=== PATIENT | male | born 1960 | race Caucasian/White ===

== ENCOUNTER 2018-06-25 14:06 | Outpatient (CLI) | payer OTHER, SELFPAY ==
[2018-06-25 14:43] LABS: Hemoglobin A1C 10.6 % (4.5-6.2)
== END 2018-06-25 14:26 ==
PROVIDERS: PCP Family Medicine; Visit Provider Family Medicine
DX: E11.9 Type 2 diabetes mellitus without complications (principal)
CPT/HCPCS: 36415; 83036

== ENCOUNTER 2019-02-12 07:12 | Outpatient (CLI) | payer OTHER, SELFPAY ==
--- NOTE | 2019-02-12 08:00 | DIABASSESS_ITS ---
DESCRIPTION/ASSESSMENT: Jose Guadalupe Torre presents for diabetes self management with current A1c 10.8 having it since having a stroke 3-4 years ago. He currently has symptoms of thirst and frequent urination. Otherwise he feels fine. BMI 38 Food: Breakfast of egg and toast or djiboutian muffin with peanut butter and coffee with cream; lunch is tuna salad with onion, celery, tomato and last night had 2 cups chop suey for supper; planning steak and vegetables for supper tonight. Started having yogurt as evening sweet. Drinks many bottles of water daily; beer 2-3 times a month. 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 After his stroke he loved to Mountain bike but does not do this now. Medication: Takes 90u Lantus as one shot daily in addition to Metformin in addition to his stroke medication. Monitoring: has Freestyle Adama and monitors in the morning generally in the 270-350 range no matter the time of day. Coping: Denies stress or depression although he is bummed out about his financial situation though also feels this is getting better. INTERVENTION: DSME is provided in the following AADE 7 areas based on patients interest and assessment of needs in addition to initiating mealtime insulin. Food Guidelines: Reviewed diabetes food guide focused on carbohydrate identification, portions, label reading. Encouraged non-carbohydrate food choices to be complemented with unprocessed carbohydrates. Physical Activity: Discussed cardiovascular activity in addition to his working in the [employer] which he describes more as resistance activity. Medication: Here to begin mealtime insulin, however we do not know his current blood sugars throughout the day. Suggested he begin monitoring blood sugars before each meal and bedtime and return Friday to set dosing based on blood sugars. Monitoring - As above suggest monitoring before each meal and bedtime; or if symptomatic. ACTION PLAN: Monitor blood sugars before each meal and bedtime; document food. Return Friday for follow up to determine insulin regimen of basal bolus dosing. Individual DSME/T __2__ units billed TIME IN: 814 OUT: 919 No DM group education series being offered at this time.
== END 2019-02-12 07:32 ==
PROVIDERS: PCP Family Medicine; Visit Provider Dietitian, Registered
DX: E11.9 Type 2 diabetes mellitus without complications (principal); Z79.4 Long term (current) use of insulin; Z71.3 Dietary counseling and surveillance
CPT/HCPCS: G0108

== ENCOUNTER 2019-02-15 02:01 | Outpatient (CLI) | payer OTHER, SELFPAY ==
--- NOTE | 2019-02-15 08:00 | DIABASSESS_ITS ---
DESCRIPTION/ASSESSMENT: Jose Guadalupe presents for diabetes self management follow up with blood sugars fasting 433 and today 262. Blood sugar after breakfast were mostly in the 300 range at noon; up to 459 a few hours after a meal. INTERVENTION: Based on his reported blood sugars, he is given an insulin dosing scale: 100-130 - 5 units 131-150 - 6 units 151-170 - 7 units 171-190 - 8 units 191-210 - 9 units 210-230 - 10 units 231-250 - 11 units 251-270 - 12 units 271-290 - 13 units 291-310 - 14 units etc. ACTION PLAN: He agrees to monitor blood sugars before each meal; limit between meal snacks; document all food eaten and insulin given. He plans to return 02/19 for review of efficacy of current dosing regimen. Individual DSME/T __1__ units billed TIME IN: 0820 OUT: 0900 No DM group education series being offered at this time.
== END 2019-02-15 02:21 ==
PROVIDERS: PCP Family Medicine; Visit Provider Dietitian, Registered
DX: E11.9 Type 2 diabetes mellitus without complications (principal); Z79.4 Long term (current) use of insulin; Z71.3 Dietary counseling and surveillance
CPT/HCPCS: G0108

== ENCOUNTER 2019-03-05 11:51 | Emergency (ER) | payer OTHER, SELFPAY ==
[2019-03-05] VITALS (34 sets, daily range): BP systolic 133–172; BP diastolic 64–117; PULSE 61–88; RESP 18; TEMP 36.7; O2SAT 90–98
--- NOTE | 2019-03-05 12:15 | W.ED.GENAD ---
Discharge Plan Disposition Patient Disposition: HOME Condition: Good Discharge Details Chief Complaint: Seizure Clinical Impression: Seizure Primary Care Provider: Jose Alfreod Mendoza ED Provider: Anne Alas Home Meds and New Rx's Prescriptions: Continued (DME) FreeStyle Adama 14 Day Sensor Kit See Rx Instructions .ROUTE .MEDSUPPLY Qty: 1 RF: 0 (DME) FreeStyle Adama 14 Day [place] Misc See Rx Instructions .ROUTE .MEDSUPPLY Qty: 1 RF: 4 Lantus Solostar U-100 Insulin 100 unit/mL (3 mL) insulin pen 100 unit subcut DAILY Qty: 3 RF: 5 Humalog U-100 Insulin 100 unit/mL cartridge See Rx Instructions SC .COMPLEX Qty: 15 RF: 4 (DME) FreeStyle Test 1 EACH strip 1 ea Miscellaneous QID Qty: 360 RF: 5 cilostazol 100 MG tablet 100 mg PO BID Qty: 180 RF: 4 Flovent HFA 12 GM HFA aerosol inhaler 110 mcg Inhalation BID Qty: 3 RF: 3 levalbuterol tartrate [Xopenex HFA] 15 GM HFA aerosol inhaler 2 puff Inhalation Q6H PRN Qty: 3 RF: 4 (DME) blood-glucose meter [FreeStyle Lite Meter] 1 EACH kit 1 ea Miscellaneous DAILY Qty: 1 RF: 0 (DME) pen needle, diabetic [BD Ultra-Fine Helene Pen Needle] 32 gauge x 5/32 needle 1 ea Miscellaneous 5 times daily Qty: 200 RF: 5 chlorthalidone 25 mg tablet 25 mg PO DAILY Qty: 90 RF: 4 clopidogrel [Plavix] 75 mg tablet 75 mg PO DAILY Qty: 90 RF: 4 nifedipine 30 mg tablet extended release 24hr 90 mg PO DAILY Qty: 180 RF: 4 guanfacine 1 mg tablet 1 mg PO HS Qty: 90 RF: 3 atorvastatin [Lipitor] 40 mg tablet 40 mg PO DAILY Qty: 90 RF: 4 Jardiance 10 mg tablet 10 mg PO DAILY Qty: 90 RF: 4 levetiracetam [Keppra] 500 mg tablet 1,000 mg PO BID Qty: 180 RF: 4 metformin 500 mg tablet 500 mg PO BID Qty: 180 RF: 4 losartan 100 mg tablet 100 mg PO DAILY Qty: 90 RF: 3 magnesium oxide 400 MG tablet 800 mg PO DAILY Qty: 30 RF: 0 Patient's Own Medication 1 EACH misc 0 ea PO BID Qty: 0 RF: 0 aspirin 325 mg Tablet 325 mg PO DAILY RF: 0 Discharge Instructions Instructions: Epilepsy (ED), Recurrent Seizures in Adults (ED) Additional Instructions: Drink plenty of fluids and get plenty of rest. Take your regular medications as directed. Call Dr. Kaur on Friday morning to schedule a follow-up appointment for reevaluation. Return immediately to the emergency department if you develop any worsening or new concerning symptoms. Discharge Data Discharge Date/Time-TO BE ENTERED AT DEPARTURE: 03/05/19 16:07 Discharge Physician: Anne Alas Medical Decision Making 1220 -- 58yo M with a history of seizures presents for seizure prior to arrival. Patient states he was walking in a gun store when he started to hear music which he states is his usual aura he experiences prior to his seizure. He states he started to lower himself down and passed out for a few seconds. He states this is similar to but more mild than previous seizures. He states his last seizure was 3 months ago. He has not missed any doses of his Keppra recently and took it this morning. He does also have a history of diabetes and states sugars have been between 200-300. states he does not watch his diet. Patient states he saw Dr. Mendoza this morning for evaluation and some of his diabetes medications were increased. Patient initially stated that he did not eat breakfast this morning. After my evaluation, he said that he ate peanut butter and toast. is concerned as patient seems more confused than usual. Discussed that this may be likely postictal. No acute findings on exam. No focal deficits. No evidence of trauma. BP 161/70. Afebrile. Patient appears nontoxic. We will check screening labs, urinalysis, CT head and give fluids. EKG notes a rate of 68, sinus with no acute ST ischemic changes. 1355 --labs and imaging reviewed. Normal white blood cell count. Potassium 3.2. Troponin indeterminate but elevated at 0.07. Urinalysis notes glucose of blood but no obvious infection. CT head negative for acute findings. Patient feels much better. states that patient appears more alert and back to baseline. Patient denied any chest pain or shortness of breath, so do not expect ACS with indeterminate troponin. We will plan for repeat troponin EKG at 230p. 1500 -- Repeat troponin 0.07. Repeat EKG unremarkable. Case discussed with Dr. Rodarte who stated that you can sometimes see elevated troponin status post seizure. Patient again denies any chest pain or shortness of breath. Suggested patient that we can check a third troponin and EKG but pt would rather go home. Presentation does not appear consistent with ACS. Attempted to reach Dr. Kaur but no response. Advised to call Dr. Kaur on Friday morning for follow-up. Usual and customary return precautions given prior to discharge. Medical Records Medical records reviewed: Yes I reviewed the patient's medical records. Imaging Data Radiologic Study: Radiologist's impression: CT HEAD WO CLINICAL HISTORY: post ictal, confusion r/o acute process TECHNIQUE: COMPARISON: No exams were available for comparison FINDINGS: Noncontrast cranial CT was performed. There is an area of encephalomalacia involving right temporal parietal region consistent with old infarct, comparison with prior study of 12/30/2016 shows some extension since that time. No mass effect. No acute hemorrhage. No midline shift. Ex vacuo phenomenon noted involving right lateral ventricle. The orbital and temporal bone structures appear intact. Mastoid air cells appear intact. There is mucoperiosteal thickening of ethmoid sphenoid and frontal sinuses and to a lesser degree the maxillary antra consistent with mild chronic sinusitis. IMPRESSION: no evidence of acute intracranial process. Lab Data Lab results reviewed: Yes I reviewed the patient's lab results. Labs: Laboratory Tests Range/Units 03/05/19 03/05/19 03/05/19 12:35 12:35 13:03 WBC (4.4-10.8) k/cumm 10.27 RBC (4.50-6.00) m/cumm 5.57 Hgb (13.5-17.5) g/dL 15.4 Hct (40.0-50.0) % 44.8 MCV (80-95) fL 80.4 MCH (27.0-33.0) pg 27.6 MCHC (32.0-36.0) g/dL 34.4 RDW (11.8-14.1) % 14.0 Plt Count (130-400) x1000/uL 206 MPV (8.0-11.0) fL 10.4 Immature Gran % % 0.2 Neutrophils % 74.1 Lymphocytes % 16.2 Monocytes % 5.6 Eosinophils % 3.5 Basophils % 0.4 Absolute Neutrophils (1.2-6.7) k/cumm 7.61 H Absolute Lymphocytes (1.2-3.4) k/cumm 1.66 Absolute Monocytes (0.11-0.7) k/cumm 0.58 Absolute Eosinophils (0.0-0.7) k/cumm 0.36 Absolute Basophils (0.0-0.2) k/cumm 0.04 Sodium (136-145) mmol/L 141 Potassium (3.5-5.1) mmol/L 3.2 L Chloride (98-107) mmol/L 101 Carbon Dioxide (21.0-32.0) mmol/L 31.2 Anion Gap (3-11) mmol/L 8.8 BUN (7-18) mg/dL 18 Creatinine (0.70-1.30) mg/dL 0.69 L Estimated GFR/1.73 m2 (mL/min/1.73m2) >= 60.00 Glucose (74-106) mg/dL 288 H Calcium (8.5-10.1) mg/dL 10.0 Magnesium (1.8-2.4) mg/dL 1.9 Total Bilirubin (0.2-1.0) mg/dL 0.5 AST (15-37) U/L 31 ALT (16-63) U/L 57 Alkaline Phosphatase (46-116) U/L 130 H Troponin I (<0.06) ng/Ml 0.07 Total Protein (6.4-8.2) g/dL 7.0 Albumin (3.4-5.0) g/dL 3.9 Urine Color (Yellow) Yellow Urine Clarity (Clear) Clear Urine pH (5-8) 6.0 Ur Specific [place] (1.005-1.025) 1.010 Urine Protein (Negative) mg/dL 30 H Urine Ketones (Negative) mg/dL Negative Urine Blood (Negative) Trace-lysed H Urine Nitrite (Negative) Negative Urine Bilirubin (Negative) Negative Urine Urobilinogen (Up TO 0.2) EU/dL 0.2 Ur Leukocyte Esterase (Negative) Negative Urine RBC (0-2) HPF 3-5 H Urine WBC (0-5) HPF Negative Ur Epithelial Cells (Negative) HPF Rare Urine Crystals (Negative) HPF Negative Urine Bacteria (Negative) HPF Rare Urine Casts (Negative) LPF Negative Urine Mucus (Negative) Negative Urine Other (Negative) Negative Ur Culture Indicated? No Urine Glucose (Negative) mg/dL 500 H Range/Units 03/05/19 14:30 WBC (4.4-10.8) k/cumm RBC (4.50-6.00) m/cumm Hgb (13.5-17.5) g/dL Hct (40.0-50.0) % MCV (80-95) fL MCH (27.0-33.0) pg MCHC (32.0-36.0) g/dL RDW (11.8-14.1) % Plt Count (130-400) x1000/uL MPV (8.0-11.0) fL Immature Gran % % Neutrophils % Lymphocytes % Monocytes % Eosinophils % Basophils % Absolute Neutrophils (1.2-6.7) k/cumm Absolute Lymphocytes (1.2-3.4) k/cumm Absolute Monocytes (0.11-0.7) k/cumm Absolute Eosinophils (0.0-0.7) k/cumm Absolute Basophils (0.0-0.2) k/cumm Sodium (136-145) mmol/L Potassium (3.5-5.1) mmol/L Chloride (98-107) mmol/L Carbon Dioxide (21.0-32.0) mmol/L Anion Gap (3-11) mmol/L BUN (7-18) mg/dL Creatinine (0.70-1.30) mg/dL Estimated GFR/1.73 m2 (mL/min/1.73m2) Glucose (74-106) mg/dL Calcium (8.5-10.1) mg/dL Magnesium (1.8-2.4) mg/dL Total Bilirubin (0.2-1.0) mg/dL AST (15-37) U/L ALT (16-63) U/L Alkaline Phosphatase (46-116) U/L Troponin I (<0.06) ng/Ml 0.07 Total Protein (6.4-8.2) g/dL Albumin (3.4-5.0) g/dL Urine Color (Yellow) Urine Clarity (Clear) Urine pH (5-8) Ur Specific [place] (1.005-1.025) Urine Protein (Negative) mg/dL Urine Ketones (Negative) mg/dL Urine Blood (Negative) Urine Nitrite (Negative) Urine Bilirubin (Negative) Urine Urobilinogen (Up TO 0.2) EU/dL Ur Leukocyte Esterase (Negative) Urine RBC (0-2) HPF Urine WBC (0-5) HPF Ur Epithelial Cells (Negative) HPF Urine Crystals (Negative) HPF Urine Bacteria (Negative) HPF Urine Casts (Negative) LPF Urine Mucus (Negative) Urine Other (Negative) Ur Culture Indicated? Urine Glucose (Negative) mg/dL ECG Data Attestation: I personally reviewed and interpreted this ECG (s) as follows: Interpretation: #1 -- Rate of 68, sinus, no acute ST elevation or depression. ND 192. QTc 413. QRS 94. #2 --Rate of 66, sinus, no acute ST elevation or depression. ND 122. QTc 404. QRS 94. HPI General Mode of arrival: ambulatory. Date/Time Provider Initiated Documentation: 03/05/19 12:04. Limitations to Documentation: no limitations. Information obtained by: patient. History of Present Illness 58 year old M presents to the emergency department with the chief complaint of seizure, Patient started experiencing this hour(s) (2) and it has been now resolved. No relieving factors improve symptom(s), No exacerbating factors reported . Patient notes seizure. Patient did receive the following treatments prior to arrival, none Related Data Home Medications Medication Instructions Recorded Confirmed FreeStyle Test #360 strip 03/14/16 03/05/19 cilostazol 100 mg PO BID #180 tab-cap 11/14/16 03/05/19 Patient's Own Medication 0 ea PO BID #0 misc 01/01/17 03/05/19 magnesium oxide 800 mg PO DAILY #30 tab 01/01/17 03/05/19 Flovent HFA 110 mcg INHALATION BID #3 inhaler 02/27/17 03/05/19 blood-glucose meter [FreeStyle #1 kit 02/27/17 03/05/19 Lite Meter] levalbuterol tartrate [Xopenex HFA] 2 puff INHALATION Q6H PRN #3 02/27/17 03/05/19 inhaler pen needle, diabetic 32 gauge x #200 ea 02/03/18 03/05/19 chlorthalidone 25 mg tablet 25 mg PO DAILY #90 tab-cap 06/08/18 03/05/19 clopidogrel 75 mg tablet 75 mg PO DAILY #90 tab 07/10/18 03/05/19 nifedipine 30 mg tablet,extended 90 mg PO DAILY #180 tab-cap 07/23/18 03/05/19 release 24 hr guanfacine 1 mg tablet 1 mg PO HS #90 tab-cap 11/23/18 03/05/19 atorvastatin 40 mg tablet 40 mg PO DAILY #90 tab-cap 12/01/18 03/05/19 empagliflozin 10 mg tablet 10 mg PO DAILY #90 tab 01/01/19 03/05/19 flash glucose scanning reader #1 each 01/01/19 03/05/19 flash glucose sensor #1 each 01/01/19 03/05/19 levetiracetam 500 mg tablet 1,000 mg PO BID #180 tab 01/25/19 03/05/19 metformin 500 mg tablet 500 mg PO BID #180 tab 03/02/19 03/05/19 losartan 100 mg tablet 100 mg PO DAILY #90 tab-cap 03/03/19 03/05/19 aspirin 325 mg PO DAILY 03/05/19 03/05/19 insulin glargine 100 unit/mL (3 100 unit SUBCUT DAILY #3 ml 03/05/19 03/05/19 mL) subcutaneous pen insulin lispro 100 unit/mL See Rx Instructions SC .COMPLEX 03/05/19 03/05/19 subcutaneous cartridge #15 ml Previous Rx's Medication Instructions Recorded cilostazol 100 mg PO BID #180 tab-cap 11/14/16 Patient's Own Medication 0 ea PO BID #0 misc 01/01/17 magnesium oxide 800 mg PO DAILY #30 tab 01/01/17 Flovent HFA 110 mcg INHALATION BID #3 inhaler 02/27/17 blood-glucose meter [FreeStyle #1 kit 02/27/17 Lite Meter] levalbuterol tartrate [Xopenex HFA] 2 puff INHALATION Q6H PRN #3 02/27/17 inhaler pen needle, diabetic 32 gauge x #200 ea 02/03/18 chlorthalidone 25 mg tablet 25 mg PO DAILY #90 tab-cap 06/08/18 clopidogrel 75 mg tablet 75 mg PO DAILY #90 tab 07/10/18 nifedipine 30 mg tablet,extended 90 mg PO DAILY #180 tab-cap 07/23/18 release 24 hr guanfacine 1 mg tablet 1 mg PO HS #90 tab-cap 11/23/18 atorvastatin 40 mg tablet 40 mg PO DAILY #90 tab-cap 12/01/18 empagliflozin 10 mg tablet 10 mg PO DAILY #90 tab 01/01/19 flash glucose scanning reader #1 each 01/01/19 flash glucose sensor #1 each 01/01/19 levetiracetam 500 mg tablet 1,000 mg PO BID #180 tab 01/25/19 metformin 500 mg tablet 500 mg PO BID #180 tab 03/02/19 losartan 100 mg tablet 100 mg PO DAILY #90 tab-cap 03/03/19 insulin glargine 100 unit/mL (3 100 unit SUBCUT DAILY #3 ml 03/05/19 mL) subcutaneous pen insulin lispro 100 unit/mL See Rx Instructions SC .COMPLEX 03/05/19 subcutaneous cartridge #15 ml Allergies Allergy/AdvReac Type Severity Reaction Status Date / Time metformin AdvReac Intermediate Diarrhea Unverified 03/05/19 12:48 General Stated Complaint: Seizure JIM: 3 Review of Systems All systems reviewed & are unremarkable except as noted in HPI and below Constitutional Constitutional: Reports as per HPI, Denies chills and Denies fever(s) Eyes Eyes: Denies blurry vision ENT Ears, Nose, Mouth, and Throat: Denies dizziness, Denies sore throat and Denies throat swelling Cardiovascular Cardiovascular: Denies chest pain and Denies dyspnea Respiratory Respiratory: Denies cough and Denies dyspnea Gastrointestinal Gastrointestinal: Denies abdominal pain, Denies diarrhea and Denies vomiting Genitourinary Genitourinary: Denies hematuria and Denies dysuria Musculoskeletal Musculoskeletal: Denies back pain and Denies numbness Integumentary/Breasts Skin/Breast: Denies lesions and Denies rash Neurologic Neurologic: Denies dizziness, Denies focal weakness, Denies numbness and Reports seizure-like activity Allergic/Immunologic Allergic/Immunologic: Denies throat swelling [facility] Medical History (Updated 06/25/18 @ 13:29 by Jose Alfredo Mendoza MD) Asthma (Chronic 06/24/12) Cerebrovascular accident (CVA) due to thrombosis of middle cerebral artery (Chronic 09/12/15) Essential hypertension (Chronic 12/10/12) Hypokalemia (Resolved) Hypomagnesemia (Resolved) Morbid obesity due to excess calories (Chronic 05/26/15) Peripheral vascular disease (Chronic 03/28/16) Status post blilateral femoral artery stents. 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 Father Diabetes Essential hypertension Heart disease Stroke Sister No problems noted. Sister No problems noted. Sister No problems noted. Sister No problems noted. Sister No problems noted. Brother Essential hypertension Brother No problems noted. Brother No problems noted. Brother No problems noted. Brother No problems noted. Grandfather No problems noted. Grandfather Diabetes Neoplasm Grandmother Heart disease Grandmother No problems noted. Daughter No problems noted. Daughter No problems noted. Daughter No problems noted. Social History Smoking/Tobacco Use Status: Former Tobacco Use Drug use: Never Do you feel safe in your relationship?: Yes Exam Const General: cooperative, healthy appearing and no acute distress HENMT Head: normal to inspection Face and sinus: normal facial exam Eyes General: appearance normal, both eyes and all related structures Pupils: PERRL EOM: EOM intact bilaterally Neck Neck: normal visual inspection and No submandibular swelling Lymphatic: no lymphadenopathy noted Chest Chest: normal inspection of the chest and no tenderness Resp Effort & Inspection: normal respiratory effort and able to speak in complete sentences Auscultation: clear to auscultation bilaterally Cardio Rate: regular rate Rhythm: regular rhythm GI Inspection: normal to inspection Palpation: soft, not firm, not rigid and nontender Auscultation: normal bowel sounds Skin General skin exam: no rashes or lesions noted Neuro General: alert, awake and oriented x3 Cognition: normal cognition Speech: speech normal Motor: muscle tone normal throughout Sensory Exam: no sensory deficits noted Extrem General: normal to inspection, full ROM, normal capillary refill, no calf tenderness bilaterally and no edema Psych Appearance: grossly normal Mental Status: mental status grossly normal Speech and Movement: speech and movement normal Affect: normal affect Course Vital Signs Vital signs: Vital Signs Temperature 98.1 F 03/05/19 11:54 Pulse 61 03/05/19 11:54 Blood Pressure 161/70 H 03/05/19 11:54 Pulse Oximetry 98 03/05/19 11:54 Temperature 98.1 F 03/05/19 11:54 Temperature Source Skin 03/05/19 11:54 Pulse 61 03/05/19 11:54 Respiratory Effort Non-Labored 03/05/19 12:03 Blood Pressure 161/70 H 03/05/19 11:54 Blood Pressure Position Supine 03/05/19 11:54 Pulse Oximetry 98 03/05/19 11:54 Oxygen Delivery Method Room Air 03/05/19 11:54 Oxygen Flow Rate 0 03/05/19 11:54 Pain Level 0 03/05/19 11:54
[2019-03-05] MEDS: Normal Saline Flush 10 ML SYR IVP (12:42)
[2019-03-05] MEDS: Normal Saline 1,000 ML 1000 ML IV (12:42)
[2019-03-05 12:47] LABS: Abs Immature Grans 0.02 k/cumm (0.0-0.09); Absolute Basophil Count 0.04 k/cumm (0.0-0.2); Absolute Eosinophil Count 0.36 k/cumm (0.0-0.7); Absolute Lymphocyte Count 1.66 k/cumm (1.2-3.4); Absolute Monocyte Count 0.58 k/cumm (0.11-0.7); Absolute Neutrophil Count 7.61 k/cumm (1.2-6.7); Basophils % 0.4; Eosinophils % 3.5; HCT 44.8 % (40.0-50.0); HGB 15.4 g/dL (13.5-17.5); Immature Grans % 0.2 %; Lymphocytes % 16.2; Mean Corp. HGB Concentration 34.4 g/dL (32.0-36.0); Mean Corpuscular Hemoglobin 27.6 pg (27.0-33.0); Mean Corpuscular Volume 80.4 fL (80-95); Mean Platelet Volume 10.4 fL (8.0-11.0); Monocytes % 5.6; Neutrophils % 74.1; Platelet Count 206 x1000/uL (130-400); RBC 5.57 m/cumm (4.50-6.00); White Blood Cell Count 10.27 k/cumm (4.4-10.8)
[2019-03-05 13:06] LABS: ALT 57 U/L (16-63); AST 31 U/L (15-37); Albumin 3.9 g/dL (3.4-5.0); Alkaline Phosphatase 130 U/L (46-116); Anion Gap 8.8 mmol/L (3-11); BUN 18 mg/dL (7-18); Bilirubin, Total 0.5 mg/dL (0.2-1.0); CO2 31.2 mmol/L (21.0-32.0); CREATININE 0.69 mg/dL (0.70-1.30); Chloride 101 mmol/L (98-107); Glucose 288 mg/dL (74-106); Magnesium 1.9 mg/dL (1.8-2.4); Potassium 3.2 mmol/L (3.5-5.1); Sodium 141 mmol/L (136-145)
[2019-03-05 13:08] LABS: Troponin I 0.07 ng/Ml (<0.06)
--- NOTE | 2019-03-05 13:12 | DI.CT_ITS ---
EXAM: CT HEAD WO CLINICAL HISTORY: post ictal, confusion r/o acute process TECHNIQUE: COMPARISON: No exams were available for comparison FINDINGS: Noncontrast cranial CT was performed. There is an area of encephalomalacia involving right temporal parietal region consistent with old infarct, comparison with prior study of 12/30/2016 shows some ex tension since that time. No mass effect. No acute hemorrhage. No midline shift. Ex vacuo phenomen on noted involving right lateral ventricle. The orbital and temporal bone structures appear intact. Mastoid air cells appear intact. There is m ucoperiosteal thickening of ethmoid sphenoid and frontal sinuses and to a lesser degree the maxillary antra consistent with mild chronic sinusitis. IMPRESSION: no evidence of acute intracranial process.
[2019-03-05 13:26] LABS: Bilirubin Negative (Negative); Blood Trace-lysed (Negative); Clarity Clear (Clear); Glucose 500 mg/dL (Negative); Ketones Negative (Negative); Leukocyte Esterase Negative (Negative); Nitrite Negative (Negative); Urobilinogen 0.2 EU/dL (Up TO 0.2)
[2019-03-05 13:36] LABS: Bacteria Rare HPF (Negative); C & S Indicated? No; Casts Negative LPF (Negative); Crystals Negative HPF (Negative); Epithelial Cells Rare HPF (Negative); Mucus Negative (Negative); Other Cells Negative (Negative); WBC Negative HPF (0-5)
[2019-03-05] MEDS: Potassium Chloride 20 MEQ TABCR 40 MEQ PO (15:09)
[2019-03-05 15:35] LABS: Troponin I 0.07 ng/Ml (<0.06)
[2019-03-07 14:07] LABS: Levetiracetam 10.2 mcg/mL
== END 2019-03-05 16:07 | disposition home or self-care (01) ==
PROVIDERS: Emergency Provider Physician Assistant; PCP Family Medicine
DX: R56.9 Unspecified convulsions (principal); I10 Essential (primary) hypertension; E11.9 Type 2 diabetes mellitus without complications; Z79.4 Long term (current) use of insulin
CPT/HCPCS: 36416; 80053; 82962; 93005; 96360; 99285; 70450; 80177; 81003; 81015; 83735; 84484; 85025; 93010; 99284

== ENCOUNTER 2019-03-22 10:47 | Outpatient (CLI) | payer OTHER, SELFPAY | END 2019-03-22 11:07 | PROVIDERS: PCP Family Medicine; Visit Provider Family Medicine | DX: G40.909 Epilepsy, unspecified, not intractable, without status epilepticus (principal); Z51.81 Encounter for therapeutic drug level monitoring | CPT/HCPCS: 36415; 80177 ==

== ENCOUNTER 2020-02-14 15:25 | Inpatient (IN) | payer OTHER, SELFPAY ==
[2020-02-14] VITALS (7 sets, daily range): BP systolic 144–183; BP diastolic 72–90; PULSE 94–108; RESP 16–18; TEMP 36.7–38.7; O2SAT 96–100
--- NOTE | 2020-02-14 15:45 | DI.RAD_ITS ---
EXAM: XR TOE LT SECOND CLINICAL HISTORY: Cellulitis, s/p crush inj. TECHNIQUE: 2D digital imaging was performed. COMPARISON: No exams were available for comparison FINDINGS: BONES: No acute fracture is present. On the oblique view, there is a question of cortical disruption at the margins of the terminal tuft of the distal phalanx of the 2nd toe. Osteomyelitis cannot be e xcluded. JOINTS: No dislocation present. SOFT TISSUE: There is soft tissue swelling of the great toe and 2nd toe. There is air in the soft ti ssues of the 2nd toe particularly distally. There is marked thinning of the soft tissues overlying t he terminal tuft of the distal phalanx of the right 2nd toe. Please correlate with physical exam as to bone exposure. IMPRESSION: 1. Soft tissue swelling and subcutaneous air in the 2nd toe consistent with infection. 2. Question of cortical disruption involving the medial lateral aspects of the terminal tuft of the 2 nd toe. Osteomyelitis should be considered. MRI may be obtained for further evaluation. DATA REPOSITORY: RADIATION DOSE DELIVERED:
--- NOTE | 2020-02-14 15:48 | W.ED.GENAD ---
Discharge Plan Disposition Patient Disposition: [facility] INPATIENT Condition: Stable Discharge Details Clinical Impression: Osteomyelitis Primary Care Provider: Reji Coffman ED Provider: Mohinder Bhatt Home Meds and New Rx's Prescriptions: No Action (DME) FreeStyle Adama 14 Day Sensor Kit See Rx Instructions .ROUTE .MEDSUPPLY Qty: 1 RF: 0 (DME) FreeStyle Adama 14 Day [place] Misc See Rx Instructions .ROUTE .MEDSUPPLY Qty: 1 RF: 4 Jardiance 10 mg tablet 10 mg PO DAILY Qty: 90 RF: 4 guanfacine 1 mg tablet 1 mg PO HS Qty: 90 RF: 3 Flovent HFA 110 mcg/actuation HFA aerosol inhaler 110 mcg Inhalation BID PRNRF: 0 Lantus Solostar U-100 Insulin 100 unit/mL (3 mL) insulin pen 85 unit subcut Q12H RF: 0 (DME) FreeStyle Test 1 EACH strip 1 ea Miscellaneous QID Qty: 360 RF: 5 cilostazol 100 MG tablet 100 mg PO BID Qty: 180 RF: 4 levalbuterol tartrate [Xopenex HFA] 15 GM HFA aerosol inhaler 2 puff Inhalation Q6H PRN Qty: 3 RF: 4 (DME) blood-glucose meter [FreeStyle Lite Meter] 1 EACH kit 1 ea Miscellaneous DAILY Qty: 1 RF: 0 (DME) pen needle, diabetic [BD Ultra-Fine Helene Pen Needle] 32 gauge x 5/32 needle 1 ea Miscellaneous 5 times daily Qty: 200 RF: 5 losartan 100 mg tablet 100 mg PO DAILY Qty: 90 RF: 3 nifedipine 30 mg tablet extended release 24hr 90 mg PO DAILY Qty: 180 RF: 4 chlorthalidone 25 mg tablet 25 mg PO DAILY Qty: 90 RF: 4 clopidogrel [Plavix] 75 mg tablet 75 mg PO DAILY Qty: 90 RF: 4 levetiracetam [Keppra] 500 mg tablet 1,000 mg PO BID Qty: 180 RF: 4 atorvastatin [Lipitor] 40 mg tablet 40 mg PO DAILY Qty: 90 RF: 4 insulin lispro 100 unit/mL insulin pen 5 - 20 unit subcut TID RF: 0 magnesium oxide 400 MG tablet 800 mg PO DAILY Qty: 30 RF: 0 aspirin 325 mg Tablet 325 mg PO DAILY RF: 0 Medical Decision Making 67-year-old male diabetic states he was stepped on by a 2,000 lb horse approximately Dec.27, was seen in clinic 2-3 days later and was placed Keflex for 14 days which he finished before . He has not yet had an XRay of the toe since the original injury. Today he reports 1 week of increased fusiform swelling and discomfort. Seen in urgent care and referred to the ER. His confirms his history of 7 to 10 days of increased swelling, with associated elevated glucose to 400s. He is slightly tachycardic but afebrile. THe left second toe is fusiformly swollen, tender, and erythematous with distal dry ganggrene present over distal phalanx. IV access established, blood cultures laboratories. Referred for x-ray and patient given loading dose of Vancomycin. XR: Air soft tissues of the 2nd distal phalanx. Bony changes consistent with osteomyelitis. Labs: White blood cell count 13. Hct 48. Left shift present. Sed rate elevated at 24. CRp elevated to 24. Case discussedwith Dr Azul for admission as well as Dr Flores's office who state he is available for consult on the patient tomorrow. Lab Data Lab results reviewed: Yes I reviewed the patient's lab results. Labs: Laboratory Results - last 24 hr 02/14/20 02/14/20 02/14/20 16:00 16:00 16:35 WBC 13.29 H RBC 6.00 H Hgb 16.2 Hct 48.3 MCV 80.5 MCH 27.0 MCHC 33.5 RDW 13.5 Plt Count 243 MPV 10.1 Immature Gran % 0.3 Neutrophils % 78.2 Lymphocytes % 12.6 Monocytes % 7.8 Eosinophils % 0.8 Basophils % 0.3 Nucleated RBC % 0 Absolute Neutrophils 10.39 H Absolute Lymphocytes 1.67 Absolute Monocytes 1.04 H Absolute Eosinophils 0.11 Absolute Basophils 0.04 ESR 24 H Sodium 135 L Potassium 3.3 L Chloride 97 L Carbon Dioxide 30.5 Anion Gap 7.5 BUN 30 H Creatinine 0.96 Estimated GFR/1.73 m2 >= 60.00 Glucose 281 H Calcium 10.9 H Magnesium 2.0 Total Bilirubin 0.6 AST 15 ALT 33 Alkaline Phosphatase 114 C-Reactive Protein 12.48 H Total Protein 7.8 Albumin 3.5 Urine Color Yellow Urine Clarity Clear Urine pH 5.5 Ur Specific [place] 1.020 Urine Protein 100 H Urine Ketones 15 H Urine Blood Small H Urine Nitrite Negative Urine Bilirubin Negative Urine Urobilinogen 0.2 Ur Leukocyte Esterase Negative Urine RBC Negative Urine WBC Negative Ur Epithelial Cells Negative Urine Crystals Negative Urine Bacteria Negative Urine Casts Negative Urine Mucus Negative Urine Other Negative Ur Culture Indicated? No Urine Glucose 500 H HPI General Mode of arrival: ambulatory. Date/Time Provider Initiated Documentation: 02/14/20 15:26. Limitations to Documentation: no limitations. Information obtained by: patient. History of Present Illness 59 year old M presents to the emergency department with the chief complaint of Referred from urgent care for toe infection, described as moderate, Quality is described as dull and constant, and is localized to the left and lower extremity. Patient reports no radiation. Patient started experiencing this week(s) and it has been constant. Rest improves symptom(s), Other factors that worsen symptoms (rubbing against) . Patient notes no other symptoms.; denies fever/chills and nausea/vomiting. Patient did receive the following treatments prior to arrival, none Related Data Home Medications Medication Instructions Recorded Confirmed FreeStyle Test #360 strip 03/14/16 02/14/20 cilostazol 100 mg PO BID #180 tab-cap 11/14/16 02/14/20 magnesium oxide 800 mg PO DAILY #30 tab 01/01/17 02/14/20 blood-glucose meter [FreeStyle #1 kit 02/27/17 02/14/20 Lite Meter] levalbuterol tartrate [Xopenex HFA] 2 puff INHALATION Q6H PRN #3 02/27/17 02/14/20 inhaler pen needle, diabetic 32 gauge x #200 ea 02/03/18 02/14/20 5/32 flash glucose scanning reader #1 each 01/01/19 02/14/20 flash glucose sensor #1 each 01/01/19 02/14/20 losartan 100 mg tablet 100 mg PO DAILY #90 tab-cap 03/03/19 02/14/20 aspirin 325 mg PO DAILY 03/05/19 02/14/20 chlorthalidone 25 mg tablet 25 mg PO DAILY #90 tab-cap 06/14/19 02/14/20 nifedipine 30 mg tablet,extended 90 mg PO DAILY #180 tab-cap 06/14/19 02/14/20 release 24 hr clopidogrel 75 mg tablet 75 mg PO DAILY #90 tab 07/12/19 02/14/20 levetiracetam 500 mg tablet 1,000 mg PO BID #180 tab 07/23/19 02/14/20 empagliflozin 10 mg tablet 10 mg PO DAILY #90 tab 11/05/19 02/14/20 guanfacine 1 mg tablet 1 mg PO HS #90 tab-cap 11/05/19 02/14/20 atorvastatin 40 mg tablet 40 mg PO DAILY #90 tab-cap 12/12/19 02/14/20 insulin lispro 100 unit/mL 5 - 20 unit SUBCUT TID ml 01/12/20 02/14/20 subcutaneous pen fluticasone propionate 110 110 mcg INHALATION BID PRN inhaler 01/17/20 02/14/20 mcg/actuation HFA aerosol inhaler insulin glargine 100 unit/mL (3 85 unit SUBCUT Q12H ml 01/17/20 02/14/20 mL) subcutaneous pen Previous Rx's Medication Instructions Recorded cilostazol 100 mg PO BID #180 tab-cap 11/14/16 magnesium oxide 800 mg PO DAILY #30 tab 01/01/17 blood-glucose meter [FreeStyle #1 kit 02/27/17 Lite Meter] levalbuterol tartrate [Xopenex HFA] 2 puff INHALATION Q6H PRN #3 02/27/17 inhaler pen needle, diabetic 32 gauge x #200 ea 02/03/18 flash glucose scanning reader #1 each 01/01/19 flash glucose sensor #1 each 01/01/19 losartan 100 mg tablet 100 mg PO DAILY #90 tab-cap 03/03/19 chlorthalidone 25 mg tablet 25 mg PO DAILY #90 tab-cap 06/14/19 nifedipine 30 mg tablet,extended 90 mg PO DAILY #180 tab-cap 06/14/19 release 24 hr clopidogrel 75 mg tablet 75 mg PO DAILY #90 tab 07/12/19 levetiracetam 500 mg tablet 1,000 mg PO BID #180 tab 07/23/19 empagliflozin 10 mg tablet 10 mg PO DAILY #90 tab 11/05/19 guanfacine 1 mg tablet 1 mg PO HS #90 tab-cap 11/05/19 atorvastatin 40 mg tablet 40 mg PO DAILY #90 tab-cap 12/12/19 Allergies Allergy/AdvReac Type Severity Reaction Status Date / Time metformin AdvReac Intermediate Diarrhea Verified 02/14/20 15:35 General Stated Complaint: Cellulitis JIM: 3 Review of Systems Narrative: nauseated. elevated glucose to 400's. [facility] Medical History Asthma (06/24/12) Cerebrovascular accident (CVA) due to thrombosis of middle cerebral artery (09/12/15) Essential hypertension (12/10/12) Hypokalemia Hypomagnesemia Morbid obesity due to excess calories (05/26/15) Peripheral vascular disease (03/28/16) Status post blilateral femoral artery stents. 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 Father Diabetes Essential hypertension Heart disease Stroke Sister No problems noted. Sister No problems noted. Sister No problems noted. Sister No problems noted. Sister No problems noted. Brother Essential hypertension Brother No problems noted. Brother No problems noted. Brother No problems noted. Brother No problems noted. Grandfather No problems noted. Grandfather Diabetes Neoplasm Grandmother Heart disease Grandmother No problems noted. Daughter No problems noted. Daughter No problems noted. Daughter No problems noted. Social History Smoking/Tobacco Use Status: Never Smoking risk assessment performed?: Yes Alcohol Intake: never Drug use: Never Substance use type: does not use Do you feel safe in your relationship?: Yes Exam Narrative Exam Narrative: GEN: awake, alert, oriented 3. Pleasant, well groomed, interactive. HEAD: Normocephalic, atraumatic ENT: Mucous membranes moist, oropharynx unremarkable, External ear exam unremarkable EYES: PERRL, EOMI NECK: Full ROM, no MICKY, no menigismus CHEST/RESP: Nontender, clear to auscultation bilateral, no wheeze/rhonchi/rales CARDIOVASCULAR: Regular tachycardia, no murmur, rub yudith. 2+ Rad pulse bilateral ABDOMEN: Soft, nontender, no mass. +Bowel sounds EXT: Full ROM, L second toe with fusiform erythema, distal dry gangrene, distal left foot erythematous, swollen, tender. Neuro: Grossly normal neurologic exam, conversant, interactive. Psych: Speech fluent, thoughts congruent, affect normal Course Vital Signs Vital signs: Vital Signs Temperature 37.1 C 02/14/20 15:30 Pulse 105 H 02/14/20 15:30 Respiratory Rate 16 02/14/20 15:30 Blood Pressure 183/78 H 02/14/20 15:30 Pulse Oximetry 100 02/14/20 15:30 Temperature 37.1 C 02/14/20 15:30 Temperature Source Skin 02/14/20 15:30 Pulse 105 H 02/14/20 15:30 Respiratory Rate 16 02/14/20 15:30 Respiratory Effort Non-Labored 02/14/20 15:30 Blood Pressure 183/78 H 02/14/20 15:30 Blood Pressure Position Supine 02/14/20 15:30 Pulse Oximetry 100 02/14/20 15:30 Oxygen Delivery Method Room Air 02/14/20 15:30 Oxygen Flow Rate 0 02/14/20 15:30 Pain Level 1 02/14/20 15:30
[2020-02-14] MEDS: Normal Saline 1,000 ML 125 ML IV ×2 (16:00→20:57)
[2020-02-14] MEDS: Normal Saline Flush 10 ML SYR IVP (16:00)
[2020-02-14 16:08] LABS: Abs Immature Grans 0.04 10^3/uL (0.0-0.06); Absolute Basophil Count 0.04 10^3/uL (0.0-0.2); Absolute Eosinophil Count 0.11 10^3/uL (0.0-0.7); Absolute Lymphocyte Count 1.67 10^3/uL (1.2-3.4); Basophils % 0.3; Eosinophils % 0.8; HCT 48.3 % (40.0-50.0); HGB 16.2 g/dL (13.5-17.5); Immature Grans % 0.3; Lymphocytes % 12.6; MCHC 33.5 % (32.0-36.0); MCV 80.5 fL (80-95); MPV 10.1 fL (8.0-11.0); Monocytes % 7.8; Neutrophils % 78.2; Nucleated RBC 0 %; Platelet Count 243 10^3/uL (130-400); RDW 13.5 % (11.8-14.1); RDW-SD 39.1 fL; WBC 13.29 10^3/uL (4.4-10.8)
[2020-02-14 16:10] LABS: Absolute Monocyte Count 1.04 10^3/uL (0.1-0.8); Absolute Neutrophil Count 10.39 10^3/uL (1.2-6.7)
[2020-02-14] MEDS: VANCOMYCIN/WATER (PEG) 2 GM/400 ML BAG IVPB (16:20)
[2020-02-14 16:27] LABS: ALT 33 U/L (16-63); AST 15 U/L (15-37); Albumin 3.5 g/dL (3.4-5.0); Alkaline Phosphatase 114 U/L (46-116); Anion Gap 7.5 mmol/L (3-11); BUN 30 mg/dL (7-18); Bilirubin, Total 0.6 mg/dL (0.2-1.0); C-Reactive Protein 12.48 mg/dL (0.0-0.3); CO2 30.5 mmol/L (21.0-32.0); CREATININE 0.96 mg/dL (0.70-1.30); Calcium 10.9 mg/dL (8.5-10.1); Chloride 97 mmol/L (98-107); Glucose 281 mg/dL (74-106); Potassium 3.3 mmol/L (3.5-5.1); Sodium 135 mmol/L (136-145); Total Protein 7.8 g/dL (6.4-8.2)
[2020-02-14 16:38] LABS: Bilirubin Negative (Negative); Blood Small (Negative); Clarity Clear (Clear); Glucose 500 mg/dL (Negative); Ketones 15 mg/dL (Negative); Leukocyte Esterase Negative (Negative); Nitrite Negative (Negative); Urobilinogen 0.2 EU/dL (Up TO 0.2); pH 5.5 (5-8)
[2020-02-14 16:43] LABS: ESR 24 mm/hr (1-20)
[2020-02-14 16:47] LABS: Bacteria Negative HPF (Negative); C & S Indicated? No; Casts Negative LPF (Negative); Crystals Negative HPF (Negative); Epithelial Cells Negative HPF (Negative); Mucus Negative (Negative); Other Cells Negative (Negative); RBC Negative HPF (0-2); WBC Negative HPF (0-5)
--- NOTE | 2020-02-14 16:49 | DI.VRAD_ITS ---
PROCEDURE INFORMATION: Exam: XR Left Toe(s) Exam date and time: 02/14/2020 4:40 PM Age: 59 years old Clinical indication: Injury or trauma; Other: Cellulitis; Crushing; Toes; Left lesser toe(s) TECHNIQUE: Imaging protocol: XR Left toes. Views: Minimum 2 views. COMPARISON: No relevant prior studies available. FINDINGS: Bones/joints: There is no evidence of acute fracture.There is no evidence of malalignment or dislocation. There is air within the bone consistent with osteomyelitis. Soft tissues: Air in the soft tissues in the distal toe phalanx of the 2nd toe. Consistent with infection . IMPRESSION: 1. There is no evidence of acute fracture.There is no evidence of malalignment or dislocation. 2. Air in the soft tissues in the distal toe phalanx of the 2nd toe. Consistent with infection . 3. There is air within the bone consistent with osteomyelitis. Dictated and Authenticated by: Martha Callaway MD. Ordering:SONAM Vines MD
--- NOTE | 2020-02-14 17:36 | W.PM.HP.N ---
Date of service: 02/14/20 Time of Service: 17:36 Assessment and Plan Assessment and plan (1) Osteomyelitis: Status: Acute Assessment and plan: Osteo of toe in diabetic with PVD. Will need biopsy, will likely eventuate in amputation of at least the distal phalanx. Will consult podiatry. In meantime will change antibiotics to more broad spectrum coverage for presumed polymicrobial infection. History of Present Illness History of Present Illness Chief Complaint: toe pain Narrative: 59 male diabetic with PVD -- horse stepped on left foot early December, developed infection and was treated with Keflex for 2 weeks. Largely resolved, but never entirely, and has had persistent eschar distal 2nd toe. Now has one week of increasing redness, swelling and pain in toe. In ER findings of note for white count 13, CRP 12 and film demonstrating findings of osteo in distal phalanx. Given loading dose Vanco and admitted for further management. Review of Systems All systems reviewed & are unremarkable except as noted in HPI and below PFSH Medical History Asthma (06/24/12) Cerebrovascular accident (CVA) due to thrombosis of middle cerebral artery (09/12/15) Essential hypertension (12/10/12) Hypokalemia Hypomagnesemia Morbid obesity due to excess calories (05/26/15) Peripheral vascular disease (03/28/16) Status post blilateral femoral artery stents. 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 Father Diabetes Essential hypertension Heart disease Stroke Sister No problems noted. Sister No problems noted. Sister No problems noted. Sister No problems noted. Sister No problems noted. Brother Essential hypertension Brother No problems noted. Brother No problems noted. Brother No problems noted. Brother No problems noted. Grandfather No problems noted. Grandfather Diabetes Neoplasm Grandmother Heart disease Grandmother No problems noted. Daughter No problems noted. Daughter No problems noted. Daughter No problems noted. Social History Smoking/Tobacco Use Status: Never Smoking risk assessment performed?: Yes Alcohol Intake: never Drug use: Never Substance use type: does not use Do you feel safe in your relationship?: Yes Meds Home Medications and Allergies Home Medications Medication Instructions Recorded Confirmed Type FreeStyle Test #360 strip 03/14/16 02/14/20 History cilostazol 100 mg PO BID #180 tab-cap 11/14/16 02/14/20 Rx magnesium oxide 800 mg PO DAILY #30 tab 01/01/17 02/14/20 Rx blood-glucose meter [FreeStyle #1 kit 02/27/17 02/14/20 Rx Lite Meter] levalbuterol tartrate [Xopenex HFA] 2 puff INHALATION Q6H PRN #3 02/27/17 02/14/20 Rx inhaler pen needle, diabetic 32 gauge x #200 ea 02/03/18 02/14/20 Rx 5/32 flash glucose scanning reader #1 each 01/01/19 02/14/20 Rx flash glucose sensor #1 each 01/01/19 02/14/20 Rx losartan 100 mg tablet 100 mg PO DAILY #90 tab-cap 03/03/19 02/14/20 Rx aspirin 325 mg PO DAILY 03/05/19 02/14/20 History chlorthalidone 25 mg tablet 25 mg PO DAILY #90 tab-cap 06/14/19 02/14/20 Rx nifedipine 30 mg tablet,extended 90 mg PO DAILY #180 tab-cap 06/14/19 02/14/20 Rx release 24 hr clopidogrel 75 mg tablet 75 mg PO DAILY #90 tab 07/12/19 02/14/20 Rx levetiracetam 500 mg tablet 1,000 mg PO BID #180 tab 07/23/19 02/14/20 Rx empagliflozin 10 mg tablet 10 mg PO DAILY #90 tab 11/05/19 02/14/20 Rx guanfacine 1 mg tablet 1 mg PO HS #90 tab-cap 11/05/19 02/14/20 Rx atorvastatin 40 mg tablet 40 mg PO DAILY #90 tab-cap 12/12/19 02/14/20 Rx insulin lispro 100 unit/mL 5 - 20 unit SUBCUT TID ml 01/12/20 02/14/20 History subcutaneous pen fluticasone propionate 110 110 mcg INHALATION BID PRN inhaler 01/17/20 02/14/20 History mcg/actuation HFA aerosol inhaler insulin glargine 100 unit/mL (3 85 unit SUBCUT Q12H ml 01/17/20 02/14/20 History mL) subcutaneous pen Allergies Allergy/AdvReac Type Severity Reaction Status Date / Time metformin AdvReac Intermediate Diarrhea Verified 02/14/20 15:35 Exam Narrative Exam Narrative: 183/78, 105, 37.1, 16, 100% RA. HEENT unremarkable; neck supple; lungs clear; heart distant but RRR; abdomen soft and NT; extremities dry gangrene distal left 2nd toe, with fusiform swelling and erythema involving entire digit and somewhat proximal tometatarsal. Right opedal pulses weakly palpable; left DP pulse weakly obtainable by Doppler, though good capillary refill Results Labs Result diagrams: 02/14/20 16:00 02/14/20 16:00 Labs: Laboratory Results - last 24 hr 02/14/20 02/14/20 02/14/20 16:00 16:00 16:35 WBC 13.29 H RBC 6.00 H Hgb 16.2 Hct 48.3 MCV 80.5 MCH 27.0 MCHC 33.5 RDW 13.5 Plt Count 243 MPV 10.1 Immature Gran % 0.3 Neutrophils % 78.2 Lymphocytes % 12.6 Monocytes % 7.8 Eosinophils % 0.8 Basophils % 0.3 Nucleated RBC % 0 Absolute Neutrophils 10.39 H Absolute Lymphocytes 1.67 Absolute Monocytes 1.04 H Absolute Eosinophils 0.11 Absolute Basophils 0.04 ESR 24 H Sodium 135 L Potassium 3.3 L Chloride 97 L Carbon Dioxide 30.5 Anion Gap 7.5 BUN 30 H Creatinine 0.96 Estimated GFR/1.73 m2 >= 60.00 Glucose 281 H Calcium 10.9 H Magnesium 2.0 Total Bilirubin 0.6 AST 15 ALT 33 Alkaline Phosphatase 114 C-Reactive Protein 12.48 H Total Protein 7.8 Albumin 3.5 Urine Color Yellow Urine Clarity Clear Urine pH 5.5 Ur Specific [place] 1.020 Urine Protein 100 H Urine Ketones 15 H Urine Blood Small H Urine Nitrite Negative Urine Bilirubin Negative Urine Urobilinogen 0.2 Ur Leukocyte Esterase Negative Urine RBC Negative Urine WBC Negative Ur Epithelial Cells Negative Urine Crystals Negative Urine Bacteria Negative Urine Casts Negative Urine Mucus Negative Urine Other Negative Ur Culture Indicated? No Urine Glucose 500 H Last Vital Signs Temp 37.1 C 02/14/20 15:30 Pulse 105 H 02/14/20 15:30 Resp 16 02/14/20 15:30 BP 183/78 H 02/14/20 15:30 Pulse Ox 100 02/14/20 15:30 COVID-19 Screening Have you, or household traveled for leisure in last 14 days?: No Had IN PERSON contact w/suspected or confirmed C-19 person: No
[2020-02-14] MEDS: Acetaminophen 500 MG TAB 1000 MG PO (17:49)
[2020-02-14] MEDS: levETIRAcetam 500 MG TAB 1000 MG PO (20:55)
[2020-02-14] MEDS: PIPERACILLIN/TAZO 3.375 GM in Normal Saline 50 ML IVPB (20:58)
[2020-02-14] MEDS: Insulin Glargine 300 UNITS/3 ML PEN 85 UNITS SC (21:00)
[2020-02-15] VITALS (8 sets, daily range): BP systolic 129–172; BP diastolic 69–85; PULSE 78–88; RESP 17–18; TEMP 36.2–38.7; O2SAT 92–96
[2020-02-15] MEDS: Cilostazol 100 MG TAB PO (00:37)
[2020-02-15] MEDS: Zolpidem 5 MG TAB PO ×2 (00:44→21:47)
[2020-02-15] MEDS: guanFACINE 1 MG TAB PO ×2 (00:55→21:47)
[2020-02-15] MEDS: PIPERACILLIN/TAZO 3.375 GM in Normal Saline 50 ML IVPB ×4 (04:14→21:50)
[2020-02-15] MEDS: Normal Saline 1,000 ML 125 ML IV ×2 (06:26→17:19)
[2020-02-15] MEDS: Normal Saline Flush 10 ML SYR IVP (06:29)
[2020-02-15] MEDS: Insulin Glargine 300 UNITS/3 ML PEN 85 UNITS SC ×2 (06:35→18:49)
--- NOTE | 2020-02-15 07:16 | HPE_ITS ---
Date of service: 02/15/20 Time of Service: 07:17 History of Present Illness History of Present Illness Chief Complaint: Gangrene, osteomyelitis, cellulitis left second toe. Narrative: 59-year-old male whose left foot was stepped on a horse weighing approximately 1200 pounds on December 27. Was initially treated with 2 weeks of oral Keflex showed signs of initial improvement. Unfortunately, there has been increasing redness, cellulitis extending to the midfoot, gangrenous change at the tip of the second toe with radiographic evidence of osteomyelitis affecting the distal phalanx requiring hospital admission through the ER yesterday. [facility] Medical History Asthma (06/24/12) Cerebrovascular accident (CVA) due to thrombosis of middle cerebral artery (09/12/15) Essential hypertension (12/10/12) Hypokalemia Hypomagnesemia Morbid obesity due to excess calories (05/26/15) Peripheral vascular disease (03/28/16) Status post blilateral femoral artery stents. 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 Father Diabetes Essential hypertension Heart disease Stroke Sister No problems noted. Sister No problems noted. Sister No problems noted. Sister No problems noted. Sister No problems noted. Brother Essential hypertension Brother No problems noted. Brother No problems noted. Brother No problems noted. Brother No problems noted. Grandfather No problems noted. Grandfather Diabetes Neoplasm Grandmother Heart disease Grandmother No problems noted. Daughter No problems noted. Daughter No problems noted. Daughter No problems noted. Social History Smoking/Tobacco Use Status: Never Smoking risk assessment performed?: Yes Alcohol Intake: never Drug use: Never Substance use type: does not use Do you feel safe in your relationship?: Yes Meds Home Medications and Allergies Home Medications Medication Instructions Recorded Confirmed Type FreeStyle Test #360 strip 03/14/16 02/14/20 History cilostazol 100 mg PO BID #180 tab-cap 11/14/16 02/14/20 Rx magnesium oxide 800 mg PO DAILY #30 tab 01/01/17 02/14/20 Rx blood-glucose meter [FreeStyle #1 kit 02/27/17 02/14/20 Rx Lite Meter] levalbuterol tartrate [Xopenex HFA] 2 puff INHALATION Q6H PRN #3 02/27/17 02/14/20 Rx inhaler pen needle, diabetic 32 gauge x #200 ea 02/03/18 02/14/20 Rx /32 flash glucose scanning reader #1 each 01/01/19 02/14/20 Rx flash glucose sensor #1 each 01/01/19 02/14/20 Rx losartan 100 mg tablet 100 mg PO DAILY #90 tab-cap 03/03/19 02/14/20 Rx aspirin 325 mg PO DAILY 03/05/19 02/14/20 History chlorthalidone 25 mg tablet 25 mg PO DAILY #90 tab-cap 06/14/19 02/14/20 Rx nifedipine 30 mg tablet,extended 90 mg PO DAILY #180 tab-cap 06/14/19 02/14/20 Rx release 24 hr clopidogrel 75 mg tablet 75 mg PO DAILY #90 tab 07/12/19 02/14/20 Rx levetiracetam 500 mg tablet 1,000 mg PO BID #180 tab 07/23/19 02/14/20 Rx empagliflozin 10 mg tablet 10 mg PO DAILY #90 tab 11/05/19 02/14/20 Rx guanfacine 1 mg tablet 1 mg PO HS #90 tab-cap 11/05/19 02/14/20 Rx atorvastatin 40 mg tablet 40 mg PO DAILY #90 tab-cap 12/12/19 02/14/20 Rx insulin lispro 100 unit/mL 5 - 20 unit SUBCUT TID ml 01/12/20 02/14/20 History subcutaneous pen fluticasone propionate 110 110 mcg INHALATION BID PRN inhaler 01/17/20 02/14/20 History mcg/actuation HFA aerosol inhaler insulin glargine 100 unit/mL (3 85 unit SUBCUT Q12H ml 01/17/20 02/14/20 History mL) subcutaneous pen Allergies Allergy/AdvReac Type Severity Reaction Status Date / Time metformin AdvReac Intermediate Diarrhea Verified 02/14/20 15:35 Exam Narrative Exam Narrative: Jose Guadalupe is resting comfortably in bed. He is awake, alert and appropriately concerned. Indicates he has had a history of seizures but his last episode was 2 to 3 years ago. The started following his CVA. Peripheral pulses are diminished at the ankle but his feet are warm to the touch. There is no peripheral edema. He has ample pedal hair extending to his ankles bilaterally, and hair noted on the digits. Calves are soft to palpation no findings of DVT.. Strong popliteal artery is palpable on the right knee less so on the left. He has had stenting performed of his femorals at [facility] approximately 2 to 3 years ago. He states that he has no difficulty walking for an extended period of time. No cramps no tightness of his legs. Muscle groups are 5 out of 5 bilaterally Skeletal exam reveals a grossly edematous left second toe with erythema extending to the midfoot dorsally.. Black gangrenous changes are appreciated af fecting the tip of the toe extending to the distal interphalangeal joint. Serous drainage is noted coming from the lateral side of the toe towards the webspace.. The remaining skeletal exam was otherwise grossly benign at this time. Neurologically he appears to be grossly intact but I suspect there is some low- grade diabetic neuropathy present. Toes were downgoing. Radiographs obtained yesterday reveal bone destruction occurring at the distal phalanx of the second toe consistent with osteomyelitis. Currently on IV Zosyn every 6 hours, labs were reviewed, microbiology Gram stain gram-positive cocci, sensitivities to follow. Impressions: Crush injury left second toe resulting in gangrenous change underlying osteomyelitis and a poorly controlled diabetic with PVD Plan: Lose you brought to the OR for an open amputation of the left second toe. He fully understands the permanency of the procedure. He understands that revisional procedures with more proximal loss of tissue may be required based on how he heals postoperatively. All questions have been answered. No promises made to final outcome of surgery. Informed consent has been obtained. Results Labs Result diagrams: 02/14/20 16:00 02/14/20 16:00 Labs: Laboratory Results - last 24 hr 02/14/20 02/14/20 02/14/20 16:00 16:00 16:35 WBC 13.29 H RBC 6.00 H Hgb 16.2 Hct 48.3 MCV 80.5 MCH 27.0 MCHC 33.5 RDW 13.5 Plt Count 243 MPV 10.1 Immature Gran % 0.3 Neutrophils % 78.2 Lymphocytes % 12.6 Monocytes % 7.8 Eosinophils % 0.8 Basophils % 0.3 Nucleated RBC % 0 Absolute Neutrophils 10.39 H Absolute Lymphocytes 1.67 Absolute Monocytes 1.04 H Absolute Eosinophils 0.11 Absolute Basophils 0.04 ESR 24 H Sodium 135 L Potassium 3.3 L Chloride 97 L Carbon Dioxide 30.5 Anion Gap 7.5 BUN 30 H Creatinine 0.96 Estimated GFR/1.73 m2 >= 60.00 Glucose 281 H Calcium 10.9 H Magnesium 2.0 Total Bilirubin 0.6 AST 15 ALT 33 Alkaline Phosphatase 114 C-Reactive Protein 12.48 H Total Protein 7.8 Albumin 3.5 Urine Color Yellow Urine Clarity Clear Urine pH 5.5 Ur Specific [place] 1.020 Urine Protein 100 H Urine Ketones 15 H Urine Blood Small H Urine Nitrite Negative Urine Bilirubin Negative Urine Urobilinogen 0.2 Ur Leukocyte Esterase Negative Urine RBC Negative Urine WBC Negative Ur Epithelial Cells Negative Urine Crystals Negative Urine Bacteria Negative Urine Casts Negative Urine Mucus Negative Urine Other Negative Ur Culture Indicated? No Urine Glucose 500 H Last Vital Signs Temp 36.7 C 02/14/20 23:34 Pulse 94 H 02/14/20 23:34 Resp 18 02/14/20 23:34 BP 144/74 H 02/14/20 23:34 Pulse Ox 96 02/14/20 23:34 COVID-19 Screening Have you, or household traveled for leisure in last 14 days?: No Had IN PERSON contact w/suspected or confirmed C-19 person: No
--- NOTE | 2020-02-15 08:14 | AMP_PTH ---
PATIENT: Jose Guadalupe Landeros LOC: U#:[id number] AGE/SX: 59/M ROOM: RE02/14/[address]: Ahmet Azul : 1960 BED: A DIS: 02/18/2020 SPEC #: [id number] RECD: 02/15/20 12:43 STATUS: JOHANNA REQ #: [id number] CHRISTOPH: 02/15/20 08:[address]: Ahmet Azul DEPT: Surgical Specimen RECD BY: Mandie Rocha ENTERED: 02/15/20 12:44 SP TYPE: Amputation OTHR DR: Reji Coffman MD Tissues: 1 - AMPUTATION FINGERS/TOES(NOT TRAUMA) Procedures: GROSS AND MICRO LEVEL 4 DECALCIFICATION Comments: [id number]
[2020-02-15 08:26] LABS: COVID-19 RT-PCR UVMMC Result Negative (Negative)
--- NOTE | 2020-02-15 08:30 | W.PM.OP ---
Date of service: 02/15/20 Time of Service: 08:30 Operative Note Operative Note DATE OF PROCEDURE: 02/15/20 PRE-OP DIAGNOSIS: Gangrene, osteomyelitis, cellulitis left second toe PROCEDURE: Debridement left second toe to the proximal phalanx SURGEON: Waqas Flores ANESTHESIA: MAC ESTIMATED BLOOD LOSS: 3 PATHOLOGY: other TOURNIQUET TIME: 0 COMPLICATIONS: None Patient was transported to: floor Patient's condition: stable Indications: 59-year-old, poorly controlled diabetic, who sustained a crush injury to the left second toe in early December subsequently developing gangrene with signs of osteomyelitis affecting the left second toe now with ascending cellulitis. He is being brought to the OR for debridement of the left second toe. Procedure Description: Jose Guadalupe was brought to the operative suite, placed in the supine position with the left foot was prepped and draped in the usual sterile podiatric fashion. Left second toe has gangrenous change from the distal interphalangeal joint all the way to the tip of the toe extending from dorsal to plantar. A dorsal skin incision was made just proximal to the area of gangrene carried down medially and laterally and a plantar incision likewise placed so as to afford flaps. Upon opening the skin purulent material was appreciated within the soft tissue. The extensor tendon was incised dorsally at the PIPJ with a #15 scalpel. This incision was then carried medially and laterally, severing the flexor tendon at the same level and releasing the joint capsule plantarly at the PIPJ level. The gangrenous portion of the second toe was removed and sent to pathology. Cultures were obtained at this level for aerobic and anaerobic evaluation. More proximal debridement was then performed removing the head of the proximal phalanx coming down to about the surgical neck. This level appeared healthier without rodolfo purulence. Copious irrigation was performed. Additional debridement of soft tissue was performed both dorsal and plantar removing anything that looked nonviable. Decided to close the central portion of the toe with a single near far far near stitch of 3-0 nylon leaving the medial lateral edges are open to allow for drainage. Wound was dressed with Xeroform fluffs Kerlex rolls. Left the OR with vital signs stable, vascular status intact. Estimated blood loss was under 3 cc. He will remain in-house for pain control, IV antibiotics. Sharp and sponge counts were correct.
[2020-02-15] MEDS: Bupivacaine 0.5% Pres-Free 30 ML VIAL (08:44)
[2020-02-15] MEDS: Lidocaine 1% Multi-Dose 50 ML VIAL (08:45)
[2020-02-15] MEDS: Insulin Aspart 300 UNITS/3 ML PEN SC ×3 (08:59→17:19)
[2020-02-15] MEDS: NIFEdipine-CR 30 MG TABCR 90 MG PO (09:00)
[2020-02-15] MEDS: Magnesium Oxide 400 MG TAB 800 MG PO (09:00)
[2020-02-15] MEDS: Clopidogrel 75 MG TAB PO (09:00)
[2020-02-15] MEDS: Atorvastatin 40 MG TAB PO (09:01)
[2020-02-15] MEDS: levETIRAcetam 500 MG TAB 1000 MG PO ×2 (09:01→20:13)
[2020-02-15] MEDS: Chlorthalidone 25 MG TAB PO (09:01)
[2020-02-15] MEDS: Losartan 50 MG TAB 100 MG PO (09:01)
[2020-02-15] MEDS: Aspirin 325 MG TAB PO (09:01)
[2020-02-15 11:09] LABS: Abs Immature Grans 0.05 10^3/uL (0.0-0.06); Absolute Basophil Count 0.03 10^3/uL (0.0-0.2); Absolute Eosinophil Count 0.14 10^3/uL (0.0-0.7); Absolute Lymphocyte Count 1.84 10^3/uL (1.2-3.4); Absolute Monocyte Count 0.97 10^3/uL (0.1-0.8); Absolute Neutrophil Count 8.26 10^3/uL (1.2-6.7); Basophils % 0.3; Eosinophils % 1.2; HGB 12.7 g/dL (13.5-17.5); Immature Grans % 0.4; Lymphocytes % 16.3; MCH 26.8 pg (27.0-33.0); MCHC 33.4 % (32.0-36.0); MCV 80.3 fL (80-95); Monocytes % 8.6; Neutrophils % 73.2; Nucleated RBC 0 %; Platelet Count 207 10^3/uL (130-400); RBC 4.73 10^6/uL (4.36-5.78); RDW 13.3 % (11.8-14.1); WBC 11.29 10^3/uL (4.4-10.8)
[2020-02-15] MEDS: VANCOMYCIN/WATER (PEG) 2 GM/400 ML BAG IV (11:13)
[2020-02-15 11:17] LABS: Anion Gap 8.1 mmol/L (3-11); BUN 19 mg/dL (7-18); CO2 28.9 mmol/L (21.0-32.0); Calcium 9.4 mg/dL (8.5-10.1); Chloride 102 mmol/L (98-107); Glucose 227 mg/dL (74-106); Magnesium 1.9 mg/dL (1.8-2.4); Sodium 139 mmol/L (136-145)
[2020-02-15 11:22] LABS: Potassium 2.9 mmol/L (3.5-5.1)
--- NOTE | 2020-02-15 12:20 | PGE_ITS ---
Date of Service Date of service: 02/15/20 Time of Service: : Assessment and Plan Assessment and plan (1) Osteomyelitis: Status: Acute Assessment and plan: Osteo of toe in diabetic with PVD. s/p amputation of the distal phalanx this morning. podiatry following. day 2 vancomycin added zosyn today routine postoperative care (2) Hypokalemia: Status: Acute Assessment and plan: replete and follow mag level 1.9 (3) Cerebrovascular accident (CVA) due to thrombosis of middle cerebral artery: Status: Chronic Assessment and plan: stable, continue asa, plavix and statin (4) Type II diabetes mellitus, uncontrolled: Status: Chronic Assessment and plan: A1C 9.4 in oct 2019 blood sugar 164-231 continue diabetic diet, sliding scale coverage and home medication diabetic education Qualifiers: Glycemic state: with hyperglycemia Qualified Code(s): E11.65 - Type 2 diabetes mellitus with hyperglycemia (5) DVT prophylaxis: Status: Acute Assessment and plan: enoxaparin daily, will check with surgery if ok to start tomorrow (6) Discharge planning issues: Status: Acute Assessment and plan: home when medically stable. case management following. discussed with DR Thomas Subjective Subjective Patient reports: no new complaints Exam Narrative Exam Narrative: GEN: awake, alert, oriented 3. pink warm dry and well perfused HEAD: Normocephalic, atraumatic ENT: Mucous membranes moist, oropharynx unremarkable, External ear exam unremarkable EYES: normal appearance, EOMI NECK: Full ROM, supple CHEST/RESP: respirations even and unlabored, clear to auscultation bilateral, no wheeze/rhonchi/rales CARDIOVASCULAR: RRR, no murmur ABDOMEN: Soft, non-tender, no mass. +Bowel sounds EXT: Full ROM, L foot post operative bulky dressing dry and intact with no drainage. no erythema proximally Neuro: Grossly normal neurological exam, conversant, interactive. Psych: normal mood and affect Objective Last Vital Signs Temp 36.3 C L 02/15/20 11:43 Pulse 80 02/15/20 11:43 Resp 18 02/15/20 11:43 BP 159/72 H 02/15/20 11:43 Pulse Ox 93 02/15/20 11:43 Laboratory Results - last 24 hr 02/14/20 02/14/20 02/14/20 16:00 16:00 16:35 WBC 13.29 H RBC 6.00 H Hgb 16.2 Hct 48.3 MCV 80.5 MCH 27.0 MCHC 33.5 RDW 13.5 Plt Count 243 MPV 10.1 Immature Gran % 0.3 Neutrophils % 78.2 Lymphocytes % 12.6 Monocytes % 7.8 Eosinophils % 0.8 Basophils % 0.3 Nucleated RBC % 0 Absolute Neutrophils 10.39 H Absolute Lymphocytes 1.67 Absolute Monocytes 1.04 H Absolute Eosinophils 0.11 Absolute Basophils 0.04 ESR 24 H Sodium 135 L Potassium 3.3 L Chloride 97 L Carbon Dioxide 30.5 Anion Gap 7.5 BUN 30 H Creatinine 0.96 Estimated GFR/1.73 m2 >= 60.00 Glucose 281 H Calcium 10.9 H Magnesium 2.0 Total Bilirubin 0.6 AST 15 ALT 33 Alkaline Phosphatase 114 C-Reactive Protein 12.48 H Total Protein 7.8 Albumin 3.5 Urine Color Yellow Urine Clarity Clear Urine pH 5.5 Ur Specific [place] 1.020 Urine Protein 100 H Urine Ketones 15 H Urine Blood Small H Urine Nitrite Negative Urine Bilirubin Negative Urine Urobilinogen 0.2 Ur Leukocyte Esterase Negative Urine RBC Negative Urine WBC Negative Ur Epithelial Cells Negative Urine Crystals Negative Urine Bacteria Negative Urine Casts Negative Urine Mucus Negative Urine Other Negative Ur Culture Indicated? No Urine Glucose 500 H SARS-CoV-2 (PCR) Nasopharyn COVID-19 PCR Ref Test Perform Site 02/14/20 02/15/20 02/15/20 17:40 10:55 10:55 WBC 11.29 H RBC 4.73 Hgb 12.7 L D Hct 38.0 L D MCV 80.3 MCH 26.8 L MCHC 33.4 RDW 13.3 Plt Count 207 MPV 10.0 Immature Gran % 0.4 Neutrophils % 73.2 Lymphocytes % 16.3 Monocytes % 8.6 Eosinophils % 1.2 Basophils % 0.3 Nucleated RBC % 0 Absolute Neutrophils 8.26 H Absolute Lymphocytes 1.84 Absolute Monocytes 0.97 H Absolute Eosinophils 0.14 Absolute Basophils 0.03 ESR Sodium 139 Potassium 2.9 L* Chloride 102 Carbon Dioxide 28.9 Anion Gap 8.1 BUN 19 H D Creatinine 0.70 Estimated GFR/1.73 m2 >= 60.00 Glucose 227 H Calcium 9.4 Magnesium 1.9 Total Bilirubin AST ALT Alkaline Phosphatase C-Reactive Protein Total Protein Albumin Urine Color Urine Clarity Urine pH Ur Specific [place] Urine Protein Urine Ketones Urine Blood Urine Nitrite Urine Bilirubin Urine Urobilinogen Ur Leukocyte Esterase Urine RBC Urine WBC Ur Epithelial Cells Urine Crystals Urine Bacteria Urine Casts Urine Mucus Urine Other Ur Culture Indicated? Urine Glucose SARS-CoV-2 (PCR) Negative Nasopharyn COVID-19 PCR Not Applicable Ref Test Perform Site [facility] lab
[2020-02-15] MEDS: POTASSIUM CHLORIDE 10 MEQ/100 ML BAG 100 MEQ IVPB (13:16)
[2020-02-15] MEDS: Potassium Chloride 20 MEQ TABCR 40 MEQ PO (13:16)
--- NOTE | 2020-02-15 14:35 | PDOC.CMIN ---
- If Service Date Differs Date of service: 02/15/20 Time of Service: 14:35 Care Management Initial Assess REASON FOR HOSPITALIZATION:: Osteomyelitis of Toe PAST MEDICAL HISTORY/PAST SURGICAL HISTORY:: Medical History. Asthma (06/24/12). Cerebrovascular accident (CVA) due to thrombosis of middle cerebral artery (09/12/15). Essential hypertension (12/10/12). Hypokalemia. Hypomagnesemia. Morbid obesity due to excess calories (05/26/15). Peripheral vascular disease (03/28/16). Status post blilateral femoral artery stents. Spell of loss of consciousness. Type II diabetes mellitus, uncontrolled. 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 He is independent at baseline. CURRENT FUNCTIONAL STATUS:: Jose Guadalupe was sitting up in his bed when CM met with him. He was pleasant and engaged in conversation. He stated that he was helping out a friend with their horses, and a horse stepped on his foot, causing the injury that resulted in amputation of his toe during this admission. He had just arrived back in his room from the OR, and stated that he was feeling ok, but he hasn't looked at his foot yet (it was heavily bandaged). He stated that he is hoping to return home before [place]. CM reported that it will depend on his abx course, which has not been identified. CM will continue to follow. ADVANCE DIRECTIVES:: None on file. CM will offer [place] AD forms. Has patient been provided with info about the portal/API?: Yes Did the patient sign up for the portal?: Yes (Previously signed up) CODE STATUS:: Full Code INSURANCE COVERAGE / FINANCIAL ISSUES:: Health Plans CURRENT HOME/COMMUNITY SERVICES/EQUIPMENT:: No current services or equipment. PRIMARY CARE PHYSICIAN:: Reji Coffman POTENTIAL DISCHARGE NEEDS:: Evaluations for further needs, possible home infusion vs infusion room for IV abx, follow up appointments. PATIENT/FAMILY EDUCATION NEEDS:: Review discharge instructions regarding activity levels and medications, discussion of self care needs including ask me three. ANTICIPATED BARRIERS TO DISCHARGE:: None identified. TRANSPORTATION:: Via private vehicle by family. PLAN:: Anticipate Jose Guadalupe will return home when medically cleared. He will likely need a course of abx treatment, which has yet to be determined. CM will go over options if ocean transportation intermediary IV abx will be necessary. He will follow up with his PCP and discharge plan of care. His will drive him home when ready. CM will continue to follow.
--- NOTE | 2020-02-15 15:27 | CHAPLAIN ---
Jose Guadalupe was sitting up in bed when I stopped in and he easily engaged in conversation. He had surgery early this morning to remove part of his right big toe, and second toe, he said. He's not feeling any pain and is waiting to hear what his antibiotic course will be and if he'll need to stay in the hospital longer. He and his (Juliette, who works in Medical Records at [employer]) have plans for a special dinner with family on . Jose Guadalupe shared some personal history. He seems to be comfortable being here. I will continue to visit.
--- NOTE | 2020-02-15 15:53 | PHACLINREV_ITS ---
Pharmacy Admission Review - Admission Clinical Review (Last Updated 02/15/20 @ 12:27 by Tayler Colon NP) Discharge planning issues (Acute) DVT prophylaxis (Acute) Hypokalemia (Acute) Osteomyelitis (Acute) metformin Adverse Reaction (Intermediate, Verified 02/14/20 15:35) Diarrhea Height 5 ft 10 in Weight 117.934 kg - Renal Dosing Renal Dosing: BUN 19 mg/dL (7-18) H D 02/15/20 10:55 Creatinine 0.70 mg/dL (0.70-1.30) 02/15/20 10:55 Medications needing adjustments: Reviewed (CRCL 100ML/MIN) - Anticoagulation Anticoagulation: Hgb 12.7 g/dL (13.5-17.5) L D 02/15/20 10:55 Hct 38.0 % (40.0-50.0) L D 02/15/20 10:55 Plt Count 207 10^3/uL (130-400) 02/15/20 10:55 Creatinine 0.70 mg/dL (0.70-1.30) 02/15/20 10:55 DVT Prohphylaxis: Reviewed Medications: Enoxaparin Therapeutic Anticoagulation: N/A - Relevant Labs ESR 24 mm/hr (1-20) H 02/14/20 16:00 Sodium 139 mmol/L (136-145) 02/15/20 10:55 Potassium 2.9 mmol/L (3.5-5.1) L* 02/15/20 10:55 Chloride 102 mmol/L (98-107) 02/15/20 10:55 Magnesium 1.9 mg/dL (1.8-2.4) 02/15/20 10:55 C-Reactive Protein 12.48 mg/dL (0.0-0.3) H 02/14/20 16:00 Electrolytes, C-Reactive P, ESR: Reviewed (KCL ordered Iv and PO x 1) - DM Control DM Control: Glucose 227 mg/dL (74-106) H 02/15/20 10:55 Finger Stick Blood Glucose 231 Finger Stick Blood Glucose 231 Finger Stick Blood Glucose 164 Finger Stick Blood Glucose 164 Insulin Dosing: Reviewed (insulin aspart SS and glargine) - BP Control BP Control: Blood Pressure 129/69 Blood Pressure 159/72 Blood Pressure 160/78 Blood Pressure 169/85 Blood Pressure 172/80 If elevated: N/A - Qtc Review If Elevated: N/A - IV to PO Switch IV Medications: Reviewed (Iv abx for osteomyelitis) - Home Meds Home Med List reviewed: Intervened (home med list in [employer] showed cilostazol which pt is not currently taking. nifedipine daily dose split into 2 times as per RX last filled with provider approval) - Current meds Current Medication Order Review: Reviewed Antibiotic Activity - Antibiotic Information Antibiotic Review Info: pip/tazo . vancomycin per pharmacy . dosed using kinetics. trough ordered for 02/15@1500
[2020-02-15] MEDS: NIFEdipine-CR 30 MG TABCR 60 MG PO (20:15)
[2020-02-15] MEDS: Acetaminophen 325 MG TAB 650 MG PO (20:15)
[2020-02-15] MEDS: VANCOMYCIN/WATER (PEG) 1.5 GM/300 ML BAG IVPB (20:16)
[2020-02-16] MEDS: PIPERACILLIN/TAZO 3.375 GM in Normal Saline 50 ML IVPB ×4 (03:37→21:36)
[2020-02-16] MEDS: Normal Saline 1,000 ML 125 ML IV ×2 (04:37→19:01)
[2020-02-16 04:47] VITALS: BP 143/66; PULSE 77; RESP 20; TEMP 37.7; O2SAT 96
[2020-02-16] MEDS: VANCOMYCIN/WATER (PEG) 1.5 GM/300 ML BAG IVPB ×3 (05:24→23:39)
[2020-02-16] MEDS: Insulin Glargine 300 UNITS/3 ML PEN 85 UNITS SC ×2 (05:30→18:05)
[2020-02-16 07:22] LABS: Abs Immature Grans 0.03 10^3/uL (0.0-0.06); Absolute Basophil Count 0.06 10^3/uL (0.0-0.2); Absolute Eosinophil Count 0.26 10^3/uL (0.0-0.7); Absolute Lymphocyte Count 2.03 10^3/uL (1.2-3.4); Absolute Monocyte Count 0.91 10^3/uL (0.1-0.8); Absolute Neutrophil Count 8.63 10^3/uL (1.2-6.7); Basophils % 0.5; Eosinophils % 2.2; HCT 36.9 % (40.0-50.0); HGB 12.3 g/dL (13.5-17.5); Immature Grans % 0.3; MCHC 33.3 % (32.0-36.0); MCV 80.9 fL (80-95); MPV 10.1 fL (8.0-11.0); Monocytes % 7.6; Neutrophils % 72.4; Nucleated RBC 0 %; Platelet Count 230 10^3/uL (130-400); RBC 4.56 10^6/uL (4.36-5.78); RDW 13.5 % (11.8-14.1); RDW-SD 39.8 fL; WBC 11.92 10^3/uL (4.4-10.8)
--- NOTE | 2020-02-16 07:28 | PGE_ITS ---
Date of Service Date of service: 02/16/20 Time of Service: 07:28 Subjective Subjective Patient reports: no new complaints Interval history since last seen: 24 hours status post debridement left second toe. Jose Guadalupe is seen in his room resting comfortably in his bed. He indicates everything seems to be going well, he has had no pain at all. Exam Narrative Exam Narrative: Dressings appear clean and dry on the left foot. The dressings are removed, minimal discharge seen on the dressings. The erythema that was appreciated on the dorsum of the foot is resolving nicely. The wound edges at the distal aspect second toe appear viable. A single suture remains intact in the central portion of the wound bringing the skin edges together. Manipulation of the distal foot milking it towards the second toe does express some serous drainage mixed with what looks like pus. Calf is soft to palpation. Intraoperative cultures showed gram-positive and negative organisms identifications and sensitivities pending. Morning labs are all pending. Impressions: 24 hours status post debridement left second toe to bone including proximal phalangeal head for osteomyelitis infection gangrenous changes Plan: Jose Guadalupe will likely require 6 weeks of IV antibiotics. We will continue with the vancomycin and Zosyn pending microbiologic sensitivities. Recommend a PICC line for long-term antibiotic utilization. Blood cultures are negative at 24 hours. The open wound was painted with povidone iodine, dressed with Xeroform gauze, Curlex, stockinette and Pillo wrap. We will increase his activities full weightbearing as long as he is wearing the surgical shoe, but I do encourage him to keep his leg elevated when not actively ambulating. Objective Last Vital Signs Temp 36.6 C 02/16/20 07:27 Pulse 68 02/16/20 07:27 Resp 18 02/16/20 07:27 BP 115/58 L 02/16/20 07:27 Pulse Ox 96 02/16/20 07:27 Laboratory Results - last 24 hr 02/14/20 02/15/20 02/15/20 17:40 10:55 10:55 WBC 11.29 H RBC 4.73 Hgb 12.7 L D Hct 38.0 L D MCV 80.3 MCH 26.8 L MCHC 33.4 RDW 13.3 Plt Count 207 MPV 10.0 Immature Gran % 0.4 Neutrophils % 73.2 Lymphocytes % 16.3 Monocytes % 8.6 Eosinophils % 1.2 Basophils % 0.3 Nucleated RBC % 0 Absolute Neutrophils 8.26 H Absolute Lymphocytes 1.84 Absolute Monocytes 0.97 H Absolute Eosinophils 0.14 Absolute Basophils 0.03 Sodium 139 Potassium 2.9 L* Chloride 102 Carbon Dioxide 28.9 Anion Gap 8.1 BUN 19 H D Creatinine 0.70 Estimated GFR/1.73 m2 >= 60.00 Glucose 227 H Calcium 9.4 Magnesium 1.9 SARS-CoV-2 (PCR) Negative Nasopharyn COVID-19 PCR Not Applicable Ref Test Perform Site [facility] lab
[2020-02-16 07:36] LABS: Anion Gap 5.4 mmol/L (3-11); BUN 14 mg/dL (7-18); C-Reactive Protein 12.08 mg/dL (0.0-0.3); CO2 29.6 mmol/L (21.0-32.0); CREATININE 0.72 mg/dL (0.70-1.30); Calcium 9.2 mg/dL (8.5-10.1); Chloride 104 mmol/L (98-107); Glucose 114 mg/dL (74-106); Magnesium 1.7 mg/dL (1.8-2.4); Potassium 3.4 mmol/L (3.5-5.1); Sodium 139 mmol/L (136-145)
[2020-02-16 07:40] VITALS: BP 157/71; PULSE 72; RESP 17; TEMP 36.2; O2SAT 95
[2020-02-16] MEDS: Enoxaparin 40 MG/0.4 ML SYR SC (07:55)
[2020-02-16] MEDS: Aspirin 325 MG TAB PO (07:56)
[2020-02-16] MEDS: Clopidogrel 75 MG TAB PO (07:56)
[2020-02-16] MEDS: Chlorthalidone 25 MG TAB PO (07:56)
[2020-02-16] MEDS: levETIRAcetam 500 MG TAB 1000 MG PO ×2 (07:56→19:58)
[2020-02-16] MEDS: Losartan 50 MG TAB 100 MG PO (07:56)
[2020-02-16] MEDS: NIFEdipine-CR 30 MG TABCR PO (07:56)
[2020-02-16] MEDS: Magnesium Oxide 400 MG TAB 800 MG PO (07:56)
[2020-02-16] MEDS: Atorvastatin 40 MG TAB PO (07:56)
[2020-02-16] MEDS: Normal Saline Flush 10 ML SYR IVP (07:57)
[2020-02-16] MEDS: Insulin Aspart 300 UNITS/3 ML PEN SC ×3 (07:57→17:12)
[2020-02-16] MEDS: Potassium Chloride 20 MEQ TABCR 40 MEQ PO (08:39)
[2020-02-16] MEDS: MAGNESIUM SULFATE 2 GM/50 ML BAG IVPB (08:39)
--- NOTE | 2020-02-16 09:07 | PGE_ITS ---
Date of Service Date of service: 02/16/20 Time of Service: 09:08 Assessment and Plan Assessment and plan (1) Osteomyelitis: Status: Acute Assessment and plan: Osteo of toe in diabetic with PVD. Post op day 1 s/p amputation of the distal phalanx. deep tissue wound culture pending. day 3 vancomycin added zosyn until cultures available, anticipate 6 weeks of IV antibiotics PICC line to be placed when blood cultures final negative continue routine postoperative care (2) Hypokalemia: Status: Acute Assessment and plan: replete and follow mag level 1.7, will replete both K and Mag (3) Cerebrovascular accident (CVA) due to thrombosis of middle cerebral artery: Status: Chronic Assessment and plan: stable, continue asa, plavix and statin (4) Type II diabetes mellitus, uncontrolled: Status: Chronic Assessment and plan: A1C 9.4 in oct 2019 blood sugar 164-231 continue diabetic diet, sliding scale coverage and home medication diabetic education Qualifiers: Glycemic state: with hyperglycemia Qualified Code(s): E11.65 - Type 2 diabetes mellitus with hyperglycemia (5) DVT prophylaxis: Status: Acute Assessment and plan: enoxaparin daily, OK'd with surgery (6) Discharge planning issues: Status: Acute Assessment and plan: home when medically stable. case management following. discussed with DR Thomas Subjective Subjective Patient reports: no new complaints, tolerating liquids well, tolerating a regular diet, voiding w/o difficulty, no bowel movement and afebrile; denies nausea Interval history since last seen: doing well postoperatively, no c/o. passing f latus, no BM yet, pain managed Exam Narrative Exam Narrative: GEN: awake, alert, oriented 3. pink warm dry and well perfused HEAD: Normocephalic, atraumatic ENT: Mucous membranes moist, oropharynx unremarkable, External ear exam unremarkable EYES: normal appearance, EOMI NECK: Full ROM, supple CHEST/RESP: respirations even and unlabored, clear to auscultation bilateral, no wheeze/rhonchi/rales CARDIOVASCULAR: RRR, no murmur ABDOMEN: Soft, non-tender, no mass. +Bowel sounds EXT: Full ROM, L foot post operative bulky dressing dry and intact with no drainage. no erythema proximally Neuro: Grossly normal neurological exam, conversant, interactive. Psych: normal mood and affect Objective Last Vital Signs Temp 36.2 C L 12/23/20 07:40 Pulse 72 02/16/20 07:40 Resp 17 02/16/20 07:40 BP 157/71 H 02/16/20 07:40 Pulse Ox 95 02/16/20 07:40 Laboratory Results - last 24 hr 02/15/20 02/15/20 02/16/20 10:55 10:55 06:38 WBC 11.29 H RBC 4.73 Hgb 12.7 L D Hct 38.0 L D MCV 80.3 MCH 26.8 L MCHC 33.4 RDW 13.3 Plt Count 207 MPV 10.0 Immature Gran % 0.4 Neutrophils % 73.2 Lymphocytes % 16.3 Monocytes % 8.6 Eosinophils % 1.2 Basophils % 0.3 Nucleated RBC % 0 Absolute Neutrophils 8.26 H Absolute Lymphocytes 1.84 Absolute Monocytes 0.97 H Absolute Eosinophils 0.14 Absolute Basophils 0.03 Sodium 139 139 Potassium 2.9 L* 3.4 L Chloride 102 104 Carbon Dioxide 28.9 29.6 Anion Gap 8.1 5.4 BUN 19 H D 14 Creatinine 0.70 0.72 Estimated GFR/1.73 m2 >= 60.00 >= 60.00 Glucose 227 H 114 H D Calcium 9.4 9.2 Magnesium 1.9 1.7 L C-Reactive Protein 12.08 H 02/16/20 06:38 WBC 11.92 H RBC 4.56 Hgb 12.3 L Hct 36.9 L MCV 80.9 MCH 27.0 MCHC 33.3 RDW 13.5 Plt Count 230 MPV 10.1 Immature Gran % 0.3 Neutrophils % 72.4 Lymphocytes % 17.0 Monocytes % 7.6 Eosinophils % 2.2 Basophils % 0.5 Nucleated RBC % 0 Absolute Neutrophils 8.63 H Absolute Lymphocytes 2.03 Absolute Monocytes 0.91 H Absolute Eosinophils 0.26 Absolute Basophils 0.06 Sodium Potassium Chloride Carbon Dioxide Anion Gap BUN Creatinine Estimated GFR/1.73 m2 Glucose Calcium Magnesium C-Reactive Protein
--- NOTE | 2020-02-16 12:15 | DM INPTCON_ITS ---
Date of service: 02/16/20 Time of Service: 12:15 Diabetes Inpatient Consult DESCRIPTION/ASSESSMENT: Jose Guadalupe is a 59 year old male admitted s/p debridement of 2nd left toe with osteomylitis. PMH: uncontrolled DM, HTN, PVD, CVA. Most recent A1C (11/19/19): 9.4% (down from 14% 09/12) indicating poorly controlled DM2. Home meds inlcude 85 u glargine q 12 hours, 5-20 u lispro at meals. BMI 37 indicates class 2 obesity. Currently using a libre14 day CGM. At high risk for complications related to poorly controlled DM. Met with Jose Guadalupe today who is interested in how to better manage his diabetes. Provided basic diabetes and nutrition information. INTERVENTION: Provided education on DM including Hyper/hypoglycemia s/s with action plan for each scenario. Definition and types of CHO with examples, CHO counting, DASH diet materials, DM meal planning and label reading literature. Provided a blood sugar and food record chart and materials to reiterate CHO counting techniques. Reviewed desirable BG levels with patient with food ch oices and portions for optimal outcomes. Provided contact information for this RD and encouraged to call with any f/u questions r/t to DM self management. CDM from kitchen has been helping to count CHO's and achieve intake of ~65g/CHO per meal period. PLAN: Outpatient diabetes education appointment scheduled for 02/23/20 at 1300 Time Spent in Nutritional Counseling and Treatment: 15 min
--- NOTE | 2020-02-16 13:23 | PDOC.CMPRO ---
- If Service Date Differs Date of service: 02/16/20 Time of Service: 13:23 Care Management Progress Note S/O: Jose Guadalupe was lying in bed when CM met with him today. He was pleasant and engaged in conversation. CM discussed the plan with Jose Guadalupe, that he may need [facility], although we are still waiting for sensitivities from blood cultures in order to identify the abx treatment plan. He may need multiple infusions daily, which may not be able to be accommodated at home. A Picc line will be placed once blood cultures are negative, per report. CM will continue to follow. A: Jose Guadalupe is a 59 year old male admitted to [facility] on 02/14/20 with osteomyelitis of toe. P: Still awaiting blood cultures to determine abx treatment plan. Anticipate Jose Guadalupe may have to remain at [facility] for the duration of his 6 week abx course. Jose Guadalupe will transition to SWB once this has been identified vs home with home infusion, if indicated. Once ready for discharge, Jose Guadalupe will transport via private vehicle driven by his . CM will continue to follow and support discharge planning considerations.
[2020-02-16 15:41] LABS: Vancomycin, Trough 10.2 ug/mL (10.0-20.0)
[2020-02-16 15:44] VITALS: BP 158/71; PULSE 73; RESP 18; TEMP 36.7; O2SAT 93
[2020-02-16] MEDS: Acetaminophen 325 MG TAB 650 MG PO (18:06)
[2020-02-16 19:00] VITALS: TEMP 38.2
[2020-02-16 19:57] VITALS: BP 151/93; PULSE 83; RESP 18; TEMP 37.5; O2SAT 96
[2020-02-16] MEDS: NIFEdipine-CR 30 MG TABCR 60 MG PO (19:58)
[2020-02-16] MEDS: Zolpidem 5 MG TAB PO (21:36)
[2020-02-16] MEDS: guanFACINE 1 MG TAB PO (21:36)
[2020-02-16 23:36] VITALS: BP 178/80; PULSE 80; RESP 17; TEMP 37; O2SAT 95
[2020-02-17] MEDS: PIPERACILLIN/TAZO 3.375 GM in Normal Saline 50 ML IVPB ×2 (04:36→10:20)
[2020-02-17] MEDS: Normal Saline 1,000 ML 125 ML IV ×3 (05:00→21:17)
[2020-02-17 06:38] VITALS: BP 164/72; PULSE 83; RESP 18; TEMP 36.8; O2SAT 96
[2020-02-17 07:00] LABS: Abs Immature Grans 0.04 10^3/uL (0.0-0.06); Absolute Basophil Count 0.05 10^3/uL (0.0-0.2); Absolute Eosinophil Count 0.31 10^3/uL (0.0-0.7); Absolute Lymphocyte Count 1.92 10^3/uL (1.2-3.4); Absolute Monocyte Count 0.94 10^3/uL (0.1-0.8); Basophils % 0.4; Eosinophils % 2.5; HCT 37.2 % (40.0-50.0); HGB 12.5 g/dL (13.5-17.5); Immature Grans % 0.3; Lymphocytes % 15.5; MCH 26.7 pg (27.0-33.0); MCHC 33.6 % (32.0-36.0); MCV 79.5 fL (80-95); MPV 10.2 fL (8.0-11.0); Monocytes % 7.6; Neutrophils % 73.7; Nucleated RBC 0 %; Platelet Count 266 10^3/uL (130-400); RBC 4.68 10^6/uL (4.36-5.78); RDW 13.3 % (11.8-14.1); RDW-SD 38.6 fL; WBC 12.37 10^3/uL (4.4-10.8)
[2020-02-17 07:12] LABS: Absolute Neutrophil Count 9.12 10^3/uL (1.2-6.7)
[2020-02-17 07:21] LABS: Anion Gap 6.3 mmol/L (3-11); BUN 12 mg/dL (7-18); C-Reactive Protein 11.05 mg/dL (0.0-0.3); CO2 27.7 mmol/L (21.0-32.0); CREATININE 0.64 mg/dL (0.70-1.30); Calcium 9.4 mg/dL (8.5-10.1); Chloride 103 mmol/L (98-107); Glucose 87 mg/dL (74-106); Magnesium 1.6 mg/dL (1.8-2.4); Potassium 3.3 mmol/L (3.5-5.1); Sodium 137 mmol/L (136-145)
[2020-02-17] MEDS: Enoxaparin 40 MG/0.4 ML SYR SC (08:19)
[2020-02-17] MEDS: VANCOMYCIN/WATER (PEG) 1.5 GM/300 ML BAG IVPB (08:19)
[2020-02-17] MEDS: Clopidogrel 75 MG TAB PO (08:19)
[2020-02-17] MEDS: levETIRAcetam 500 MG TAB 1000 MG PO ×2 (08:19→19:36)
[2020-02-17] MEDS: Atorvastatin 40 MG TAB PO (08:20)
[2020-02-17] MEDS: Losartan 50 MG TAB 100 MG PO (08:20)
[2020-02-17] MEDS: Magnesium Oxide 400 MG TAB 800 MG PO (08:20)
[2020-02-17] MEDS: Aspirin 325 MG TAB PO (08:20)
[2020-02-17] MEDS: NIFEdipine-CR 30 MG TABCR PO (08:20)
[2020-02-17] MEDS: Chlorthalidone 25 MG TAB PO (08:20)
[2020-02-17] MEDS: Potassium Chloride 20 MEQ TABCR 40 MEQ PO (08:21)
--- NOTE | 2020-02-17 09:15 | W.PM.PROGNOT ---
Date of Service Date of service: 02/17/20 Time of Service: 09:15 Assessment and Plan Assessment and plan (1) Osteomyelitis: Status: Acute Assessment and plan: Osteo of toe in diabetic with PVD. Post op day 2 s/p amputation of the distal phalanx. deep tissue wound culture growing E coli, sensitive to ceftriaxone anticipate 6 weeks of IV antibiotics PICC line to be placed when blood cultures final negative continue routine postoperative care (2) Hypokalemia: Status: Acute Assessment and plan: replete and follow mag level 1.7, will replete both K and Mag (3) Cerebrovascular accident (CVA) due to thrombosis of middle cerebral artery: Status: Chronic Assessment and plan: stable, continue asa, plavix and statin (4) Type II diabetes mellitus, uncontrolled: Status: Chronic Assessment and plan: A1C 9.4 in oct 2019 blood sugar 95-101 continue diabetic diet, sliding scale coverage and home medication diabetic education Qualifiers: Glycemic state: with hyperglycemia Qualified Code(s): E11.65 - Type 2 diabetes mellitus with hyperglycemia (5) DVT prophylaxis: Status: Acute Assessment and plan: enoxaparin daily, OK'd with surgery (6) Discharge planning issues: Status: Acute Assessment and plan: home when medically stable. case management following. discussed with DR Thomas Subjective Subjective Patient reports: no new complaints, tolerating liquids well, tolerating a regular diet and fever Interval history since last seen: max temp overnight 38.2 Exam Narrative Exam Narrative: GEN: awake, alert, oriented 3. pink warm dry and well perfused HEAD: Normocephalic, atraumatic ENT: Mucous membranes moist, oropharynx unremarkable, External ear exam unremarkable EYES: normal appearance, EOMI NECK: Full ROM, supple CHEST/RESP: respirations even and unlabored, clear to auscultation bilateral, no wheeze/rhonchi/rales CARDIOVASCULAR: RRR, no murmur ABDOMEN: Soft, non-tender, no mass. +Bowel sounds EXT: Full ROM, L foot post operative bulky dressing dry and intact with no drainage. no erythema proximally Neuro: Grossly normal neurological exam, conversant, interactive. Psych: normal mood and affect Objective Last Vital Signs Temp 36.8 C 02/17/20 06:38 Pulse 83 02/17/20 06:38 Resp 18 02/17/20 06:38 BP 164/72 H 02/17/20 06:38 Pulse Ox 96 02/17/20 06:38 Laboratory Results - last 24 hr 02/16/20 02/17/20 02/17/20 15:15 06:10 06:10 WBC 12.37 H RBC 4.68 Hgb 12.5 L Hct 37.2 L MCV 79.5 L MCH 26.7 L MCHC 33.6 RDW 13.3 Plt Count 266 MPV 10.2 Immature Gran % 0.3 Neutrophils % 73.7 Lymphocytes % 15.5 Monocytes % 7.6 Eosinophils % 2.5 Basophils % 0.4 Nucleated RBC % 0 Absolute Neutrophils 9.12 H Absolute Lymphocytes 1.92 Absolute Monocytes 0.94 H Absolute Eosinophils 0.31 Absolute Basophils 0.05 Sodium 137 Potassium 3.3 L Chloride 103 Carbon Dioxide 27.7 Anion Gap 6.3 BUN 12 Creatinine 0.64 L Estimated GFR/1.73 m2 >= 60.00 Glucose 87 Calcium 9.4 Magnesium 1.6 L C-Reactive Protein 11.05 H Vancomycin Trough 10.2
--- NOTE | 2020-02-17 11:03 | DSE_ITS ---
Date of service: 02/17/20 Time of Service: 12:36 DS: Diagnosis Discharge Diagnosis (1) Osteomyelitis: Status: Acute (2) Hypokalemia: Status: Acute (3) Cerebrovascular accident (CVA) due to thrombosis of middle cerebral artery: Status: Chronic (4) Type II diabetes mellitus, uncontrolled: Status: Chronic Discharge Plan Disposition Patient Disposition: HOME Condition: Stable Discharge Details Reason For Visit: OSTEOMYELITIS OF TOE Admit Date/Time: 02/14/20 17:47 Admit Provider: Ahmet Azul Attending Provider: Ahmet Azul [facility] Course: This is a 59 year old male with history of diabetes mellitus, A1C 9.4 in oct 2019, who had in injury to left foot, after a horse stepped on it. he developed redness to left 2nd toe, seen by Dr Flores who treated outpatient with keflex oupatient. He failed oral antibiotics as he experienced increased redness, cellulitis extending into the midfoot and gangrenous changes to tip of toe. Imaging showed evidence of osteomyelitis. He was admitted and underwent amputation of distal phalaynx. He was covered with IV vancomycin and zosyn while deep wound surgical cultures pending. He ultimatel grew E coli, only resistent of ampicillin. he was downstepped to ceftriaxone 2 gm IV and will require 6 weeks of IV antibiotics. A PICC line was placed. blood cultures remained negative. post operative course was unremarkable. he had no pain or post operative complications. He did have a max temp of 38.2 evening of post op day 1 but has been afebrile since. he is eating and drinking, bowels and bladder functioning. case management has been following and arrangements have been placed for outpatient infusion. patient is to be discharged on 02/18/20 after his ceftriaxone infusion. Dr Thomas will place discharge order when ready. Home Meds and New Rx's Prescriptions: New nifedipine 30 mg Tablet Extended Release 60 mg PO QPM Qty: 0 RF: 0 ceftriaxone in dextrose,iso-os 2 gram/50 mL Piggyback 2 g IVPB Q24H Qty: 0 RF: 0 Continued (DME) FreeStyle Adama 14 Day Sensor Kit See Rx Instructions .ROUTE .MEDSUPPLY Qty: 1 RF: 0 (DME) FreeStyle Adama 14 Day [place] Misc See Rx Instructions .ROUTE .MEDSUPPLY Qty: 1 RF: 4 Jardiance 10 mg tablet 10 mg PO DAILY Qty: 90 RF: 4 guanfacine 1 mg tablet 1 mg PO HS Qty: 90 RF: 3 Flovent HFA 110 mcg/actuation HFA aerosol inhaler 110 mcg Inhalation BID PRNRF: 0 Lantus Solostar U-100 Insulin 100 unit/mL (3 mL) insulin pen 85 unit subcut Q12H RF: 0 (DME) FreeStyle Test 1 EACH strip 1 ea Miscellaneous QID Qty: 360 RF: 5 levalbuterol tartrate [Xopenex HFA] 15 GM HFA aerosol inhaler 2 puff Inhalation Q6H PRN Qty: 3 RF: 4 (DME) blood-glucose meter [FreeStyle Lite Meter] 1 EACH kit 1 ea Miscellaneous DAILY Qty: 1 RF: 0 (DME) pen needle, diabetic [BD Ultra-Fine Helene Pen Needle] 32 gauge x 5/32 needle 1 ea Miscellaneous 5 times daily Qty: 200 RF: 5 losartan 100 mg tablet 100 mg PO DAILY Qty: 90 RF: 3 chlorthalidone 25 mg tablet 25 mg PO DAILY Qty: 90 RF: 4 clopidogrel [Plavix] 75 mg tablet 75 mg PO DAILY Qty: 90 RF: 4 levetiracetam [Keppra] 500 mg tablet 1,000 mg PO BID Qty: 180 RF: 4 atorvastatin [Lipitor] 40 mg tablet 40 mg PO DAILY Qty: 90 RF: 4 insulin lispro 100 unit/mL insulin pen 5 - 20 unit subcut TID RF: 0 magnesium oxide 400 MG tablet 800 mg PO DAILY Qty: 30 RF: 0 aspirin 325 mg Tablet 325 mg PO DAILY RF: 0 Changed nifedipine 30 mg tablet extended release 24hr 30 mg PO DAILY Qty: 180 RF: 4 Discontinued cilostazol 100 MG tablet 100 mg PO BID Qty: 180 RF: 4 Discharge Instructions Instructions: Osteomyelitis (DC) Additional Instructions: continue taking you procardia as you were at home, 30 mg in am and 60 mg in pm cilostazol has been removed from your medication list as you have not been taking it. keep dressing clean and dry with dressing changes per Dr Flores. wear surgical shoe provided at all times when ambulating. limit ambulation to facilitate healing. you will receive outpatient antibiotic infusion of ceftriaxone for 6 weeks you will need weekly labs on Mondays during this time. Referrals: Mohinder Mondragon [ [facility] STAFF PHYSICIAN] - (vascular surgery referral for history of PAD with recent amputation of 2nd left distal phalanx amp for osteo with gangrene. ) Waqas Flores DPM [[facility] STAFF PHYSICIAN] - Activity:: surgical shoe for ambulat Equipment/Supplies:: surgical shoe Diet:: Carb Counting Discharge Orders Other Ambulatory Orders: Basic Metabolic Panel (Routine) Timeframe: 20200221 Location: None Selected Ordered By: Tayler Colon Complete Blood Count w/Diff (Routine) Timeframe: 20200221 Location: None Selected Ordered By: Tayler Colon ESR (Routine) Timeframe: 20200221 Location: None Selected Ordered By: Tayler Colon C-Reactive Protein (Routine) Timeframe: 20200221 Location: None Selected Ordered By: Tayler Colon DS: Summary Status at Discharge Functional status at discharge: independent ambulation Overall status at discharge: patient is progressing back to baseline Mental Status: mental status grossly normal Speech and Movement: speech and movement normal Mood: congruent mood Affect: normal affect Exam Psych Mental Status: mental status grossly normal Speech and Movement: speech and movement normal Mood: congruent mood Affect: normal affect DS: Data Vitals/I&O Vitals and I&O: Vital Signs Temperature 36.8 C 02/17/20 06:38 Temperature Source Tympanic 02/17/20 06:38 Pulse 83 02/17/20 06:38 Pulse Rhythm Regular 02/17/20 03:56 Pulse Strength Normal 02/14/20 17:42 Respiratory Rate 18 02/17/20 06:38 Respiratory Effort Non-Labored 02/17/20 03:56 Respiratory Depth Normal 02/17/20 03:56 Respiratory Pattern Normal 02/17/20 03:56 Blood Pressure 164/72 H 02/17/20 06:38 Blood Pressure Mean 101 02/14/20 17:42 Blood Pressure Position Supine 02/14/20 17:42 Pulse Oximetry 96 02/17/20 06:38 Oxygen Delivery Method Room Air 02/17/20 06:38 Oxygen Flow Rate 0 02/17/20 06:38 Pain Level 0 02/17/20 06:38 Comment 02/16/20 07:27 Intake & Output 02/16/20 02/16/20 02/17/20 11:59 23:59 11:59 Intake Total 1390 / 3130 1740 / 3130 2290.417 / 2290.417 Output Total 1000 / 2255 1255 / 2255 1700 / 1700 Balance 390 / 875 485 / 875 590.417 / 590.417 Intake: IV 1150 / 2550 1400 / 2550 1810.417 / 1810.417 Oral 240 / 580 340 / 580 480 / 480 Output: Urine 1000 / 2255 1255 / 2255 1700 / 1700 Other: Urine Color Yellow Pale Light Kelly Yellow Urine Appearance Clear Clear Clear Urine Odor Normal Normal Normal Voiding Methods Urinal Urinal Urinal Data Completed and Pending Labs on day of discharge: Labs from last 24 hours 02/17/20 02/17/20 02/17/20 15:00 06:10 06:10 WBC 12.37 H RBC 4.68 Hgb 12.5 L Hct 37.2 L MCV 79.5 L MCH 26.7 L MCHC 33.6 RDW 13.3 Plt Count 266 MPV 10.2 Immature Gran % 0.3 Neutrophils % 73.7 Lymphocytes % 15.5 Monocytes % 7.6 Eosinophils % 2.5 Basophils % 0.4 Nucleated RBC % 0 Absolute Neutrophils 9.12 H Absolute Lymphocytes 1.92 Absolute Monocytes 0.94 H Absolute Eosinophils 0.31 Absolute Basophils 0.05 Sodium 137 Potassium 3.3 L Chloride 103 Carbon Dioxide 27.7 Anion Gap 6.3 BUN 12 Creatinine 0.64 L Estimated GFR/1.73 m2 >= 60.00 Glucose 87 Calcium 9.4 Magnesium 1.6 L C-Reactive Protein 11.05 H Vancomycin Trough Pending 02/16/20 15:15 WBC RBC Hgb Hct MCV MCH MCHC RDW Plt Count MPV Immature Gran % Neutrophils % Lymphocytes % Monocytes % Eosinophils % Basophils % Nucleated RBC % Absolute Neutrophils Absolute Lymphocytes Absolute Monocytes Absolute Eosinophils Absolute Basophils Sodium Potassium Chloride Carbon Dioxide Anion Gap BUN Creatinine Estimated GFR/1.73 m2 Glucose Calcium Magnesium C-Reactive Protein Vancomycin Trough 10.2 02/15/20 08:12 Toe - Left Second Digit Anaerobic Culture - Pending Preliminary micro results at discharge 02/15/20 08:13 Surgical Culture - Preliminary Toe - Left Second Digit Escherichia coli Gram Positive Barbie Gram Positive Barbie,Mixed 02/15/20 08:12 Anaerobic Culture - Pending Toe - Left Second Digit 02/15/20 19:15 Blood Culture - Preliminary Blood NO GROWTH 24 HOURS 02/15/20 19:25 Blood Culture - Preliminary Blood NO GROWTH 24 HOURS 02/14/20 16:10 Blood Culture - Preliminary Blood NO GROWTH 48 HOURS 02/14/20 16:00 Blood Culture - Preliminary Blood NO GROWTH 48 HOURS 02/14/20 16:17 Wound Culture - Preliminary Foot - Left Normal Barbie Gram Positive Barbie Gram Positive Barbie#2 [facility] Medical History (Updated 02/15/20 @ 12:27 by Tayler Colon NP) Asthma (06/24/12) Cerebrovascular accident (CVA) due to thrombosis of middle cerebral artery (09/12/15) Essential hypertension (12/10/12) Hypokalemia Hypomagnesemia Morbid obesity due to excess calories (05/26/15) Peripheral vascular disease (03/28/16) Status post blilateral femoral artery stents. 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 Father Diabetes Essential hypertension Heart disease Stroke Sister No problems noted. Sister No problems noted. Sister No problems noted. Sister No problems noted. Sister No problems noted. Brother Essential hypertension Brother No problems noted. Brother No problems noted. Brother No problems noted. Brother No problems noted. Grandfather No problems noted. Grandfather Diabetes Neoplasm Grandmother Heart disease Grandmother No problems noted. Daughter No problems noted. Daughter No problems noted. Daughter No problems noted. Social History Smoking/Tobacco Use Status: Never Smoking risk assessment performed?: Yes Alcohol Intake: never Drug use: Never Substance use type: does not use Do you feel safe in your relationship?: Yes
[2020-02-17] MEDS: MAGNESIUM SULFATE 2 GM/50 ML BAG IVPB (11:37)
[2020-02-17] MEDS: Insulin Aspart 300 UNITS/3 ML PEN SC ×2 (11:42→16:31)
[2020-02-17] MEDS: cefTRIAXone 2 GM/50 ML BAG IVPB (13:26)
--- NOTE | 2020-02-17 13:45 | W.PM.PROGNOT ---
Date of Service Date of service: 02/17/20 Time of Service: 13:45 Subjective Subjective Patient reports: no new complaints Interval history since last seen: Postop day #2 status post debridement left second toe. Jose Guadalupe is seen in his room resting comfortably in his bed. He indicates everything seems to be going well, he has had no pain at all. Exam Narrative Exam Narrative: Jose Guadalupe received a PICC line yesterday without difficulty. He did spike a fever last night but has not had a fever since. Blood cultures have been ordered. Jose Guadalupe is laying in bed with only a sheet over him which he states is his normal as he is always hot and that the hospital is even warmer than he keeps his own home. microbiology reports moderate growth E. coli resistant to ampicillin. Dressings appear clean and dry on the left foot. The dressings are removed, minimal discharge seen on the dressings. The erythema that was appreciated on the dorsum of the foot extends to the second metatarsal neck region which is unchanged from yesterday. The wound edges at the distal aspect of the second toe remain viable. I removed the single suture to further open the wound to allow easier drainage. Manipulation of the distal foot, milking it towards the second toe does express some serous drainage mixed with pus. No odor noted. No erythema seen plantarly on the foot and no pockets of fluid were palpable. Calf is soft to palpation. Intraoperative cultures E. coli sensitive to ceftriaxone Labs are reviewed. WBCs elevated slightly from yesterday now at 12.37 but his CRP is lower than yesterday now at 11.05 Impressions: 2 days status post debridement left second toe to bone including proximal phalangeal head for osteomyelitis infection gangrenous changes Plan: Jose Guadalupe will require 6 weeks of IV antibiotics 2 g ceftriaxone daily. We will discontinue the vancomycin and Zosyn The open wound was painted with povidone iodine, dressed with Xeroform gauze, Kerlex, stockinette and Pillo wrap. We will increase his activities full weightbearing as long as he is wearing the surgical shoe, but I do encourage him to keep his leg elevated when not actively ambulating. Wound care to be performed upon discharge will include washing of the foot with soap and water, Iodosorb to the open part of the wound gauze, kerlex, flex net and Pillo wrap daily. He will be receiving daily IV infusions here at the hospital on an outpatient basis after discharge. I discussed the case with the hospitalist. Objective Last Vital Signs Temp 36.8 C 02/17/20 06:38 Pulse 83 02/17/20 06:38 Resp 18 02/17/20 06:38 BP 164/72 H 02/17/20 06:38 Pulse Ox 96 02/17/20 06:38 Laboratory Results - last 24 hr 02/16/20 02/17/20 02/17/20 15:15 06:10 06:10 WBC 12.37 H RBC 4.68 Hgb 12.5 L Hct 37.2 L MCV 79.5 L MCH 26.7 L MCHC 33.6 RDW 13.3 Plt Count 266 MPV 10.2 Immature Gran % 0.3 Neutrophils % 73.7 Lymphocytes % 15.5 Monocytes % 7.6 Eosinophils % 2.5 Basophils % 0.4 Nucleated RBC % 0 Absolute Neutrophils 9.12 H Absolute Lymphocytes 1.92 Absolute Monocytes 0.94 H Absolute Eosinophils 0.31 Absolute Basophils 0.05 Sodium 137 Potassium 3.3 L Chloride 103 Carbon Dioxide 27.7 Anion Gap 6.3 BUN 12 Creatinine 0.64 L Estimated GFR/1.73 m2 >= 60.00 Glucose 87 Calcium 9.4 Magnesium 1.6 L C-Reactive Protein 11.05 H Vancomycin Trough 10.2 02/17/20 15:00 WBC RBC Hgb Hct MCV MCH MCHC RDW Plt Count MPV Immature Gran % Neutrophils % Lymphocytes % Monocytes % Eosinophils % Basophils % Nucleated RBC % Absolute Neutrophils Absolute Lymphocytes Absolute Monocytes Absolute Eosinophils Absolute Basophils Sodium Potassium Chloride Carbon Dioxide Anion Gap BUN Creatinine Estimated GFR/1.73 m2 Glucose Calcium Magnesium C-Reactive Protein Vancomycin Trough Cancelled
--- NOTE | 2020-02-17 14:50 | CMPROGNOTE_ITS ---
- If Service Date Differs Date of service: 02/17/20 Time of Service: 14:50 Care Management Progress Note S/O: Jose Guadalupe was lying in bed when CM met with him. Tayler, ESCALATOR CONSTRUCTOR, was in the room as well, going over his plan. He stated that he feels very good, and hopes to return home as soon as possible. His sensitivities returned and it was determined that he will need 6 weeks of IV abx. He advocated for returning home, as he does not want to remain at [facility] on [address] for the duration of his treatment. He is agreeable to returning to the infusion room daily. KARLY discussed the possibility of home IV abx vs infusion room. KARLY called the [facility] pharmacy to inquire about whether or not [facility] could supply the meds/supplies, as he is on [facility] insurance. Safety Instructor, Mario, was not available to make the decision, but Kacey discussed it with him remotely, and he stated that it may be possible. Jose Guadalupe will remain at [facility] overnight to monitor him after his abx is changed, and he will have his IV infusion tomorrow before returning home. He will then go to the Infusion room through the weekend, and CM will discuss the option of home infusion with Mario, [facility] pharmacy, on Friday. CM spoke to Analisa from [employer], regarding covering his home infusions. Analisa stated that she would be agreeable to covering his home infusions if he is able to learn how to administer them at home, knowing that the local [facility] likely will not be able to see him daily. CM will discuss this with Analisa further on Friday, after the oliday. [facility] [email or web address] contact: Rls-[phone]; [place] [phone] A: Jose Guadalupe is a 59 year old male admitted to [facility] on 02/14/20 with osteomyelitis of toe. P: Jose Guadalupe will receive his IV abx tomorrow around 1pm, and then will discharge home. He will then return daily to the infusion room (Infusion room is asking for this to be around 1:30pm daily) throughout the weekend and into next week. CM will attempt to coordinate home IV infusion next week between [facility] pharmacy and [employer] He will follow up with his PCP and discharge plan of care. His will drive him home via private vehicle when ready. KARLY will continue to follow.
[2020-02-17 15:24] VITALS: BP 164/79; PULSE 75; RESP 17; TEMP 37.2; O2SAT 95
[2020-02-17] MEDS: Insulin Glargine 300 UNITS/3 ML PEN 85 UNITS SC (16:32)
[2020-02-17] MEDS: NIFEdipine-CR 30 MG TABCR 60 MG PO (19:34)
[2020-02-17 20:35] VITALS: BP 180/80; PULSE 81; RESP 16; TEMP 37.7; O2SAT 100
[2020-02-17] MEDS: guanFACINE 1 MG TAB PO (21:17)
[2020-02-18] MEDS: Acetaminophen 325 MG TAB 650 MG PO (00:04)
[2020-02-18 00:09] VITALS: BP 160/70
[2020-02-18] MEDS: Normal Saline 1,000 ML 125 ML IV (04:27)
[2020-02-18] MEDS: Insulin Glargine 300 UNITS/3 ML PEN 85 UNITS SC (06:00)
[2020-02-18 06:40] LABS: Abs Immature Grans 0.07 10^3/uL (0.0-0.06); Absolute Basophil Count 0.05 10^3/uL (0.0-0.2); Absolute Lymphocyte Count 1.95 10^3/uL (1.2-3.4); Absolute Monocyte Count 0.95 10^3/uL (0.1-0.8); Basophils % 0.4; Eosinophils % 2.4; HCT 36.9 % (40.0-50.0); HGB 12.3 g/dL (13.5-17.5); Immature Grans % 0.6; Lymphocytes % 15.4; MCHC 33.3 % (32.0-36.0); MCV 80.9 fL (80-95); MPV 9.8 fL (8.0-11.0); Monocytes % 7.5; Neutrophils % 73.7; Nucleated RBC 0 %; Platelet Count 276 10^3/uL (130-400); RBC 4.56 10^6/uL (4.36-5.78); RDW 13.4 % (11.8-14.1); RDW-SD 39.7 fL; WBC 12.69 10^3/uL (4.4-10.8)
[2020-02-18 06:41] LABS: Absolute Neutrophil Count 9.35 10^3/uL (1.2-6.7)
[2020-02-18 06:51] LABS: Anion Gap 2.3 mmol/L (3-11); BUN 10 mg/dL (7-18); CO2 29.7 mmol/L (21.0-32.0); CREATININE 0.55 mg/dL (0.70-1.30); Calcium 9.5 mg/dL (8.5-10.1); Chloride 103 mmol/L (98-107); Glucose 160 mg/dL (74-106); Potassium 3.6 mmol/L (3.5-5.1); Sodium 135 mmol/L (136-145)
[2020-02-18] MEDS: Enoxaparin 40 MG/0.4 ML SYR SC (08:42)
[2020-02-18 08:45] VITALS: BP 161/80; PULSE 78; RESP 18; TEMP 36.8; O2SAT 97
[2020-02-18] MEDS: Insulin Aspart 300 UNITS/3 ML PEN SC ×2 (08:45→12:06)
[2020-02-18] MEDS: Atorvastatin 40 MG TAB PO (08:46)
[2020-02-18] MEDS: Losartan 50 MG TAB 100 MG PO (08:46)
[2020-02-18] MEDS: Chlorthalidone 25 MG TAB PO (08:46)
[2020-02-18] MEDS: Magnesium Oxide 400 MG TAB 800 MG PO (08:46)
[2020-02-18] MEDS: levETIRAcetam 500 MG TAB 1000 MG PO (08:47)
[2020-02-18] MEDS: Aspirin 325 MG TAB PO (08:47)
[2020-02-18] MEDS: NIFEdipine-CR 30 MG TABCR PO (08:47)
[2020-02-18] MEDS: Clopidogrel 75 MG TAB PO (08:47)
[2020-02-18 09:02] LABS: C-Reactive Protein 11.32 mg/dL (0.0-0.3)
[2020-02-18 09:19] LABS: Procalcitonin 0.1 ng/mL
[2020-02-18] MEDS: cefTRIAXone 2 GM/50 ML BAG IVPB (12:07)
--- NOTE | 2020-02-18 16:30 | PDOC.CMDIS ---
- If Service Date Differs Date of service: 02/18/20 Time of Service: 16:30 LACE Index Scoring Tool - Questions: Length of Stay (in days): 4 - 6 Acuity (Admit via E.D.?): Yes Comorbidities: Cerebrovascular Disease, PVD, Diabetes w/o Complication E.D. Visits: 2 - Answers: Total Score: 12 Risk of Readmission: High Risk Care Management Discharge Reason for Hospitalization: Osteomyelitis of Toe Discharge Plan: Jose Guadalupe will receive his IV abx around 1pm, and then will discharge home. He will then return daily to the infusion room (Infusion room is asking for this to be around 1:30pm daily) throughout the weekend and into next week. CM will attempt to coordinate home IV infusion next week between [facility] pharmacy and [facility]. He will follow up with his PCP and discharge plan of care. His will drive him home via private vehicle when ready. Patient/Family Education Needs: Review discharge instructions regarding activity levels and medications, discussion of self care needs including Ask me three. Services Needed at Discharge: Infusion Therapy
== END 2020-02-18 14:18 | disposition home or self-care (01) | DRG 504 ==
LOC: ER 18:03 → MS 18:24
PROVIDERS: Internal Medicine; Nurse Practitioner Acute Care; Podiatrist; Admitting Provider General Practice; Emergency Provider Emergency Medicine; PCP Family Medicine; Visit Provider General Practice
PROC: 0Y6S0Z2 Detachment at Left 2nd Toe, Mid, Open Approach (ICD-10-PCS; CPT 28825; principal; 2020-02-15 07:30)
DX: M86.172 Other acute osteomyelitis, left ankle and foot (principal); E11.52 Type 2 diabetes mellitus with diabetic peripheral angiopathy with gangrene; I96 Gangrene, not elsewhere classified; L03.116 Cellulitis of left lower limb; E11.65 Type 2 diabetes mellitus with hyperglycemia; Z79.4 Long term (current) use of insulin; J45.909 Unspecified asthma, uncomplicated; I10 Essential (primary) hypertension; E87.6 Hypokalemia; E83.42 Hypomagnesemia; R48.3 Visual agnosia; I69.398 Other sequelae of cerebral infarction; H53.8 Other visual disturbances; E66.01 Morbid (severe) obesity due to excess calories; B96.20 Unspecified Escherichia coli [E. coli] as the cause of diseases classified elsewhere
CPT/HCPCS: 28825; 36410; 36415; 36573; 80048; 80053; 84145; 85652; 87040; 87077; 88300; 88305; 96361; 96365; 96366; 99222; 99223; 99233; 99239; 99285; J1650; U0003; 73660; 80202; 81003; 81015; 83735; 85025; 86140; 87070; 87075; 87186; 87205; 88311; J2543; J3480

== ENCOUNTER 2020-02-22 02:50 | Outpatient (RCR) | payer OTHER, SELFPAY ==
[2020-02-19] MEDS: Normal Saline Flush 10 ML SYR IV (11:39)
[2020-02-19] MEDS: cefTRIAXone 2 GM/50 ML BAG 100 GM (11:40)
[2020-02-20] MEDS: Normal Saline Flush 10 ML SYR IV (11:00)
[2020-02-20] MEDS: cefTRIAXone 2 GM/50 ML BAG IVPB (11:01)
[2020-02-21] MEDS: cefTRIAXone 2 GM/50 ML BAG IVPB (10:36)
[2020-02-21] MEDS: Normal Saline Flush 10 ML SYR IV (10:37)
== END 2020-02-24 23:59 | disposition home or self-care (01) ==
LOC: INF 02:50
PROVIDERS: PCP Family Medicine; Visit Provider Nurse Practitioner Acute Care
DX: M86.172 Other acute osteomyelitis, left ankle and foot (principal); L03.116 Cellulitis of left lower limb; I96 Gangrene, not elsewhere classified
CPT/HCPCS: 96365; 99211

== ENCOUNTER 2020-02-28 02:54 | Outpatient (RCR) | payer OTHER, SELFPAY | END 2020-03-24 13:08 | LOC: INF 02:54 | PROVIDERS: PCP Family Medicine; Visit Provider Nurse Practitioner Acute Care | DX: Z53.9 Procedure and treatment not carried out, unspecified reason (principal) ==

== ENCOUNTER 2020-02-29 02:26 | Outpatient (RCR) | payer OTHER, SELFPAY | END 2020-03-24 13:08 | LOC: INF 02:26 | PROVIDERS: PCP Family Medicine; Visit Provider Internal Medicine | DX: Z53.9 Procedure and treatment not carried out, unspecified reason (principal) ==

== ENCOUNTER 2020-05-01 01:58 | Outpatient (CLI) | payer OTHER, SELFPAY ==
--- NOTE | 2020-05-01 | DI.MRI_ITS ---
EXAM: MR LOWER EXTREMITY LT WO/W CLINICAL HISTORY: DIABETIC WITH ULCER,S/P AMP 2ND TOE,NON HEALING WOUND,? OSTEO. TECHNIQUE: Multiplanar multisequence MRI was performed. COMPARISON: CR,XR XR TOE LT SECOND from 02/14/2020. No postoperative exam is available for comparis on. FINDINGS: The patient is status post amputation of the 2nd toe. There is high signal in the soft tissues of t he dorsum of the foot and around the head of the 2nd metatarsal. There is no drainable abscess or fl uid collection. There is a small amount of high signal within the head of the 2nd metatarsal and a s mall amount of post gadolinium enhancement. Findings could represent a small amount of osteomyelitis versus postsurgical change. There are degenerative changes at the 1st MTP joint. IMPRESSION: Question postsurgical change versus osteomyelitis in the head of the 2nd metatarsal. DATA REPOSITORY:
[2020-05-01] MEDS: Normal Saline Flush 10 ML SYR IVP (09:26)
[2020-05-01] MEDS: Gadoterate meglumine 20 ML VIAL 17 ML IVP (09:26)
== END 2020-05-01 02:18 ==
PROVIDERS: PCP Family Medicine; Visit Provider Podiatrist
DX: Z89.422 Acquired absence of other left toe(s) (principal); T81.89XA Other complications of procedures, not elsewhere classified, initial encounter
CPT/HCPCS: 73720

== ENCOUNTER 2021-03-27 02:12 | Outpatient (CLI) | payer OTHER, SELFPAY ==
[2021-03-27 07:58] LABS: Calculated LDL 47 mg/dL (<100); Cholesterol 96 mg/dL (<200); HDL Cholesterol 37 mg/dL (40-60); Triglyceride 63 mg/dL (<150)
[2021-03-27 17:39] LABS: PSA, Screening 1.4 ng/mL (0.0-4.5)
== END 2021-03-27 02:13 | disposition home or self-care (01) ==
LOC: LBO 02:12
PROVIDERS: PCP Nurse Practitioner Family; Visit Provider Nurse Practitioner Family
DX: R35.1 Nocturia (principal); Z13.220 Encounter for screening for lipoid disorders; Z12.5 Encounter for screening for malignant neoplasm of prostate
CPT/HCPCS: 36415; 80061; 84153

== ENCOUNTER 2021-11-07 01:49 | Outpatient (CLI) | payer OTHER, SELFPAY ==
[2021-11-07 07:40] LABS: Hemoglobin A1C 8.4 % (<5.7)
[2021-11-07 07:41] LABS: ALT 69 U/L (16-63); AST 29 U/L (15-37); Albumin 3.9 g/dL (3.4-5.0); Alkaline Phosphatase 117 U/L (46-116); Anion Gap 8.9 mmol/L (3-11); BUN 17 mg/dL (7-18); Bilirubin, Total 0.7 mg/dL (0.2-1.0); CO2 32.1 mmol/L (21.0-32.0); CREATININE 0.8 mg/dL (0.70-1.30); Calcium 10.1 mg/dL (8.5-10.1); Chloride 99 mmol/L (98-107); Estimated GFR 99.44 (mL/min/1.73m2); Glucose 112 mg/dL (74-106); Potassium 3.4 mmol/L (3.5-5.1); Sodium 140 mmol/L (136-145); Total Protein 7.4 g/dL (6.4-8.2)
[2021-11-08 15:30] LABS: Levetiracetam 22.1 mcg/mL
== END 2021-11-07 01:50 | disposition home or self-care (01) ==
LOC: LBO 01:49
PROVIDERS: PCP Nurse Practitioner Family; Visit Provider Nurse Practitioner Family
DX: E11.9 Type 2 diabetes mellitus without complications (principal); G40.909 Epilepsy, unspecified, not intractable, without status epilepticus
CPT/HCPCS: 36415; 80053; 80177; 83036

== ENCOUNTER 2022-05-26 11:31 | Emergency (ER) | payer MEDICAID, SELFPAY ==
[2022-05-26 11:35] VITALS: BP 200/70; PULSE 58; RESP 16; TEMP 35.8; O2SAT 97
--- NOTE | 2022-05-26 11:45 | DI.RAD_ITS ---
Exam(s) XR FOOT RT COMPLETE EXAM: XR FOOT RT COMPLETE CLINICAL HISTORY: Diabetic infected right toe. TECHNIQUE: 2D digital imaging was performed. COMPARISON: CR,XR XR TOE LT SECOND from 02/14/2020 FINDINGS: 3 views There is diffuse soft tissue swelling. No radiopaque foreign body. No acute fractures evident and n o diastasis of the Lisfranc joint. Moderate degenerative changes noted at the great toe metatarsopha langeal joint. There is also calcification in the soft tissues off the medial aspect of the head of the great toe metatarsal. Also subarticular intraosseous cysts noted in the adjacent medial aspect o f the head of the great toe metatarsal. Small osteophytes off the lateral aspect. Small enthesophyte noted at the Achilles insertion on the posterior aspect of the calcaneus and there is also calcification in the slightly thickened Achilles tendon. Also noted is vascular calcification in the distal anterior tibial artery. IMPRESSION: Soft tissues swelling. No fractures. Degenerative changes at the 1st metatarsophalangeal joint with medial heterotrophic calcification in the adjacent soft tissues. Calcification in the Achilles tendon consistent with chronic tendinitis. DATA REPOSITORY: RADIATION DOSE DELIVERED:
[2022-05-26] MEDS: Doxycycline Hyclate 100 MG CAP PO (12:19)
[2022-05-26] MEDS: Cephalexin 500 MG CAP PO (12:19)
--- NOTE | 2022-05-26 12:30 | DI.VRAD_ITS ---
PROCEDURE INFORMATION: Exam: XR Right Foot Exam date and time: 05/26/2022 12:08 PM Age: 62 years old Clinical indication: Other: Diabetic infected right toe TECHNIQUE: Imaging protocol: Radiologic exam of the right foot. Views: 3 or more views. COMPARISON: No relevant prior studies available. FINDINGS: Bones/joints: Degenerative arthritis in the 1st MTP joint. Heterotopic ossification medial to the 1st MTP joint. Achilles calcaneal spur. Heterotopic ossification lateral to the calcaneus, likely accessory ossicle. Soft tissues: Diffuse soft tissue swelling. Vasculature: Vascular calcifications. IMPRESSION: 1. 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 2. Diffuse soft tissue swelling Dictated and Authenticated by: Omayra Pacheco MD. Ordering:SHANIQUE Valdes MD
--- NOTE | 2022-05-26 12:33 | ED.GENADUL_ITS ---
Discharge Plan Disposition Patient Disposition: Home Discharge Details Clinical Impression: Diabetic foot infection, Essential hypertension Primary Care Provider: Tanner Mckinley ED Provider: Lucio Ramirez Home Meds and New Rx's Prescriptions: New cephalexin 500 mg tablet 500 mg PO QID 7 Days Qty: 28 0RF doxycycline hyclate 100 mg capsule 100 mg PO BID Qty: 14 0RF Continued (DME) FreeStyle Adama 14 Day [place] Misc See Rx Instructions .ROUTE .MEDSUPPLY Qty: 1 4RF Rx Instructions: Check blood sugar 4 times a day nifedipine 90 mg tablet extended release 24hr 90 mg PO BID Qty: 180 3RF atorvastatin [Lipitor] 40 mg tablet 40 mg PO DAILY Qty: 90 4RF chlorthalidone 25 mg tablet 25 mg PO DAILY Qty: 90 4RF clopidogrel [Plavix] 75 mg tablet 75 mg PO DAILY Qty: 90 3RF insulin lispro 100 unit/mL insulin pen 5 - 20 unit subcut TID Qty: 54 3RF Xarelto 2.5 mg tablet 2.5 mg PO BID Qty: 180 4RF insulin glargine [Lantus Solostar U-100 Insulin] 100 unit/mL (3 mL) insulin pen 40 unit subcut Q12H Qty: 30 3RF Jardiance 10 mg tablet 10 mg PO DAILY Qty: 90 3RF losartan 100 mg tablet 100 mg PO DAILY Qty: 90 3RF guanfacine 1 mg tablet 1 mg PO HS Qty: 90 3RF (DME) pen needle, diabetic [BD Ultra-Fine Helene Pen Needle] 32 gauge x 5/32 needle 1 ea Miscellaneous 5 times daily Qty: 200 5RF Rx Instructions: One TID (DME) FreeStyle Adama 14 Day Sensor Kit See Rx Instructions .ROUTE .MEDSUPPLY Qty: 1 8RF Rx Instructions: Check blood sugar 4 times a day fluticasone propionate [Flovent HFA] 110 mcg/actuation HFA aerosol inhaler 110 mcg Inhalation BID PRN (Reason: asthma) Qty: 12 3RF levetiracetam [Keppra] 500 mg tablet 1,000 mg PO BID Qty: 360 0RF metformin 500 mg tablet 500 mg PO BID Qty: 180 3RF albuterol sulfate [Ventolin HFA] 90 mcg/actuation HFA aerosol inhaler 2 puff inhalation BID Qty: 8.5 3RF Discharge Instructions Instructions: Cellulitis (ED), Diabetic Foot Ulcers (ED) Additional Instructions: Please monitor your symptoms very closely and have a low threshold to return the emergency department for any new or significant worsening of your symptoms. Please take all of your medications as prescribed as your blood pressure was noted to be elevated today. You also want to make sure that you control your diabetes as this will help with wound healing. Please follow-up with your primary care provider for reassessment of your foot and to ensure appropriate healing. Referrals: Tanner Mckinley [facility] [Primary Care Provider] - 3 days Discharge Data Discharge Date/Time-TO BE ENTERED AT DEPARTURE: 05/26/22 12:57 Medical Decision Making Patient presenting to the emergency department for right great toe infection. Patient is a diabetic , with history of hypertension, obesity, stenting and anticoagulation. He is just getting back from [place] and noted some dry cracking skin last Friday. Since then redness and erythema has worsened. Patient denies any other symptoms. Patient has no calf or medial leg pain, has slight abrasion/puncture of the plantar aspect of the right great toe with erythema of the great toe and dorsal foot. Exam is otherwise unremarkable. I am concerned for diabetic foot ulcer. We will start patient on Keflex and doxycycline. Perform radiological imaging for any potential bony involvement. Patient is hypertensive upon arrival but states he has not taken his medication and did have disagreement with family member prior to arrival. Radiological imaging shows some degenerative arthritis but no obvious signs of osteomyelitis. I do not feel that any further imaging is warranted at this time and will continue patient on antibiotics with close follow-up and reassessment by primary care provider. After discussion of diagnosis and plan of care patient has no further needs, questions, or concerns and states clear understanding to return to the emergency department for any worsening symptoms. This documentation was generated using [employer] system, please disregard any oddities of phrase or misspellings. Medical Records Medical records reviewed: Yes I reviewed the patient's medical records. Medical records narrative: Previous provider [facility] provider notes Imaging Data Radiologic Study: Attestation: I personally reviewed and interpreted this imaging study as follows: Imaging: X-Ray Radiologist's impression: Exam(s) PROCEDURE INFORMATION: Exam: XR Right Foot Exam date and time: 05/26/2022 12:08 PM Age: 62 years old Clinical indication: Other: Diabetic infected right toe TECHNIQUE: Imaging protocol: Radiologic exam of the right foot. Views: 3 or more views. COMPARISON: No relevant prior studies available. FINDINGS: Bones/joints: Degenerative arthritis in the 1st MTP joint. Heterotopic ossification medial to the 1st MTP joint. Achilles calcaneal spur. Heterotopic ossification lateral to the calcaneus, likely accessory ossicle. Soft tissues: Diffuse soft tissue swelling. Vasculature: Vascular calcifications. IMPRESSION: 1. 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 2. Diffuse soft tissue swelling HPI General Mode of arrival: ambulatory . Date/Time Provider Initiated Documentation: 05/26/22 11:32 . Limitations to Documentation: no limitations . Information obtained by: patient, family and RN notes reviewed . History of Present Illness 62 year old M presents to the emergency department with the chief complaint of Right great toe infection, described as moderate and similar to prior episodes, Quality is described as other (Denies pain), Patient started experiencing this week(s) (1) and it has been constant. No relieving factors improve symptom(s), No exacerbating factors reported . Patient notes no other symptoms.. Patient did receive the following treatments prior to arrival, none Related Data Home Medications Medication Instructions Recorded Confirmed flash glucose scanning reader #1 ea 01/01/19 12/12/21 (FreeStyle Adama 14 Day [place]) atorvastatin 40 mg tablet (Lipitor) 40 mg PO DAILY #90 tab-caps 02/27/21 12/12/21 chlorthalidone 25 mg tablet 25 mg PO DAILY #90 tab-caps 07/03/21 12/12/21 clopidogrel 75 mg tablet (Plavix) 75 mg PO DAILY #90 tabs 09/20/21 12/12/21 insulin lispro 100 unit/mL 5 - 20 unit (0.05 - 0.2 mL) subcut 11/09/21 12/12/21 subcutaneous pen TID #54 mL rivaroxaban 2.5 mg tablet (Xarelto) 2.5 mg PO BID #180 tabs 11/22/21 12/12/21 insulin glargine 100 unit/mL (3 40 unit (0.4 mL) subcut Q12H #30 mL 11/27/21 12/12/21 mL) subcutaneous pen (Lantus Solostar U-100 Insulin) nifedipine 90 mg tablet,extended 90 mg PO BID #180 tab-caps 12/12/21 12/12/21 release 24 hr empagliflozin 10 mg tablet 10 mg PO DAILY #90 tabs 01/15/22 (Jardiance) losartan 100 mg tablet 100 mg PO DAILY #90 tab-caps 01/15/22 guanfacine 1 mg tablet 1 mg PO HS #90 tab-caps 01/30/22 pen needle, diabetic 32 gauge x #200 ea 02/22/22 (BD Ultra-Fine Helene Pen Needle) flash glucose sensor (FreeStyle #1 ea 04/11/22 Adama 14 Day Sensor kit) fluticasone propionate 110 110 mcg inhalation BID PRN asthma 04/11/22 mcg/actuation HFA aerosol inhaler #12 grams (Flovent HFA) levetiracetam 500 mg tablet 1,000 mg PO BID #360 tabs 04/11/22 05/26/22 (Keppra) metformin 500 mg tablet 500 mg PO BID #180 tabs 04/11/22 albuterol sulfate 90 mcg/actuation 2 puff inhalation BID #8.5 grams 04/15/22 aerosol inhaler (Ventolin HFA) cephalexin 500 mg tablet 500 mg PO QID 7 days #28 tabs 05/26/22 doxycycline hyclate 100 mg capsule 100 mg PO BID #14 caps 05/26/22 Previous Rx's Medication Instructions Recorded flash glucose scanning reader #1 ea 01/01/19 (FreeStyle Adama 14 Day [place]) atorvastatin 40 mg tablet (Lipitor) 40 mg PO DAILY #90 tab-caps 02/27/21 chlorthalidone 25 mg tablet 25 mg PO DAILY #90 tab-caps 07/03/21 clopidogrel 75 mg tablet (Plavix) 75 mg PO DAILY #90 tabs 09/20/21 insulin lispro 100 unit/mL 5 - 20 unit (0.05 - 0.2 mL) subcut 11/09/21 subcutaneous pen TID #54 mL rivaroxaban 2.5 mg tablet (Xarelto) 2.5 mg PO BID #180 tabs 11/22/21 insulin glargine 100 unit/mL (3 40 unit (0.4 mL) subcut Q12H #30 mL 11/27/21 mL) subcutaneous pen (Lantus Solostar U-100 Insulin) nifedipine 90 mg tablet,extended 90 mg PO BID #180 tab-caps 12/12/21 release 24 hr empagliflozin 10 mg tablet 10 mg PO DAILY #90 tabs 01/15/22 (Jardiance) losartan 100 mg tablet 100 mg PO DAILY #90 tab-caps 01/15/22 guanfacine 1 mg tablet 1 mg PO HS #90 tab-caps 01/30/22 pen needle, diabetic 32 gauge x #200 ea 02/22/22 (BD Ultra-Fine Helene Pen Needle) flash glucose sensor (FreeStyle #1 ea 04/11/22 Adama 14 Day Sensor kit) fluticasone propionate 110 110 mcg inhalation BID PRN asthma 04/11/22 mcg/actuation HFA aerosol inhaler #12 grams (Flovent HFA) levetiracetam 500 mg tablet 1,000 mg PO BID #360 tabs 04/11/22 (Keppra) metformin 500 mg tablet 500 mg PO BID #180 tabs 04/11/22 albuterol sulfate 90 mcg/actuation 2 puff inhalation BID #8.5 grams 04/15/22 aerosol inhaler (Ventolin HFA) cephalexin 500 mg tablet 500 mg PO QID 7 days #28 tabs 05/26/22 doxycycline hyclate 100 mg capsule 100 mg PO BID #14 caps 05/26/22 Allergies Allergy/AdvReac Type Severity Reaction Status Date / Time metformin AdvReac Intermediate Diarrhea Verified 05/26/22 11:52 General Stated Complaint: Cellulitis JIM: 3 Review of Systems Narrative: 6 systems reviewed and unremarkable except what is marked below. Constitutional Constitutional: Denies chills and Denies fever(s) Cardiovascular Cardiovascular: Denies chest pain Integumentary/Breasts Skin/Breast: Reports as per HPI and Reports wounds PFSH All Active Problems (Updated 05/26/22 @ 12:41 by Lucio Ramirez NP) Diabetic foot infection (Acute) Comprehensive diabetic foot examination, type 2 DM, encounter for (Acute) Anticoagulated (Acute) Hypomagnesemia (Acute) Nocturia (Acute) Hypokalemia (Acute) Seizure disorder (Chronic) Had 2 seizures since CVA Type II diabetes mellitus, uncontrolled (Chronic) Peripheral vascular disease (Chronic 03/28/16) Status post blilateral femoral artery stents. 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 Social History Smoking/Tobacco Use Status: Former Tobacco Use Quit Date: 02/24/89 Tobacco: How many years used: 15 Smoking risk assessment performed?: Yes Alcohol Intake: never Drug use: Never Substance use type: does not use Caregiver/Support person: No Household members: spouse Housing: apartment Communication Needs: None Do you need help understanding health information?: Never Pets and animals: Yes Pets and animals: dog(s) Sexually active: Yes Do you think of yourself as: straight/heterosexual Current gender identity: male What is your relationship status?: How often do you talk on the phone with friends or family?: three or more times per week How often do you get together with friends or relatives?: three or more times per week How often do you attend baptism or confucianist services?: 1-3 times per year Do you belong to any clubs or organized social groups?: yes Panel score (0-1 are the most socially isolated patients): 3 What type of physical activity do you participate in: decline to answer Duration: decline to answer Frequency: decline to answer Marina/Confucianism: Mu-Ism Special marina needs: No Seatbelt use: always Helmet use: Yes Helmet use: always Drive intox or ride w/intox local tanker truck driver: No Do you feel safe at home: Yes Do you feel safe in your relationship?: Yes Exam Const General: cooperative, no acute distress and not ill appearing Orientation: alert, awake and oriented x3 HENMT Mouth: moist mucous membranes Resp Effort & Inspection: normal respiratory effort, able to speak in complete sentences and no respiratory distress Cardio Rate: regular rate Rhythm: regular rhythm Pulses: normal peripheral pulses Skin General skin exam: no rashes or lesions noted Neuro General: patient alert, patient awake, patient oriented x3, moves all extremities and no focal motor deficits Sensory Exam: no sensory deficits noted Extrem Right lower extremity: foot Details: toes with normal ROM, warmth Location: of the dorsal foot, vascular exam Details: dorsalis pedis pulse present and normal capillary refill, tendon exam and other (Erythema and plantar abrasion to great toe); no tenderness Course Vital Signs Vital signs: Vital Signs Temperature 35.8 C L 05/26/22 11:35 Pulse 58 L 05/26/22 11:35 Respiratory Rate 16 05/26/22 11:35 Blood Pressure 200/70 H 05/26/22 11:35 Pulse Oximetry 97 05/26/22 11:35 Temperature 35.8 C L 05/26/22 11:35 Temperature Source Tympanic 05/26/22 11:35 Pulse 58 L 05/26/22 11:35 Respiratory Rate 16 05/26/22 11:35 Respiratory Effort Normal 05/26/22 11:49 Blood Pressure 200/70 H 05/26/22 11:35 Blood Pressure Position Sitting 05/26/22 11:35 Pulse Oximetry 97 05/26/22 11:35 Oxygen Delivery Method Room Air 05/26/22 11:35 Oxygen Flow Rate 0 05/26/22 11:35 Pain Level 0 05/26/22 11:35
--- NOTE | 2022-05-26 12:46 | NUR.NOTE ---
Nursing Note: Referral faxed to PCP for diabetic foot infection in 3 to 5 days.
== END 2022-05-26 12:57 | disposition home or self-care (01) ==
PROVIDERS: Emergency Provider Nurse Practitioner Family; PCP Nurse Practitioner Family
DX: E11.628 Type 2 diabetes mellitus with other skin complications (principal); L08.9 Local infection of the skin and subcutaneous tissue, unspecified; I10 Essential (primary) hypertension; M19.071 Primary osteoarthritis, right ankle and foot; Z79.4 Long term (current) use of insulin; Z95.5 Presence of coronary angioplasty implant and graft; Z79.01 Long term (current) use of anticoagulants
CPT/HCPCS: 99283; 73630; 99284

== ENCOUNTER 2022-06-14 15:14 | Outpatient (CLI) | payer MEDICAID, SELFPAY ==
--- NOTE | 2022-06-14 09:30 | DI.RAD_ITS ---
Exam(s) XR FOOT RT COMPLETE EXAM: XR FOOT RT COMPLETE CLINICAL HISTORY: open wound, concern for osteo E11.628 DIABETES L08.9 INFECTION. TECHNIQUE: 2D digital imaging was performed. COMPARISON: CR,XR XR FOOT RT COMPLETE from 05/26/2022 FINDINGS: 3 views No evidence acute fracture nor diastasis of the Lisfranc joint. There is calcification again noted i n the soft tissues just medial to the head of the great toe metatarsal. However, no true erosions at this level. More distally at the level of the distal phalanx there is bandage material. No radiopaque foreign [place] dy. No obvious radiographic evidence of osteomyelitis in the distal phalanx nor in the proximal phal anx. IMPRESSION: No radiographic evidence of osteomyelitis. No acute fractures. DATA REPOSITORY: RADIATION DOSE DELIVERED:
== END 2022-06-14 15:34 ==
LOC: DI 15:19
PROVIDERS: PCP Nurse Practitioner Family; Visit Provider Nurse Practitioner Family
DX: E11.628 Type 2 diabetes mellitus with other skin complications (principal); L08.9 Local infection of the skin and subcutaneous tissue, unspecified
CPT/HCPCS: 73630

== ENCOUNTER 2022-09-20 01:29 | Outpatient (CLI) | payer MEDICAID, SELFPAY ==
[2022-09-20 16:23] LABS: Bilirubin Negative (Negative); Blood Negative (Negative); Clarity Clear (Clear); Glucose >=1000 mg/dL (Negative); Ketones Negative (Negative); Leukocyte Esterase Negative (Negative); Nitrite Negative (Negative); Urobilinogen 0.2 mg/dL (Up to 0.2); pH 5.5 (5-8)
[2022-09-20 16:37] LABS: WBC 0-2 HPF (0-5)
[2022-09-20 16:38] LABS: Bacteria Negative HPF (Negative); C & S Indicated? No; Casts Negative LPF (Negative); Crystals Negative HPF (Negative); Epithelial Cells Negative HPF (Negative); Mucus Negative (Negative); RBC 0-2 HPF (0-2)
[2022-09-20 16:56] LABS: ALT 24 U/L (16-63); AST 10 U/L (15-37); Albumin 3.6 g/dL (3.4-5.0); Alkaline Phosphatase 148 U/L (46-116); Anion Gap 7.6 mmol/L (3-11); BUN 19 mg/dL (7-18); Bilirubin, Total 0.3 mg/dL (0.2-1.0); CO2 32.4 mmol/L (21.0-32.0); CREATININE 0.8 mg/dL (0.70-1.30); Calcium 10.3 mg/dL (8.5-10.1); Chloride 102 mmol/L (98-107); Estimated GFR 98.83 (mL/min/1.73m2); Glucose 266 mg/dL (74-106); Potassium 3.5 mmol/L (3.5-5.1); Sodium 142 mmol/L (136-145); Total Protein 7.2 g/dL (6.4-8.2)
[2022-09-20 17:06] LABS: Hemoglobin A1C 6.7 % (<5.7)
[2022-09-23 09:54] LABS: PSA, Screening 1.4 ng/mL (<=4.5)
== END 2022-09-20 01:30 | disposition home or self-care (01) ==
PROVIDERS: PCP Family Medicine; Visit Provider Family Medicine
DX: I10 Essential (primary) hypertension (principal); E11.51 Type 2 diabetes mellitus with diabetic peripheral angiopathy without gangrene; R30.0 Dysuria; Z12.5 Encounter for screening for malignant neoplasm of prostate; Z79.4 Long term (current) use of insulin; R35.0 Frequency of micturition
CPT/HCPCS: 36415; 80053; 84153; 81003; 81015; 82043; 82570; 83036

== ENCOUNTER 2022-10-02 10:35 | Outpatient (CLI) | payer MEDICAID, SELFPAY ==
[2022-10-02 13:01] LABS: Vitamin D 25 Total 20.8 ng/mL (30-100)
[2022-10-02 19:35] LABS: Parathyroid Hormone,Intact 43 pg/mL (19-88)
[2022-10-03 09:37] LABS: Calcium (Random Urine) 2.7 mg/dL (See Note)
[2022-10-07 15:53] LABS: 1,25-Dihydroxyvitamin D 22 pg/mL (18-64)
== END 2022-10-02 10:36 | disposition home or self-care (01) ==
LOC: LOS 10:35
PROVIDERS: PCP Family Medicine; Referring Provider Family Medicine; Visit Provider Family Medicine
DX: E83.52 Hypercalcemia (principal)
CPT/HCPCS: 36415; 82306; 82340; 82652; 83970

== ENCOUNTER 2022-12-04 11:30 | Emergency (ER) | payer MEDICAID, SELFPAY ==
[2022-12-04 11:38] VITALS: BP 147/86; PULSE 76; RESP 20; TEMP 37; O2SAT 99
[2022-12-04 13:05] LABS: Bilirubin Negative (Negative); Blood Trace-intact (Negative); Clarity Clear (Clear); Glucose >=1000 mg/dL (Negative); Ketones Negative (Negative); Leukocyte Esterase Negative (Negative); Nitrite Negative (Negative); Urobilinogen 0.2 mg/dL (Up to 0.2)
[2022-12-04 13:12] LABS: Bacteria Rare HPF (Negative); C & S Indicated? No; Casts Negative LPF (Negative); Crystals Negative HPF (Negative); Epithelial Cells Rare HPF (Negative); Mucus Negative (Negative)
--- NOTE | 2022-12-04 14:12 | W.ED.GENAD ---
Discharge Plan Disposition Patient Disposition: Home Discharge Details Clinical Impression: Dysuria Primary Care Provider: Cesilia Santiago ED Provider: Mandie Cam Home Meds and New Rx's Prescriptions: New guanfacine 1 mg tablet 0.5 mg PO QHS Qty: 14 0RF Continued (DME) FreeStyle Adama 14 Day [place] Misc See Rx Instructions .ROUTE .MEDSUPPLY Qty: 1 4RF Rx Instructions: Check blood sugar 4 times a day nifedipine 90 mg tablet extended release 24hr 90 mg PO BID Qty: 180 3RF albuterol sulfate [Ventolin HFA] 90 mcg/actuation HFA aerosol inhaler 2 puff inhalation BID PRN (Reason: dyspnea) Jardiance 10 mg tablet 10 mg PO DAILY Patient Comments: TAKE ONE TABLET BY MOUTH EVERY DAY atorvastatin [Lipitor] 40 mg tablet 40 mg PO DAILY Qty: 90 4RF aspirin 81 mg tablet,delayed release (DR/EC) 81 mg PO DAILY metformin 500 mg tablet 500 mg PO BID Qty: 180 3RF levetiracetam [Keppra] 500 mg tablet 1,000 mg PO BID Qty: 360 1RF fluticasone propionate [Flovent HFA] 110 mcg/actuation HFA aerosol inhaler 1 puff inhalation BID Patient Comments: INHALE 1 PUFF TWO TIMES A DAY DIRECTED losartan 100 mg tablet 100 mg PO DAILY Qty: 90 3RF chlorthalidone 25 mg tablet 25 mg PO DAILY Qty: 90 4RF (DME) FreeStyle Adama 14 Day Sensor Kit See Rx Instructions .ROUTE .MEDSUPPLY Qty: 2 8RF Rx Instructions: Check blood sugar 4 times a day cholecalciferol (vitamin D3) 25 mcg (1,000 unit) capsule 25 mcg PO DAILY insulin glargine [Lantus Solostar U-100 Insulin] 100 unit/mL (3 mL) insulin pen 44 unit subcut QAM Qty: 15 12RF tamsulosin 0.4 mg capsule 0.4 mg PO QHS Qty: 90 1RF Xarelto 2.5 mg tablet 2.5 mg PO BID Qty: 180 4RF Discontinued guanfacine 1 mg tablet 1 mg PO HS Qty: 90 3RF Discharge Instructions Instructions: Dysuria (ED) Additional Instructions: Try taking half milligram of guanfacine at night instead of the 1 mg capsule Follow-up with your doctor I wonder if the guanfacine is causing some urinary retention as this is 1 side effect of this medication Should you have persistent symptoms I do recommend recheck in 1 week and return earlier should you have new or worsening complaints Referrals: Cesilia Santiago MD [Primary Care Provider] - Medical Decision Making 62-year-old gentleman presenting with urgency and hesitancy for the past week. Denies any distal burning or flank pain. Denies fever or chills. States he was started on guanfacine for nocturia approximately 1 month ago Nocturia has been successfully treated, however patient may be having adverse effect of daytime dysuria secondary to it, will decrease guanfacine to 0.5 mg and have recheck with primary care physician this week, patient is a known insulin-dependent diabetic, blood sugars have been stable, no evidence of infection, urine will be sent for culture No abdominal or flank tenderness, alert and oriented, stable vitals recheck with primary care physician this week recommended Early return precautions reviewed and patient expressed understanding HPI General Date/Time Provider Initiated Documentation: 12/04/22 12:18. HPI Narrative: This 62-year-old male presents with a report of urgency and hesitancy with urination. He was recently started on guanfacine a month ago for nocturia. Denies fever or chills. States he is thinks he is able to empty completely. Denies any flank pain. States his blood glucose has been stable at home, last checked this morning 200. Related Data Home Medications Medication Instructions Recorded Confirmed flash glucose scanning reader #1 ea 01/01/19 11/29/22 (FreeStyle Adama 14 Day [place]) nifedipine 90 mg tablet,extended 90 mg PO BID #180 tab-caps 12/12/21 11/29/22 release 24 hr losartan 100 mg tablet 100 mg PO DAILY #90 tab-caps 01/15/22 11/29/22 albuterol sulfate 90 mcg/actuation 2 puff inhalation BID PRN dyspnea 08/23/22 11/29/22 aerosol inhaler (Ventolin HFA) aspirin 81 mg tablet,delayed 81 mg PO DAILY 08/23/22 11/29/22 release atorvastatin 40 mg tablet (Lipitor) 40 mg PO DAILY #90 tab-caps 08/23/22 11/29/22 empagliflozin 10 mg tablet 10 mg PO DAILY 08/23/22 11/29/22 (Jardiance) metformin 500 mg tablet 500 mg PO BID #180 tabs 08/23/22 11/29/22 chlorthalidone 25 mg tablet 25 mg PO DAILY #90 tab-caps 09/10/22 11/29/22 flash glucose sensor (FreeStyle #2 ea 09/10/22 11/29/22 Adama 14 Day Sensor kit) levetiracetam 500 mg tablet 1,000 mg PO BID #360 tabs 10/02/22 11/29/22 (Keppra) fluticasone propionate 110 1 puff inhalation BID 10/03/22 11/29/22 mcg/actuation HFA aerosol inhaler (Flovent HFA) cholecalciferol (vitamin D3) 25 25 mcg PO DAILY 10/04/22 11/29/22 mcg (1,000 unit) capsule insulin glargine 100 unit/mL (3 44 unit (0.44 mL) subcut QAM #15 mL 10/16/22 11/29/22 mL) subcutaneous pen (Lantus Solostar U-100 Insulin) tamsulosin 0.4 mg capsule 0.4 mg PO QHS #90 caps 10/30/22 11/29/22 rivaroxaban 2.5 mg tablet (Xarelto) 2.5 mg PO BID #180 tabs 11/25/22 11/29/22 guanfacine 1 mg tablet 0.5 mg PO QHS #14 tabs 12/04/22 Previous Rx's Medication Instructions Recorded flash glucose scanning reader #1 ea 01/01/19 (FreeStyle Adama 14 Day [place]) nifedipine 90 mg tablet,extended 90 mg PO BID #180 tab-caps 12/12/21 release 24 hr losartan 100 mg tablet 100 mg PO DAILY #90 tab-caps 01/15/22 atorvastatin 40 mg tablet (Lipitor) 40 mg PO DAILY #90 tab-caps 08/23/22 metformin 500 mg tablet 500 mg PO BID #180 tabs 08/23/22 chlorthalidone 25 mg tablet 25 mg PO DAILY #90 tab-caps 09/10/22 flash glucose sensor (FreeStyle #2 ea 09/10/22 Adama 14 Day Sensor kit) levetiracetam 500 mg tablet 1,000 mg PO BID #360 tabs 10/02/22 (Keppra) insulin glargine 100 unit/mL (3 44 unit (0.44 mL) subcut QAM #15 mL 10/16/22 mL) subcutaneous pen (Lantus Solostar U-100 Insulin) tamsulosin 0.4 mg capsule 0.4 mg PO QHS #90 caps 10/30/22 rivaroxaban 2.5 mg tablet (Xarelto) 2.5 mg PO BID #180 tabs 11/25/22 guanfacine 1 mg tablet 0.5 mg PO QHS #14 tabs 12/04/22 Allergies Allergy/AdvReac Type Severity Reaction Status Date / Time metformin AdvReac Intermediate Diarrhea Verified 12/04/22 11:42 General Stated Complaint: Urinary JIM: 4 PFSH All Active Problems (Updated 12/04/22 @ 13:53 by ANTHONY Ribeiro) Asthma (Chronic 06/24/12) Cerebrovascular accident (CVA) due to thrombosis of middle cerebral artery (Chronic 09/12/15) Essential hypertension (Chronic 12/10/12) Peripheral vascular disease (Chronic 03/28/16) Status post blilateral femoral artery stents. 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 Social History Smoking/Tobacco Use Status: Former Tobacco Use Quit Date: 02/24/89 Tobacco: How many years used: 15 Smoking risk assessment performed?: Yes Alcohol Intake: never Drug use: Never Substance use type: does not use Caregiver/Support person: No Household members: spouse Housing: apartment Communication Needs: None Do you need help understanding health information?: Never Pets and animals: Yes Pets and animals: dog(s) Sexually active: Yes Do you think of yourself as: straight/heterosexual Current gender identity: male What is your relationship status?: How often do you talk on the phone with friends or family?: three or more times per week How often do you get together with friends or relatives?: three or more times per week How often do you attend muslim or yazidism services?: 1-3 times per year Do you belong to any clubs or organized social groups?: yes Panel score (0-1 are the most socially isolated patients): 3 What type of physical activity do you participate in: decline to answer Duration: decline to answer Frequency: decline to answer [place]/Latter-Day: Cheondoism Special marina needs: No Seatbelt use: always Helmet use: Yes Helmet use: always Drive intox or ride w/intox laundry route driver: No Do you feel safe at home: Yes Do you feel safe in your relationship?: Yes Course Vital Signs Vital signs: Vital Signs Temperature 37.0 C 12/04/22 11:38 Pulse 76 12/04/22 11:38 Respiratory Rate 20 12/04/22 11:38 Blood Pressure 147/86 H 12/04/22 11:38 Pulse Oximetry 99 12/04/22 11:38 Temperature 37.0 C 12/04/22 11:38 Pulse 76 12/04/22 11:38 Respiratory Rate 20 12/04/22 11:38 Respiratory Effort Normal 12/04/22 11:42 Blood Pressure 147/86 H 12/04/22 11:38 Blood Pressure Position Supine 12/04/22 11:38 Pulse Oximetry 99 12/04/22 11:38 Oxygen Delivery Method Room Air 12/04/22 11:38 Oxygen Flow Rate 0 12/04/22 11:38 Pain Level 2 12/04/22 11:38 Lab/Test Results Lab/Test Results: Laboratory Tests Range/Units 12/04/22 12:55 Urine Color (Yellow) Yellow Urine Clarity (Clear) Clear Urine pH (5-8) 5.0 Ur Specific [place] (1.005-1.025) 1.020 Urine Protein (Negative) mg/dL 100 H Urine Ketones (Negative) mg/dL Negative Urine Blood (Negative) Trace-intact H Urine Nitrite (Negative) Negative Urine Bilirubin (Negative) Negative Urine Urobilinogen (Up to 0.2) mg/dL 0.2 Ur Leukocyte Esterase (Negative) Negative Urine RBC (0-2) HPF 3-5 H Urine WBC (0-5) HPF 3-5 Ur Epithelial Cells (Negative) HPF Rare Urine Crystals (Negative) HPF Negative Urine Bacteria (Negative) HPF Rare Urine Casts (Negative) LPF Negative Urine Mucus (Negative) Negative Ur Culture Indicated? No Urine Glucose (Negative) mg/dL >=1000 H
== END 2022-12-04 14:18 | disposition home or self-care (01) ==
PROVIDERS: Emergency Provider Physician Assistant; PCP Family Medicine
DX: R30.0 Dysuria (principal)
CPT/HCPCS: 51798; 99283; 81003; 81015; 99284

== ENCOUNTER 2023-02-28 12:10 | Outpatient (CLI) | payer MEDICAID, SELFPAY ==
[2023-02-28 11:26] LABS: Hemoglobin A1C 7.1 % (<5.7)
[2023-02-28 11:45] LABS: ALT 34 U/L (16-63); AST 12 U/L (15-37); Albumin 3.8 g/dL (3.4-5.0); Alkaline Phosphatase 145 U/L (46-116); Anion Gap 5.1 mmol/L (3-11); BUN 27 mg/dL (7-18); Bilirubin, Total 0.4 mg/dL (0.2-1.0); CO2 31.9 mmol/L (21.0-32.0); CREATININE 0.9 mg/dL (0.70-1.30); Calcium 10.8 mg/dL (8.5-10.1); Chloride 99 mmol/L (98-107); Estimated GFR 95.37 (mL/min/1.73m2); Glucose 373 mg/dL (74-106); Potassium 3.4 mmol/L (3.5-5.1); Sodium 136 mmol/L (136-145); Total Protein 7.6 g/dL (6.4-8.2)
[2023-02-28 13:06] LABS: Vitamin D 25 Total 29.1 ng/mL (30-100)
== END 2023-02-28 12:11 | disposition home or self-care (01) ==
LOC: LBO 12:10
PROVIDERS: PCP Family Medicine; Visit Provider Family Medicine
DX: E83.52 Hypercalcemia (principal); Z00.00 Encounter for general adult medical examination without abnormal findings; R73.01 Impaired fasting glucose
CPT/HCPCS: 36415; 80053; 82306; 83036

== ENCOUNTER 2023-07-19 16:32 | Emergency (ER) | payer MEDICARE, SELFPAY ==
[2023-07-19 16:40] VITALS: BP 238/78; PULSE 89; RESP 20; TEMP 37.2; O2SAT 99
--- NOTE | 2023-07-19 16:47 | ED.GENADUL_ITS ---
Discharge Plan Disposition Patient Disposition: Home Condition: Stable Discharge Details Clinical Impression: Blister of great toe of left foot Primary Care Provider: Cesilia Santiago ED Provider: Rajiv Moody Home Meds and New Rx's Prescriptions: New cephalexin 500 mg capsule 500 mg PO QID 5 Days Qty: 20 0RF Continued empagliflozin 25 mg tablet 25 mg PO DAILY Qty: 90 3RF Patient Comments: TAKE ONE TABLET BY MOUTH EVERY DAY albuterol sulfate [Ventolin HFA] 90 mcg/actuation HFA aerosol inhaler 2 puff inhalation BID PRN (Reason: dyspnea) atorvastatin [Lipitor] 40 mg tablet 40 mg PO DAILY Qty: 90 4RF aspirin 81 mg tablet,delayed release (DR/EC) 81 mg PO DAILY metformin 500 mg tablet 500 mg PO BID Qty: 180 3RF (DME) FreeStyle Adama 14 Day [place] Misc See Rx Instructions .ROUTE .MEDSUPPLY Qty: 1 4RF Rx Instructions: Check blood sugar 4 times a day (DME) FreeStyle Adama 14 Day Sensor Kit See Rx Instructions .ROUTE .MEDSUPPLY Qty: 2 8RF Rx Instructions: Check blood sugar 4 times a day insulin lispro [Humalog Tempo Pen(U-100)Insuln] 100 unit/mL insulin pen 5 unit subcut TID Qty: 15 3RF fluticasone propionate [Flovent HFA] 110 mcg/actuation HFA aerosol inhaler 1 puff inhalation BID Patient Comments: INHALE 1 PUFF TWO TIMES A DAY DIRECTED insulin glargine [Lantus Solostar U-100 Insulin] 100 unit/mL (3 mL) insulin pen 44 unit subcut QAM Qty: 15 12RF losartan 100 mg tablet 100 mg PO DAILY Qty: 90 3RF nifedipine 90 mg tablet extended release 24hr 90 mg PO BID Qty: 180 3RF (DME) prosthetic leg and prosthetic supplies See Rx Instructions .Route .MEDSUPPLY Qty: 1 12RF Rx Instructions: As directed chlorthalidone 25 mg tablet 25 mg PO DAILY Qty: 90 4RF cholecalciferol (vitamin D3) 25 mcg (1,000 unit) capsule 25 mcg PO DAILY Xarelto 2.5 mg tablet 2.5 mg PO BID Qty: 180 4RF levetiracetam [Keppra] 500 mg tablet 1,000 mg PO BID Qty: 360 1RF finasteride 5 mg tablet 5 mg PO DAILY Qty: 90 3RF tamsulosin 0.4 mg capsule 0.4 mg PO QHS Qty: 90 1RF Discharge Instructions Instructions: Cephalexin (By mouth), Blister (ED) Additional Instructions: You were seen in the emergency department for a large blister on the ball of your left foot. Please change the wound dressing and moleskin at least twice a day for the next 1 to 2 weeks. You may have to use multiple layers of moleskin to elevate enough so that a bandage is not rubbing the blister while it is covered. You may use bacitracin as well as intermittent use of A+D ointment. Due to your high risk of foot infection due to your longstanding diabetes and contralateral amputation I am placing you on a prophylactic course of Keflex for 5 days. This was sent to [facility] in [place]. I would like you to watch your wound very closely and follow-up with your wound care provider [facility] should you suspect any complications or ongoing, please return to the ED for signs of severe infection like purulent pus draining from the wound, redness spreading up the foot, red streaking up the leg, fever, weakness. Referrals: Cesilia Santiago MD [Primary Care Provider] - Discharge Data Discharge Date/Time-TO BE ENTERED AT DEPARTURE: 07/19/23 17:38 HPI General Date/Time Provider Initiated Documentation: 07/19/23 16:35 . HPI Narrative: 63 year-old male presents to ED today by POV/ambulating with a chief complaint of blister to the ball of his L foot- has prior amputation to R lower leg due to diabetes with onset noted after doing yardwork today. Quality described as raw skin over reddened blister, no radiation to purulent drainage, large swelling, erythema spreading to proximal foot, has baseline neuropathhy. Severity is described as mild. Palliating factors include nothing specific attempted. Provoking factors include nothing specific. Patient is anticoagulated on Xarelto. Related Data Home Medications Medication Instructions Recorded Confirmed albuterol sulfate 90 mcg/actuation 2 puff inhalation BID PRN dyspnea 08/23/22 07/19/23 aerosol inhaler (Ventolin HFA) aspirin 81 mg tablet,delayed 81 mg PO DAILY 08/23/22 07/19/23 release atorvastatin 40 mg tablet (Lipitor) 40 mg PO DAILY #90 tab-caps 08/23/22 07/19/23 metformin 500 mg tablet 500 mg PO BID #180 tabs 08/23/22 07/19/23 chlorthalidone 25 mg tablet 25 mg PO DAILY #90 tab-caps 09/10/22 07/19/23 fluticasone propionate 110 1 puff inhalation BID 10/03/22 07/19/23 mcg/actuation HFA aerosol inhaler (Flovent HFA) cholecalciferol (vitamin D3) 25 25 mcg PO DAILY 10/04/22 07/19/23 mcg (1,000 unit) capsule rivaroxaban 2.5 mg tablet (Xarelto) 2.5 mg PO BID #180 tabs 11/25/22 07/19/23 insulin glargine 100 unit/mL (3 44 unit (0.44 mL) subcut QAM #15 mL 12/24/22 07/19/23 mL) subcutaneous pen (Lantus Solostar U-100 Insulin) losartan 100 mg tablet 100 mg PO DAILY #90 tab-caps 12/24/22 07/19/23 nifedipine 90 mg tablet,extended 90 mg PO BID #180 tab-caps 12/24/22 07/19/23 release 24 hr prosthetic leg and prosthetic #1 ea 12/25/22 06/27/23 supplies flash glucose scanning reader #1 ea 02/28/23 06/27/23 (FreeStyle Adama 14 Day [place]) flash glucose sensor (FreeStyle #2 ea 02/28/23 06/27/23 Adama 14 Day Sensor kit) insulin lispro 100 unit/mL 5 unit (0.05 mL) subcut TID #15 mL 02/28/23 07/19/23 subcutaneous pen (Humalog Tempo Pen (U-100) Insulin) levetiracetam 500 mg tablet 1,000 mg (2 x 500 mg) PO BID #360 03/31/23 07/19/23 (Keppra) tabs finasteride 5 mg tablet 5 mg PO DAILY #90 tabs 04/08/23 07/19/23 tamsulosin 0.4 mg capsule 0.4 mg PO QHS #90 caps 05/12/23 07/19/23 empagliflozin 25 mg tablet 25 mg PO DAILY #90 tabs 06/27/23 07/19/23 cephalexin 500 mg capsule 500 mg PO QID prophylaxis 5 days 07/19/23 #20 caps Previous Rx's Medication Instructions Recorded atorvastatin 40 mg tablet (Lipitor) 40 mg PO DAILY #90 tab-caps 08/23/22 metformin 500 mg tablet 500 mg PO BID #180 tabs 08/23/22 chlorthalidone 25 mg tablet 25 mg PO DAILY #90 tab-caps 09/10/22 rivaroxaban 2.5 mg tablet (Xarelto) 2.5 mg PO BID #180 tabs 11/25/22 insulin glargine 100 unit/mL (3 44 unit (0.44 mL) subcut QAM #15 mL 12/24/22 mL) subcutaneous pen (Lantus Solostar U-100 Insulin) losartan 100 mg tablet 100 mg PO DAILY #90 tab-caps 12/24/22 nifedipine 90 mg tablet,extended 90 mg PO BID #180 tab-caps 12/24/22 release 24 hr prosthetic leg and prosthetic #1 ea 12/25/22 supplies flash glucose scanning reader #1 ea 02/28/23 (FreeStyle Adama 14 Day [place]) flash glucose sensor (FreeStyle #2 ea 02/28/23 Adama 14 Day Sensor kit) insulin lispro 100 unit/mL 5 unit (0.05 mL) subcut TID #15 mL 02/28/23 subcutaneous pen (Humalog Tempo Pen (U-100) Insulin) levetiracetam 500 mg tablet 1,000 mg (2 x 500 mg) PO BID #360 03/31/23 (Keppra) tabs finasteride 5 mg tablet 5 mg PO DAILY #90 tabs 04/08/23 tamsulosin 0.4 mg capsule 0.4 mg PO QHS #90 caps 05/12/23 empagliflozin 25 mg tablet 25 mg PO DAILY #90 tabs 06/27/23 cephalexin 500 mg capsule 500 mg PO QID prophylaxis 5 days 07/19/23 #20 caps Allergies Allergy/AdvReac Type Severity Reaction Status Date / Time metformin AdvReac Intermediate Diarrhea Verified 07/19/23 16:58 General Stated Complaint: Cellulitis JIM: 3 Review of Systems All systems reviewed & are unremarkable except as noted in HPI and below Exam Narrative Exam Narrative: GENERAL APPEARANCE: Well-nourished, non-toxic, awake and alert, atraumatic, no acute distress. SKIN: Warm, pink, dry, 2 x 2 centimeter blister at the medial aspect of plantar base of great toe of left foot, no purulent drainage, blister has already popped, no proximal significant ulcerations, no swelling or erythema or lymphadenitis to the left foot HEAD: Normocephalic, atraumatic, normal hair distribution for gender/age. EYES: Pupils PERRLA, EOMs intact without nystagmus, normal conjunctiva, no exudates on lids/lashes. ENT: Nares patent, no circumoral cyanosis, no facial swelling NECK: Supple, trachea midline, painless cervical ROM. LUNGS/CHEST: Non-labored respirations, normal A/P diameter, symmetrical expansion, no chest wall deformity HEART (CV/PV): Regular rate, L dorsalis pedis pulse 2+, no peripheral edema, no JVD. ABDOMEN: Soft, non-distended, no guarding. MSK: Normal ROM, no swelling/deformity to bilateral UEs or LEs, moving all extremities without weakness, no cyanosis, spine midline without tenderness, normal curvature. NEURO: Mental Status AAOx4 - alert to person, place, time, events No facial droop, no forehead involvement. Motor: No focal weakness - strength 5/5 in bilateral UEs and LEs, proximal and distal, symmetric. Sensory: sensation intact to light touch globally. Gait normal: patient ambulated without ataxia into ED room. PSYCH: euthymic, cooperative, pleasant, appropriate speech Course Vital Signs Vital signs: Vital Signs Temperature 37.2 C 07/19/23 16:40 Pulse 89 07/19/23 16:40 Respiratory Rate 20 07/19/23 16:40 Blood Pressure 238/78 H 07/19/23 16:40 Pulse Oximetry 99 07/19/23 16:40 Temperature 37.2 C 07/19/23 16:40 Temperature Source Tympanic 07/19/23 16:40 Pulse 89 07/19/23 16:40 Respiratory Rate 20 07/19/23 16:40 Blood Pressure 238/78 H 07/19/23 16:40 Blood Pressure Position Sitting 07/19/23 16:40 Pulse Oximetry 99 07/19/23 16:40 Oxygen Delivery Method Room Air 07/19/23 16:40 Oxygen Flow Rate 0 07/19/23 16:40 Medical Decision Making This dictation utilizes [id number] dictation software and may contain unedited grammatical errors. 63 y/o M presents to ED today with a chief complaint of blister to L ball of foot at base of 1st toe- doing yardwork, has diabetes, contralateral amputation- onset noticed today. Patient denies significant pain, no purulent drainage or large swelling. Patients' medical history: History of left ischemic stroke, diabetic foot ulcers, right below-knee amputation, status post femoral-popliteal bypass surgery, hypertension, asthma, seizure disorder. Family and social history: Noncontributory. Pertinent exam findings / vital signs include SKIN: Warm, pink, dry, 2 x 2 centimeter blister at the medial aspect of plantar base of great toe of left foot, no purulent drainage, blister has already popped, no proximal significant ulcerations, no swelling or erythema or lymphadenitis to the left foot. Differential / pathologies of concern include blister, early cellulitis, unlikely sepsis, no sign of neurovascular compromise. Diagnostic studies of: -None. Interventions of: -Wound care with simple moleskin dressings, prophylactic antibiotics. ED Course/Assessment/Plan: 63-year-old male with complicated history of diabetes and right below-knee amputation presents with a blister on the ball of his left foot after performing yard work. This area of blister did unroofed itself already. It was dressed with bacitracin and moleskin dressing, he was counseled extensively on how to care for this at home, I recommended that he follow-up with his prior wound care provider -and take prophylactic antibiotics due to his high risk of complication. The patient verbalized understanding of this plan, strict return criteria for worsening signs of infection, redness spreading up the leg, purulent drainage, fever. Findings not consistent with neurovascular compromise, cellulitis, abscess. Disposition of blister of great toe of left foot. Patient verbalized understanding of the plan and return to ED criteria and engaged in shared decision making. Medical Records Medical records reviewed: Yes I reviewed the patient's medical records. Quality:[facility] Health Related Social Needs: No Data to Display PFSH All Active Problems (Updated 07/19/23 @ 17:07 by ANTHONY Shane) Blister of great toe of left foot (Acute) BPH loc w urin obs/LUTS (Acute) Hypercalcemia (Acute) Diabetes mellitus with insulin therapy (Acute) Type 2 diabetes mellitus with peripheral vascular disease (Acute) Status post below knee amputation of right lower extremity (Acute) Anticoagulated (Acute) on xarelto due to h/o PAD Nocturia (Acute) Seizure disorder (Chronic) Had 2 seizures since CVA Peripheral vascular disease (Chronic 03/28/16) Status post blilateral femoral artery stents. 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 Social History (Updated 12/24/22 @ 08:05 by Cesilia Santiago MD) Smoking/Tobacco Use Status: Former Tobacco Use Quit Date: 02/24/89 Tobacco: How many years used: 15 Smoking risk assessment performed?: Yes Alcohol Intake: never Drug use: Never Substance use type: does not use Caregiver/Support person: No Household members: spouse and none Housing: apartment Communication Needs: None Do you need help understanding health information?: Never Pets and animals: Yes Pets and animals: dog(s) Sexually active: Yes Do you think of yourself as: straight/heterosexual Current gender identity: male What is your relationship status?: How often do you talk on the phone with friends or family?: three or more times per week How often do you get together with friends or relatives?: three or more times per week How often do you attend confucianist or quaker services?: 1-3 times per year Do you belong to any clubs or organized social groups?: yes Panel score (0-1 are the most socially isolated patients): 2 What type of physical activity do you participate in: decline to answer Duration: decline to answer Frequency: decline to answer Marina/Samaritan: Samaritan Special marina needs: No Seatbelt use: always Helmet use: Yes Helmet use: always Drive intox or ride w/intox operator and truck driver: No Do you feel safe at home: Yes Do you feel safe in your relationship?: Yes
[2023-07-19 16:57] VITALS: BP 238/78; PULSE 89; RESP 20; TEMP 37.2; O2SAT 99
[2023-07-19 17:15] VITALS: BP 182/94; PULSE 72; RESP 16; O2SAT 98
[2023-07-19 17:35] VITALS: BP 182/94; PULSE 72; RESP 16; O2SAT 98
--- NOTE | 2023-07-19 17:37 | NUR.NOTE ---
Nursing Note: provider performed wound care to left foot. verbal and written instructions were given to patient prior to DC. Patient tolerated wound care well.
== END 2023-07-19 17:38 | disposition home or self-care (01) ==
PROVIDERS: Emergency Provider Physician Assistant; PCP Family Medicine
DX: S90.422A Blister (nonthermal), left great toe, initial encounter; X58.XXXA Exposure to other specified factors, initial encounter; Y93.H2 Activity, gardening and landscaping; E11.40 Type 2 diabetes mellitus with diabetic neuropathy, unspecified; Z79.4 Long term (current) use of insulin; Z89.511 Acquired absence of right leg below knee; Z98.62 Peripheral vascular angioplasty status; I10 Essential (primary) hypertension; J45.909 Unspecified asthma, uncomplicated; G40.909 Epilepsy, unspecified, not intractable, without status epilepticus; Z79.01 Long term (current) use of anticoagulants; Z79.899 Other long term (current) drug therapy
CPT/HCPCS: 99283; 99284

== ENCOUNTER → 2023-07-28 10:08 | Outpatient (BNVA) | payer MEDICARE, SELFPAY | PROVIDERS: PCP Family Medicine; Referring Provider Family Medicine; Visit Provider Podiatrist | DX: L97.522 Non-pressure chronic ulcer of other part of left foot with fat layer exposed; I83.029 Varicose veins of left lower extremity with ulcer of unspecified site; I83.892 Varicose veins of left lower extremity with other complications; R60.0 Localized edema; I70.203 Unspecified atherosclerosis of native arteries of extremities, bilateral legs; E11.51 Type 2 diabetes mellitus with diabetic peripheral angiopathy without gangrene; Z89.511 Acquired absence of right leg below knee; E11.40 Type 2 diabetes mellitus with diabetic neuropathy, unspecified; E11.621 Type 2 diabetes mellitus with foot ulcer; L97.922 Non-pressure chronic ulcer of unspecified part of left lower leg with fat layer exposed | CPT/HCPCS: 11042 ==

== ENCOUNTER 2023-07-28 11:10 | Emergency (ER) | payer MEDICARE, SELFPAY ==
[2023-07-28 11:11] VITALS: BP 163/73; PULSE 92; RESP 18; TEMP 37.7; O2SAT 96
--- NOTE | 2023-07-28 11:27 | ED.GENADUL_ITS ---
Discharge Plan Disposition Patient Disposition: Home Condition: Serious Discharge Details Clinical Impression: Cellulitis of left lower leg, Diabetic ulcer of foot with fat layer exposed Primary Care Provider: Cesilia Santiago ED Provider: Jada Kasper Meds and New Rx's Prescriptions: New clindamycin HCl 150 mg capsule 300 mg PO BID 10 Days Qty: 40 0RF Rx Instructions: 2 capsules by mouth twice daily for the next 10 days Continued empagliflozin 25 mg tablet 25 mg PO DAILY Qty: 90 3RF Patient Comments: TAKE ONE TABLET BY MOUTH EVERY DAY albuterol sulfate [Ventolin HFA] 90 mcg/actuation HFA aerosol inhaler 2 puff inhalation BID PRN (Reason: dyspnea) atorvastatin [Lipitor] 40 mg tablet 40 mg PO DAILY Qty: 90 4RF aspirin 81 mg tablet,delayed release (DR/EC) 81 mg PO DAILY metformin 500 mg tablet 500 mg PO BID Qty: 180 3RF (DME) FreeStyle Aadma 14 Day Sterling Misc See Rx Instructions .ROUTE .MEDSUPPLY Qty: 1 4RF Rx Instructions: Check blood sugar 4 times a day (DME) FreeStyle Adama 14 Day Sensor Kit See Rx Instructions .ROUTE .MEDSUPPLY Qty: 2 8RF Rx Instructions: Check blood sugar 4 times a day insulin lispro [Humalog Tempo Pen(U-100)Insuln] 100 unit/mL insulin pen 5 unit subcut TID Qty: 15 3RF fluticasone propionate [Flovent HFA] 110 mcg/actuation HFA aerosol inhaler 1 puff inhalation BID PRN Patient Comments: INHALE 1 PUFF TWO TIMES A DAY DIRECTED main use in winter time insulin glargine [Lantus Solostar U-100 Insulin] 100 unit/mL (3 mL) insulin pen 44 unit subcut QAM Qty: 15 12RF losartan 100 mg tablet 100 mg PO DAILY Qty: 90 3RF nifedipine 90 mg tablet extended release 24hr 90 mg PO BID Qty: 180 3RF (DME) prosthetic leg and prosthetic supplies See Rx Instructions .Route .MEDSUPPLY Qty: 1 12RF Rx Instructions: As directed amoxicillin-pot clavulanate 875-125 mg tablet 1 tab PO BID 10 Days Qty: 20 0RF furosemide 20 mg tablet 20 mg PO DAILY 7 Days Qty: 7 0RF chlorthalidone 25 mg tablet 25 mg PO DAILY Qty: 90 4RF cholecalciferol (vitamin D3) 25 mcg (1,000 unit) capsule 25 mcg PO DAILY Xarelto 2.5 mg tablet 2.5 mg PO BID Qty: 180 4RF levetiracetam [Keppra] 500 mg tablet 1,000 mg PO BID Qty: 360 1RF finasteride 5 mg tablet 5 mg PO DAILY Qty: 90 3RF tamsulosin 0.4 mg capsule 0.4 mg PO QHS Qty: 90 1RF Discharge Instructions Instructions: Cellulitis (ED), Chronic Wound Care (ED) Additional Instructions: Please keep your appointment as previously scheduled with podiatry next Friday. Please change her dressings as instructed daily. Keep clean and dry. Please continue taking the Augmentin as previously scheduled, we are going to give you clindamycin in addition. Please take as prescribed. Please return to the ER if the redness extends past the drawn line after 3 days of additional antibiotic. Referrals: Migdalia Sy DPM [[facility] STAFF PHYSICIAN] - 08/05/23 (As previously scheduled ) HPI General Mode of arrival: ambulatory . Date/Time Provider Initiated Documentation: 07/28/23 11:11 . Limitations to Documentation: no limitations . Information obtained by: patient, RN notes reviewed and old records reviewed . HPI Narrative: 63-year-old male presents to the ER after being referred here by podiatry for further evaluation and treatment of his left lower extremity. He does have a history of diabetic ulcer and right BKA. He does have a diabetic ulcer noted to his left plantar surface of his foot and a wound to his left calf which has been draining. He was seen just prior to arrival and had wounds debrided. He denies any fever or chills. He was seen here on Friday given 5 days of cephalexin, which he took one day of, and placed on Augmentin 2 days ago for 10 days. Past medical history includes type 2 diabetes mellitus, peripheral vascular disease, right BKA, left sided ischemic stroke, status post femoral-popliteal bypass surgery, hypertension asthma seizure disorder. He reports that he is sent over here for x-rays. His temp is 37.7 ?C heart rate 92. He does have his left lower extremity dressed by podiatry. Related Data Home Medications Medication Instructions Recorded Confirmed albuterol sulfate 90 mcg/actuation 2 puff inhalation BID PRN dyspnea 08/23/22 07/28/23 aerosol inhaler (Ventolin HFA) aspirin 81 mg tablet,delayed 81 mg PO DAILY 08/23/22 07/28/23 release atorvastatin 40 mg tablet (Lipitor) 40 mg PO DAILY #90 tab-caps 08/23/22 07/28/23 metformin 500 mg tablet 500 mg PO BID #180 tabs 08/23/22 07/28/23 chlorthalidone 25 mg tablet 25 mg PO DAILY #90 tab-caps 09/10/22 07/28/23 fluticasone propionate 110 1 puff inhalation BID PRN 10/03/22 07/28/23 mcg/actuation HFA aerosol inhaler (Flovent HFA) cholecalciferol (vitamin D3) 25 25 mcg PO DAILY 10/04/22 07/28/23 mcg (1,000 unit) capsule rivaroxaban 2.5 mg tablet (Xarelto) 2.5 mg PO BID #180 tabs 11/25/22 07/28/23 insulin glargine 100 unit/mL (3 44 unit (0.44 mL) subcut QAM #15 mL 12/24/22 07/28/23 mL) subcutaneous pen (Lantus Solostar U-100 Insulin) losartan 100 mg tablet 100 mg PO DAILY #90 tab-caps 12/24/22 07/28/23 nifedipine 90 mg tablet,extended 90 mg PO BID #180 tab-caps 12/24/22 07/28/23 release 24 hr prosthetic leg and prosthetic #1 ea 12/25/22 07/28/23 supplies flash glucose scanning reader #1 ea 02/28/23 07/28/23 (FreeStyle Adama 14 Day Sterling) flash glucose sensor (FreeStyle #2 ea 02/28/23 07/28/23 Adama 14 Day Sensor kit) insulin lispro 100 unit/mL 5 unit (0.05 mL) subcut TID #15 mL 02/28/23 07/28/23 subcutaneous pen (Humalog Tempo Pen (U-100) Insulin) levetiracetam 500 mg tablet 1,000 mg (2 x 500 mg) PO BID #360 03/31/23 07/28/23 (Keppra) tabs finasteride 5 mg tablet 5 mg PO DAILY #90 tabs 04/08/23 07/28/23 tamsulosin 0.4 mg capsule 0.4 mg PO QHS #90 caps 05/12/23 07/28/23 empagliflozin 25 mg tablet 25 mg PO DAILY #90 tabs 06/27/23 07/28/23 amoxicillin 875 mg-potassium 1 tab PO BID 10 days #20 tabs 07/25/23 07/28/23 clavulanate 125 mg tablet furosemide 20 mg tablet 20 mg PO DAILY 1 week #7 tabs 07/25/23 07/28/23 clindamycin HCl 150 mg capsule 300 mg (2 x 150 mg) PO BID 07/28/23 Diabetic Ulcer 10 days #40 caps Previous Rx's Medication Instructions Recorded atorvastatin 40 mg tablet (Lipitor) 40 mg PO DAILY #90 tab-caps 08/23/22 metformin 500 mg tablet 500 mg PO BID #180 tabs 08/23/22 chlorthalidone 25 mg tablet 25 mg PO DAILY #90 tab-caps 09/10/22 rivaroxaban 2.5 mg tablet (Xarelto) 2.5 mg PO BID #180 tabs 11/25/22 insulin glargine 100 unit/mL (3 44 unit (0.44 mL) subcut QAM #15 mL 12/24/22 mL) subcutaneous pen (Lantus Solostar U-100 Insulin) losartan 100 mg tablet 100 mg PO DAILY #90 tab-caps 12/24/22 nifedipine 90 mg tablet,extended 90 mg PO BID #180 tab-caps 12/24/22 release 24 hr prosthetic leg and prosthetic #1 ea 12/25/22 supplies flash glucose scanning reader #1 ea 02/28/23 (FreeStyle Adama 14 Day Sterling) flash glucose sensor (FreeStyle #2 ea 02/28/23 Adama 14 Day Sensor kit) insulin lispro 100 unit/mL 5 unit (0.05 mL) subcut TID #15 mL 02/28/23 subcutaneous pen (Humalog Tempo Pen (U-100) Insulin) levetiracetam 500 mg tablet 1,000 mg (2 x 500 mg) PO BID #360 03/31/23 (Keppra) tabs finasteride 5 mg tablet 5 mg PO DAILY #90 tabs 04/08/23 tamsulosin 0.4 mg capsule 0.4 mg PO QHS #90 caps 05/12/23 empagliflozin 25 mg tablet 25 mg PO DAILY #90 tabs 06/27/23 amoxicillin 875 mg-potassium 1 tab PO BID 10 days #20 tabs 07/25/23 clavulanate 125 mg tablet furosemide 20 mg tablet 20 mg PO DAILY 1 week #7 tabs 07/25/23 clindamycin HCl 150 mg capsule 300 mg (2 x 150 mg) PO BID 07/28/23 Diabetic Ulcer 10 days #40 caps Allergies Allergy/AdvReac Type Severity Reaction Status Date / Time metformin AdvReac Mild Diarrhea Verified 07/28/23 13:05 General Stated Complaint: Cellulitis JIM: 3 Review of Systems All systems reviewed & are unremarkable except as noted in HPI and below Constitutional Constitutional: Denies chills and Denies fever(s) (DENIES) Cardiovascular Cardiovascular: Denies chest pain, Denies rapid heart rate and Reports leg edema Gastrointestinal Gastrointestinal: Denies diarrhea, Denies nausea and Denies vomiting Musculoskeletal Musculoskeletal: Reports as per HPI Integumentary/Breasts Skin/Breast: Reports as per HPI, Reports erythema, Reports skin pain, Reports skin swelling, Reports skin ulcer and Reports wounds Exam Narrative Exam Narrative: Constitutional: Alert and oriented x3. Appears stated age. Overweight body habitus. Head: Normocephalic, no trauma. Eyes: Pupils PERRL, Eyelids symmetrical without lesions, discharge, or swelling. ENT: External ear normal to inspection, , no nasal discharge. Dentures noted Chest: RRR, Normal S1, S2, distal pulses intact. Resp: Lungs clear to auscultation bilaterally, no wheezes, rales, or rhonchi. Musculoskeletal: Right BKA, prosthetic noted, left lower extremity, see diagram below. Skin: Capillary refill less than 2 sec. Neurologic: Cranial nerves II-XII intact. Alert and oriented x 3. Motor: No deficits noted. Sensory: Decreased to the left foot, Hematologic/Lymphatic: No ecchymosis, no lymphadenopathy. Extrem Upper/lower leg/hip images: 2 1. Right BKA 2. Erythema extending up to mid calf, 3. 2 superficial wounds extending down through the epidermis Ankle/foot/toe images: 2 1. Diabetic ulcer noted, suspect stage I which has been debrided from previous podiatry visit. Some bleeding noted with removal of dressing from Radiology. Course Vital Signs Vital signs: Vital Signs Temperature 37.7 C H 07/28/23 11:11 Pulse 92 H 07/28/23 11:11 Respiratory Rate 18 07/28/23 11:11 Blood Pressure 163/73 H 07/28/23 11:11 Pulse Oximetry 96 07/28/23 11:11 Temperature 37.7 C H 07/28/23 11:11 Temperature Source Skin 07/28/23 11:11 Pulse 92 H 07/28/23 11:11 Respiratory Rate 18 07/28/23 11:11 Respiratory Effort Normal, Non-Labored 07/28/23 11:15 Blood Pressure 163/73 H 07/28/23 11:11 Blood Pressure Position Sitting 07/28/23 11:11 Pulse Oximetry 96 07/28/23 11:11 Oxygen Delivery Method Room Air 07/28/23 11:11 Oxygen Flow Rate 0 07/28/23 11:11 Pain Level 0 07/28/23 11:11 Lab/Test Results Lab/Test Results: 07/28/23 11:15 Blood Blood Culture - Pending 07/28/23 11:15 Blood Blood Culture - Pending Medical Decision Making 63-year-old male presents to the ER after being referred here by podiatry for further evaluation and treatment of his left lower extremity. He does have a history of diabetic ulcer and right BKA. He does have a diabetic ulcer noted to his left plantar surface of his foot and a wound to his left calf which has been draining. He was seen just prior to arrival and had wounds debrided. He denies any fever or chills. He was seen here on Friday given 5 days of cephalexin, which he took one day of, and placed on Augmentin 2 days ago for 10 days. Past medical history includes type 2 diabetes mellitus, peripheral vascular disease, right BKA, left sided ischemic stroke, status post femoral-popliteal bypass surgery, hypertension asthma seizure disorder. He reports that he is sent over here for x-rays. His temp is 37.7 ?C heart rate 92. He does have his left lower extremity dressed by podiatry. Cellulitis workup ordered including CBC CMP ESR CRP blood cultures x 2, x-ray of left foot and tib-fib ordered. Will give a gram of Rocephin IV piggyback and consult with podiatry. 1130: Podiatry paged. 1224: Podiatry repaged, called to voicemail. Potassium 2.8, given 40 mill equivalents p.o. liquid and 10 mill-equivalents IV piggyback. 1236: Spoke with Dr. Sy with podiatry, discussed patient case in details she verbalized understanding. Discussed labs. She recommends clindamycin as outpatient and she will see him in clinic next week as previously scheduled. 1324: On further discussion with patient and family his mother is at the bedside after shared decision making it is been determined that hospitalization may be what is best at this time as patient is home alone previous amputee and has to do dressing changes once daily. I will call hospitalist to discuss admission for left lower extremity cellulitis. X-ray shows no subcutaneous emphysema, no signs of osteomyelitis. 1334: Spoke with Dr. Jameson, he states patient does not meet admission criteria at this time. I will send him home with clindamycin 300mg PO BID x 10 days after the potassium infusion is complete. With instructions to follow-up as previously scheduled with podiatry on Friday. Discussed with staff home therapy rn to dress the wounds with honey dressings. Discussed return instructions to return after 3 days if the erythema extends above the line. Discussed plan with patient and family who verbalized understanding. All their questions were answered to the best of my ability, he was given topical Medihoney care for his wounds discussed wound care at home. This text was generated using [employer] system, please disregard any oddities of phrase or misspellings. Medical Records Medical records reviewed: Yes I reviewed the patient's medical records. Medical records narrative: Reviewed podiatry notes from today. Also reviewed images. Lab Data Lab results reviewed: Yes I reviewed the patient's lab results. Labs: 07/28/23 11:50 Blood Blood Culture - Pending 07/28/23 11:15 Blood Blood Culture - Pending Laboratory Tests Range/Units 07/28/23 11:50 WBC (4.4-10.8) 10^3/uL 10.65 RBC (4.36-5.78) 10^6/uL 5.23 Hgb (13.5-17.5) g/dL 14.7 Hct (40.0-50.0) % 43.8 MCV (80-95) fL 84 MCH (27.0-33.0) pg 28.1 MCHC (32.0-36.0) % 33.6 RDW (11.8-14.1) % 13.2 Plt Count (130-400) 10^3/uL 259 MPV (8.0-11.0) fL 10.0 Immature Gran % % 0.4 Neutrophils % % 70.5 Lymphocytes % % 17.8 Monocytes % % 5.6 Eosinophils % % 5.0 Basophils % % 0.7 Nucleated RBC % (0.0-0.3) % 0.0 Absolute Neutrophils (1.2-6.7) 10^3/uL 7.51 H Absolute Lymphocytes (1.2-3.4) 10^3/uL 1.90 Absolute Monocytes (0.1-0.8) 10^3/uL 0.60 Absolute Eosinophils (0.0-0.7) 10^3/uL 0.53 Absolute Basophils (0.0-0.2) 10^3/uL 0.07 ESR (0-20) mm/hr 22 H VBG Lactate (0.6-1.4) mmol/L 1.7 H Sodium (136-145) mmol/L 143 Potassium (3.5-5.1) mmol/L 2.8 L* Chloride (98-107) mmol/L 99 Carbon Dioxide (21.0-32.0) mmol/L 33.2 H Anion Gap (3-11) mmol/L 10.8 BUN (7-18) mg/dL 24 H Creatinine (0.70-1.30) mg/dL 1.0 Est GFR (CKD-EPI 2020) (mL/min/1.73m2) 83.52 Glucose (74-106) mg/dL 143 H Calcium (8.5-10.1) mg/dL 10.9 H Magnesium (1.8-2.4) mg/dL 1.8 Total Bilirubin (0.2-1.0) mg/dL 0.4 AST (15-37) U/L 15 ALT (16-63) U/L 30 Alkaline Phosphatase (46-116) U/L 110 C-Reactive Protein (<or=0.5) mg/dL 1.92 H Total Protein (6.4-8.2) g/dL 7.7 Albumin (3.4-5.0) g/dL 4.0 Quality:SDOH Health Related Social Needs: 2 No Data to Display PFSH All Active Problems (Updated 07/28/23 @ 13:28 by Jada Kasper NP) Diabetic ulcer of foot with fat layer exposed (Acute) Cellulitis of left lower leg (Acute) Type 2 diabetes mellitus with left diabetic foot ulcer (Acute) Diabetes mellitus with neuropathy (Acute) Atherosclerosis of artery of both lower extremities (Acute) Below-knee amputation of right lower extremity (Acute) Venous stasis ulcer of left lower leg with edema of left lower leg (Acute) Ulcer of left lower extremity with fat layer exposed (Acute) Ulcer of left foot with fat layer exposed (Acute) Blister of great toe of left foot (Acute) BPH loc w urin obs/LUTS (Acute) Hypercalcemia (Acute) Diabetes mellitus with insulin therapy (Acute) Type 2 diabetes mellitus with peripheral vascular disease (Acute) Status post below knee amputation of right lower extremity (Acute) Anticoagulated (Acute) on xarelto due to h/o PAD Nocturia (Acute) Seizure disorder (Chronic) Had 2 seizures since CVA Peripheral vascular disease (Chronic 03/28/16) Status post blilateral femoral artery stents. 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 Social History Smoking/Tobacco Use Status: Former Tobacco Use Quit Date: 02/24/89 Tobacco: How many years used: 15 Smoking risk assessment performed?: Yes Alcohol Intake: never Drug use: Never Substance use type: does not use Caregiver/Support person: No Household members: spouse and none Housing: apartment Communication Needs: None Do you need help understanding health information?: Never Pets and animals: Yes Pets and animals: dog(s) Sexually active: Yes Do you think of yourself as: straight/heterosexual Current gender identity: male What is your relationship status?: How often do you talk on the phone with friends or family?: three or more times per week How often do you get together with friends or relatives?: three or more times per week How often do you attend mandaen or jain services?: 1-3 times per year Do you belong to any clubs or organized social groups?: yes Panel score (0-1 are the most socially isolated patients): 2 What type of physical activity do you participate in: decline to answer Duration: decline to answer Frequency: decline to answer Marina/Yazidism: Gnosticism Special marina needs: No Seatbelt use: always Helmet use: Yes Helmet use: always Drive intox or ride w/intox subway train driver: No Do you feel safe at home: Yes Do you feel safe in your relationship?: Yes
[2023-07-28 11:57] LABS: Lactate 1.7 mmol/L (0.6-1.4)
[2023-07-28 11:59] LABS: Abs Immature Grans 0.04 10^3/uL (0.0-0.06); Absolute Basophil Count 0.07 10^3/uL (0.0-0.2); Absolute Eosinophil Count 0.53 10^3/uL (0.0-0.7); Absolute Neutrophil Count 7.51 10^3/uL (1.2-6.7); Basophils % 0.7 %; HCT 43.8 % (40.0-50.0); HGB 14.7 g/dL (13.5-17.5); Immature Grans % 0.4 %; Lymphocytes % 17.8 %; MCH 28.1 pg (27.0-33.0); MCHC 33.6 % (32.0-36.0); MCV 84 fL (80-95); Monocytes % 5.6 %; Neutrophils % 70.5 %; Platelet Count 259 10^3/uL (130-400); RBC 5.23 10^6/uL (4.36-5.78); RDW 13.2 % (11.8-14.1); RDW-SD 40.3 fL; WBC 10.65 10^3/uL (4.4-10.8)
[2023-07-28 12:09] LABS: ESR 22 mm/hr (0-20)
[2023-07-28 12:16] LABS: ALT 30 U/L (16-63); AST 15 U/L (15-37); Alkaline Phosphatase 110 U/L (46-116); Anion Gap 10.8 mmol/L (3-11); BUN 24 mg/dL (7-18); Bilirubin, Total 0.4 mg/dL (0.2-1.0); C-Reactive Protein 1.92 mg/dL (<or=0.5); CO2 33.2 mmol/L (21.0-32.0); Calcium 10.9 mg/dL (8.5-10.1); Chloride 99 mmol/L (98-107); Estimated GFR 83.52 (mL/min/1.73m2); Glucose 143 mg/dL (74-106); Magnesium 1.8 mg/dL (1.8-2.4); Sodium 143 mmol/L (136-145); Total Protein 7.7 g/dL (6.4-8.2)
[2023-07-28 12:17] LABS: Potassium 2.8 mmol/L (3.5-5.1)
--- NOTE | 2023-07-28 12:27 | DI.RAD_ITS ---
Exam(s) XR FOOT LT COMPLETE EXAM: XR FOOT LT COMPLETE CLINICAL HISTORY: Diabetic wound. TECHNIQUE: 2D digital imaging was performed of the left foot. Three images were obtained. AP, obli que and lateral views were obtained. COMPARISON: CR,XR XR TOE LT SECOND from 02/14/2020 FINDINGS: BONES: No acute fracture is present. No bony destructive lesion is seen. There is an enthesophyte at the posterior calcaneus. There is a small plantar calcaneal spur. JOINTS: No dislocation present. Since the prior examination, the patient has had an amputation of the 2nd toe at the level of the 2nd metatarsophalangeal joint. SOFT TISSUE: Dystrophic calcifications are seen in the soft tissues. IMPRESSION: 1. No acute fracture or dislocation. 2. No radiographic evidence to suggest osteomyelitis at this time. DATA REPOSITORY: RADIATION DOSE DELIVERED:
--- NOTE | 2023-07-28 12:27 | DI.RAD_ITS ---
Exam(s) XR TIB/FIB LT EXAM: XR TIB/FIB LT CLINICAL HISTORY: wound, R/O gas. TECHNIQUE: 2D digital imaging was performed of the left tibia and fibula. Four images were obtained. AP and lateral views were obtained. COMPARISON: No exams were available for comparison FINDINGS: BONES: No acute fracture is present. No bony destructive lesion is seen. The patient has a left total knee replacement. Enthesophytes are seen at the anterior patella. SOFT TISSUE: Atherosclerotic calcification is seen. There is a vascular stent seen posterior to the femur. Surgical clips are seen posterior to the tibia. No soft tissue gas is identified. IMPRESSION: No radiographic evidence to suggest acute osteomyelitis. DATA REPOSITORY: RADIATION DOSE DELIVERED:
[2023-07-28] MEDS: Normal Saline 250 ML IV (12:42)
[2023-07-28] MEDS: POTASSIUM CHLORIDE 10 MEQ/100 ML BAG 100 MEQ IVINF (12:42)
[2023-07-28] MEDS: Normal Saline Flush 10 ML SYR IVP (12:43)
[2023-07-28] MEDS: Potassium Chloride Liquid 20 MEQ PKT 40 MEQ PO (12:43)
[2023-07-28] MEDS: Clindamycin 150 MG CAP 450 MG PO (12:48)
[2023-07-28] MEDS: cefTRIAXone 1 GM/50 ML BAG IVPB (12:48)
[2023-07-28 13:05] VITALS: BP 134/55; PULSE 70; RESP 18; TEMP 36.2; O2SAT 98
[2023-07-28 14:51] VITALS: BP 171/61; PULSE 70; RESP 20; TEMP 36.2; O2SAT 97
== END 2023-07-28 14:54 | disposition home or self-care (01) ==
PROVIDERS: Emergency Provider Registered Nurse Emergency; PCP Family Medicine
DX: L03.116 Cellulitis of left lower limb (principal); E11.621 Type 2 diabetes mellitus with foot ulcer; L97.422 Non-pressure chronic ulcer of left heel and midfoot with fat layer exposed; I10 Essential (primary) hypertension; I73.9 Peripheral vascular disease, unspecified; Z86.73 Personal history of transient ischemic attack (TIA), and cerebral infarction without residual deficits; Z89.511 Acquired absence of right leg below knee; Z79.82 Long term (current) use of aspirin; Z79.4 Long term (current) use of insulin; Z79.84 Long term (current) use of oral hypoglycemic drugs; Z79.01 Long term (current) use of anticoagulants; Z87.891 Personal history of nicotine dependence
CPT/HCPCS: 11042; 36415; 80053; 85652; 87040; 96365; 96368; 99284; 73590; 73630; 83605; 83735; 85025; 86140; J0696; J3480

== ENCOUNTER 2023-07-28 11:37 | Outpatient (REF) | payer MEDICARE, SELFPAY | END 2023-07-28 11:38 | disposition home or self-care (01) | LOC: LBN 11:37 | PROVIDERS: PCP Family Medicine; Visit Provider Podiatrist | DX: S90.422D Blister (nonthermal), left great toe, subsequent encounter; X58.XXXA Exposure to other specified factors, initial encounter | CPT/HCPCS: 87077; 87070; 87075; 87186; 87205 ==

== ENCOUNTER 2023-09-22 18:25 | Outpatient (REF) | payer OTHER, SELFPAY ==
[2023-09-22 13:53] LABS: ALT 40 U/L (16-63); AST 59 U/L (15-37); Albumin 2.9 g/dL (3.4-5.0); Alkaline Phosphatase 93 U/L (46-116); BUN 26 mg/dL (7-18); Bilirubin, Total 0.61 mg/dL (0.2-1.0); Calcium 9.8 mg/dL (8.5-10.1); Calculated LDL 39 mg/dL (<100); Chloride 98 mmol/L (98-107); Cholesterol 92 mg/dL (<200); Estimated GFR 83.52 (mL/min/1.73m2); Glucose 278 mg/dL (74-106); HDL Cholesterol 28 mg/dL (40-60); Potassium 3.4 mmol/L (3.5-5.1); Sodium 137 mmol/L (136-145); Total Protein 6.2 g/dL (6.4-8.2); Triglyceride 128 mg/dL (<150)
[2023-09-22 14:03] LABS: Hemoglobin A1C 8.5 % (<5.7)
== END 2023-09-22 18:26 | disposition home or self-care (01) ==
LOC: LBN 18:25
PROVIDERS: PCP Nurse Practitioner Family; Visit Provider Nurse Practitioner Family
DX: I10 Essential (primary) hypertension (principal); E78.5 Hyperlipidemia, unspecified; E11.9 Type 2 diabetes mellitus without complications; D51.3 Other dietary vitamin B12 deficiency anemia; D64.9 Anemia, unspecified
CPT/HCPCS: 80053; 80061; 83036

== ENCOUNTER 2023-09-24 15:59 | Outpatient (CLI) | payer OTHER, SELFPAY ==
[2023-09-24 15:44] LABS: Abs Immature Grans 0.06 10^3/uL (0.0-0.06); Absolute Basophil Count 0.07 10^3/uL (0.0-0.2); Absolute Lymphocyte Count 2.24 10^3/uL (1.2-3.4); Absolute Monocyte Count 0.32 10^3/uL (0.1-0.8); Absolute Neutrophil Count 10.45 10^3/uL (1.2-6.7); Basophils % 0.5 %; Eosinophils % 0.8 %; HCT 45.1 % (40.0-50.0); HGB 14.2 g/dL (13.5-17.5); Immature Grans % 0.5 %; Lymphocytes % 16.9 %; MCH 26.4 pg (27.0-33.0); MCHC 31.5 % (32.0-36.0); MCV 84 fL (80-95); MPV 10.3 fL (8.0-11.0); Monocytes % 2.4 %; Neutrophils % 78.9 %; Platelet Count 326 10^3/uL (130-400); RBC 5.38 10^6/uL (4.36-5.78); RDW 13.1 % (11.8-14.1); RDW-SD 39.8 fL; WBC 13.24 10^3/uL (4.4-10.8)
[2023-09-24 15:49] LABS: Prothrombin Time 10.3 sec (9.1-11.1)
[2023-09-24 16:14] LABS: Absolute Eosinophil Count 0.11 10^3/uL (0.0-0.7)
[2023-09-24 17:02] LABS: ALT 45 U/L (16-63); AST 32 U/L (15-37); Albumin 3.4 g/dL (3.4-5.0); Alkaline Phosphatase 155 U/L (46-116); BUN 27 mg/dL (7-18); CO2 28.9 mmol/L (21.0-32.0); CREATININE 1.2 mg/dL (0.70-1.30); Calcium 11.4 mg/dL (8.5-10.1); Chloride 101 mmol/L (98-107); Estimated GFR 67.11 (mL/min/1.73m2); Glucose 289 mg/dL (74-106); Total Protein 7.4 g/dL (6.4-8.2)
[2023-09-24 17:07] LABS: Anion Gap 14.1 mmol/L (3-11); Sodium 144 mmol/L (136-145)
[2023-09-24 17:08] LABS: C-Reactive Protein > 25.00 mg/dL (<or=0.5); Potassium 4.4 mmol/L (3.5-5.1)
== END 2023-09-24 16:00 | disposition home or self-care (01) ==
LOC: LBO 16:02
PROVIDERS: PCP Nurse Practitioner Family; Visit Provider Nurse Practitioner Family
DX: R65.21 Severe sepsis with septic shock (principal); Z03.821 Encounter for observation for suspected ingested foreign body ruled out
CPT/HCPCS: 36415; 80053; 85025; 85610; 86140

== ENCOUNTER 2023-09-26 11:26 | Inpatient (IN) | payer OTHER, SELFPAY ==
[2023-09-26] VITALS (24 sets, daily range): BP systolic 109–146; BP diastolic 39–75; PULSE 73–103; RESP 15–24; TEMP 36.6–38.7; O2SAT 87–97
--- NOTE | 2023-09-26 12:24 | W.ED.GENAD ---
Discharge Plan Disposition Patient Disposition: Admit to [facility] Condition: Stable Discharge Details Clinical Impression: Sepsis Admit Date/Time: 09/26/23 14:25 Admit Provider: Karlos Lopez Attending Provider: Karlos Lopez Primary Care Provider: Karey Kennedy ED Provider: Rajiv Moody HPI General Date/Time Provider Initiated Documentation: 09/26/23 11:43. HPI Narrative: 63 year-old male presents to ED today by POV/ambulating with antalgic gait, prior R LE amputation with a chief complaint of states his PCP sent him to get bloodwork as she said he may be jaundiced- he is febrile on arrival, being treated for a severe chronic R plantar diabetic food wound, with onset chronically. Quality described as stoic- does not endorse any focal syndrome, no radiation to chest pain, cough, abdominal pain, nausea/vomiting, states he has been drinking a lot of water and urinating a lot. Severity is described as mild. Palliating factors include nothing specific. Provoking factors include nothing specific. Patient is anticoagulated. Related Data Home Medications ?Medication ?Instructions ?Recorded ?Confirmed albuterol sulfate 90 mcg/actuation 2 puff inhalation BID PRN dyspnea 08/23/22 09/26/23 aerosol inhaler (Ventolin HFA) aspirin 81 mg tablet,delayed 81 mg PO DAILY 08/23/22 09/26/23 release atorvastatin 40 mg tablet (Lipitor) 40 mg PO DAILY #90 tab-caps 08/23/22 09/26/23 metformin 500 mg tablet 500 mg PO BID #180 tabs 08/23/22 09/26/23 chlorthalidone 25 mg tablet 25 mg PO DAILY #90 tab-caps 09/10/22 09/26/23 fluticasone propionate 110 1 puff inhalation BID PRN 10/03/22 07/28/23 mcg/actuation HFA aerosol inhaler (Flovent HFA) cholecalciferol (vitamin D3) 25 25 mcg PO DAILY 10/04/22 09/26/23 mcg (1,000 unit) capsule rivaroxaban 2.5 mg tablet (Xarelto) 2.5 mg PO BID #180 tabs 11/25/22 09/26/23 insulin glargine 100 unit/mL (3 44 unit (0.44 mL) subcut QAM #15 mL 12/24/22 09/26/23 mL) subcutaneous pen (Lantus Solostar U-100 Insulin) losartan 100 mg tablet 100 mg PO DAILY #90 tab-caps 12/24/22 09/26/23 nifedipine 90 mg tablet,extended 90 mg PO BID #180 tab-caps 12/24/22 07/28/23 release 24 hr prosthetic leg and prosthetic #1 ea 12/25/22 09/26/23 supplies flash glucose scanning reader #1 ea 02/28/23 09/26/23 (FreeStyle Adama 14 Day [place]) flash glucose sensor (FreeStyle #2 ea 02/28/23 09/26/23 Adama 14 Day Sensor kit) insulin lispro 100 unit/mL 5 unit (0.05 mL) subcut TID #15 mL 02/28/23 07/28/23 subcutaneous pen (Humalog Tempo Pen (U-100) Insulin) levetiracetam 500 mg tablet 1,000 mg (2 x 500 mg) PO BID #360 03/31/23 09/26/23 (Keppra) tabs finasteride 5 mg tablet 5 mg PO DAILY #90 tabs 04/08/23 07/28/23 tamsulosin 0.4 mg capsule 0.4 mg PO QHS #90 caps 05/12/23 07/28/23 empagliflozin 25 mg tablet 25 mg PO DAILY #90 tabs 06/27/23 07/28/23 empagliflozin 10 mg tablet 10 mg PO DAILY 09/26/23 09/26/23 (Jardiance) furosemide 20 mg tablet 20 mg PO DAILY 09/26/23 09/26/23 guanfacine 2 mg tablet 2 mg PO HS 09/26/23 09/26/23 oxybutynin chloride 5 mg tablet 10 mg PO HS 09/26/23 09/26/23 sertraline 50 mg tablet 50 mg PO DAILY 09/26/23 09/26/23 Previous Rx's ?Medication ?Instructions ?Recorded atorvastatin 40 mg tablet (Lipitor) 40 mg PO DAILY #90 tab-caps 08/23/22 metformin 500 mg tablet 500 mg PO BID #180 tabs 08/23/22 chlorthalidone 25 mg tablet 25 mg PO DAILY #90 tab-caps 09/10/22 rivaroxaban 2.5 mg tablet (Xarelto) 2.5 mg PO BID #180 tabs 11/25/22 insulin glargine 100 unit/mL (3 44 unit (0.44 mL) subcut QAM #15 mL 12/24/22 mL) subcutaneous pen (Lantus Solostar U-100 Insulin) losartan 100 mg tablet 100 mg PO DAILY #90 tab-caps 12/24/22 nifedipine 90 mg tablet,extended 90 mg PO BID #180 tab-caps 12/24/22 release 24 hr prosthetic leg and prosthetic #1 ea 12/25/22 supplies flash glucose scanning reader #1 ea 02/28/23 (FreeStyle Adama 14 Day [place]) flash glucose sensor (FreeStyle #2 ea 02/28/23 Adama 14 Day Sensor kit) insulin lispro 100 unit/mL 5 unit (0.05 mL) subcut TID #15 mL 02/28/23 subcutaneous pen (Humalog Tempo Pen (U-100) Insulin) levetiracetam 500 mg tablet 1,000 mg (2 x 500 mg) PO BID #360 03/31/23 (Keppra) tabs finasteride 5 mg tablet 5 mg PO DAILY #90 tabs 04/08/23 tamsulosin 0.4 mg capsule 0.4 mg PO QHS #90 caps 05/12/23 empagliflozin 25 mg tablet 25 mg PO DAILY #90 tabs 06/27/23 Allergies Allergy/AdvReac Type Severity Reaction Status Date / Time metformin AdvReac Mild Diarrhea Verified 09/26/23 11:36 General Stated Complaint: Cellulitis JIM: 2 Review of Systems All systems reviewed & are unremarkable except as noted in HPI and below Exam Narrative Exam Narrative: GENERAL APPEARANCE: Well-nourished, toxic, awake and alert, atraumatic, mild acute distress. SKIN: Warm, pink, diaphoretic, intact, without rashes/lesions/ulcerations. HEAD: Normocephalic, atraumatic, normal hair distribution for gender/age. EYES: Normal conjunctiva, no exudates on lids/lashes. ENT: Nares patent, no circumoral cyanosis, no facial swelling NECK: Supple, trachea midline, painless cervical ROM. LUNGS/CHEST: Lungs CTA bilaterally- no overt rhonchi/rales/wheezes diffusely, non-labored respirations, normal A/P diameter, symmetrical expansion, no chest wall deformity HEART (CV/PV): Regular rate and rhythm without murmur, no peripheral edema, no JVD. ABDOMEN: Soft, non-distended, no guarding, no tenderness. MSK: Normal ROM, no swelling/deformity to bilateral UEs or LEs, moving all extremities without weakness, no cyanosis, spine midline without tenderness, normal curvature. L LE: refusing to take down dressing, no erythema spreading up the leg, scar present from fem-pop bypass, no lymphadenitis, able to walk on it NEURO: Mental Status AAOx4 - alert to person, place, time, events No facial droop, no forehead involvement. Motor: No focal weakness - strength 5/5 in bilateral UEs and LEs, proximal and distal, symmetric. Sensory: sensation intact to light touch globally. Gait NT. PSYCH: euthymic, cooperative, pleasant, appropriate speech Course Vital Signs Vital signs: Vital Signs Temperature 38.3 C H 09/26/23 11:32 Pulse 103 H 09/26/23 11:32 Respiratory Rate 18 09/26/23 11:32 Blood Pressure 109/44 L 09/26/23 11:32 Pulse Oximetry 96 09/26/23 11:32 Temperature 38.7 C H 09/26/23 12:22 Temperature Source Tympanic 09/26/23 12:22 Pulse 95 H 09/26/23 12:22 Respiratory Rate 22 09/26/23 12:22 Blood Pressure 146/57 H 09/26/23 12:22 Pulse Oximetry 95 09/26/23 12:22 Oxygen Delivery Method Room Air 09/26/23 12:22 Oxygen Flow Rate 0 09/26/23 12:22 Pain Level 0 09/26/23 12:22 Medical Decision Making This dictation utilizes [id number] dictation software and may contain unedited grammatical errors. 63 year-old male presents to ED today by POV/ambulating with antalgic gait, prior R LE amputation with a chief complaint of states his PCP sent him to get bloodwork as she said he may be jaundiced- he is febrile on arrival, being treated for a severe chronic R plantar diabetic food wound, with onset chronically. Quality described as stoic- does not endorse any focal syndrome, no radiation to chest pain, cough, abdominal pain, nausea/vomiting, states he has been drinking a lot of water and urinating a lot. Severity is described as mild. Palliating factors include nothing specific. Provoking factors include nothing specific. Patients' medical history: Diabetic foot ulcer, history of ischemic left MCA stroke, below-knee right amputation, status post femoral-popliteal bypass surgery on the left lower extremity, T2DM, neuropathy, venous stasis ulcers, BPH with outflow obstruction, long-term anticoagulation, peripheral vascular disease, hypertension, asthma, seizure disorder. 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 Pertinent exam findings / vital signs include no overt erythema spreading up the left lower extremity, lungs CTA, benign abdomen, febrile, hypotensive on arrival that quickly resolved with IV fluids, patient is refusing to take down the dressing on his left lower extremity. Differential / pathologies of concern include sepsis, secondary to diabetic foot wound of left lower extremity, COPD exacerbation or pneumonia. Diagnostic studies of: -CBC, CMP, VBG, lactate, procalcitonin, CRP/ESR, lipase, UA, blood cultures. -CBC shows a leukocytosis to 20.3 with a left shift, chronic anemia -VBG shows no acidosis -Lactate 1.6, procalcitonin 4.9 - sepsis -CRP severely elevated 15 -XR Chest shows no PNA Interventions of: -IV fluids, patient was noted to be 88% on room air and was given a DuoNeb and started on 2 L O2 which is not his baseline. He received IV cefepime and vancomycin. -Consulted with hospitalist for likely admission, patient will likely need podiatry consults for his chronic diabetic foot ulcer, I do think he likely needs amputation based on the pictures his mother showed me, was refusing to take down the bandage until just prior to admission ED Course/Assessment/Plan: 63-year-old male with prior right amputation due to chronic diabetic foot wounds with status post left femoral-popliteal bypass and a chronic ongoing left plantar severe diabetic foot ulceration shows up with hypotension and fever, appears weak, his provider had recommended he get labs for jaundice though I do suspect they are more concerned with sepsis. He has significant markers of sepsis, was requiring oxygen without signs of respiratory infection though he is quite stoic about endorsing symptoms. Was found not to be in diabetic ketoacidosis, will be admitted for sepsis with likely podiatry consult, patient will likely refuse any recommendation of amputation but does want IV antibiotics for sepsis, Dr. Mendez accepted the patient for admission. Findings not consistent with DKA. Disposition of Sepsis. Patient verbalized understanding of the plan and return to ED criteria and engaged in shared decision making. Medical Records Medical records reviewed: Yes I reviewed the patient's medical records. Lab Data Lab results reviewed: Yes I reviewed the patient's lab results. Labs: 09/26/23 13:06 Blood Blood Culture - Pending 09/26/23 12:40 Blood Blood Culture - Pending Laboratory Tests Range/Units 09/26/23 09/26/23 09/26/23 12:34 12:40 12:40 WBC (4.4-10.8) 10^3/uL 20.30 H RBC (4.36-5.78) 10^6/uL 4.59 Hgb (13.5-17.5) g/dL 12.2 L D Hct (40.0-50.0) % 37.1 L MCV (80-95) fL 81 MCH (27.0-33.0) pg 26.6 L MCHC (32.0-36.0) % 32.9 RDW (11.8-14.1) % 13.1 Plt Count (130-400) 10^3/uL 278 MPV (8.0-11.0) fL 10.2 Immature Gran % % 0.7 Neutrophils % % 88.3 Lymphocytes % % 5.1 Monocytes % % 5.4 Eosinophils % % 0.2 Basophils % % 0.3 Nucleated RBC % (0.0-0.3) % 0.0 Absolute Neutrophils (1.2-6.7) 10^3/uL 17.92 H Absolute Lymphocytes (1.2-3.4) 10^3/uL 1.04 L Absolute Monocytes (0.1-0.8) 10^3/uL 1.10 H Absolute Eosinophils (0.0-0.7) 10^3/uL 0.04 Absolute Basophils (0.0-0.2) 10^3/uL 0.06 VBG pH Cancelled 7.46 H VBG pCO2 Cancelled 46 VBG pO2 Cancelled 33 VBG HCO3 Cancelled 32 H VBG Total CO2 Cancelled 29 VBG O2 Saturation Cancelled 63 VBG Base Excess Cancelled 9 H VBG Lactate (0.6-1.4) mmol/L 1.6 H Sodium (136-145) mmol/L 134 L Cancelled Potassium (3.5-5.1) mmol/L 3.4 L D Chloride (98-107) mmol/L Carbon Dioxide (21.0-32.0) mmol/L Anion Gap (3-11) mmol/L BUN (7-18) mg/dL Creatinine (0.70-1.30) mg/dL Est GFR (CKD-EPI 2020) (mL/min/1.73m2) Glucose (74-106) mg/dL Calcium (8.5-10.1) mg/dL Magnesium (1.8-2.4) mg/dL Total Bilirubin (0.2-1.0) mg/dL Conjugated Bilirubin (0.0-0.2) mg/dL AST (15-37) U/L ALT (16-63) U/L Alkaline Phosphatase (46-116) U/L C-Reactive Protein (<or=0.5) mg/dL Total Protein (6.4-8.2) g/dL Albumin (3.4-5.0) g/dL Lipase (16-77) U/L Procalcitonin ng/mL Urine Color (Yellow) Urine Clarity (Clear) Urine pH (5-8) Ur Specific [place] (1.005-1.025) Urine Protein (Neg-Trace) mg/dL Urine Ketones (Negative) mg/dL Urine Blood (Negative) Urine Nitrite (Negative) Urine Bilirubin (Negative) Urine Urobilinogen (Up to 0.2) mg/dL Ur Leukocyte Esterase (Negative) Urine RBC (0-2) HPF Urine WBC (0-5) HPF Ur Epithelial Cells (Negative) HPF Urine Crystals (Negative) HPF Urine Bacteria (Negative) HPF Urine Casts (Negative) LPF Urine Mucus (Negative) Ur Culture Indicated? Urine Glucose (Negative) mg/dL Range/Units 09/26/23 09/26/23 09/26/23 12:40 12:40 12:40 WBC (4.4-10.8) 10^3/uL RBC (4.36-5.78) 10^6/uL Hgb (13.5-17.5) g/dL Hct (40.0-50.0) % MCV (80-95) fL MCH (27.0-33.0) pg MCHC (32.0-36.0) % RDW (11.8-14.1) % Plt Count (130-400) 10^3/uL MPV (8.0-11.0) fL Immature Gran % % Neutrophils % % Lymphocytes % % Monocytes % % Eosinophils % % Basophils % % Nucleated RBC % (0.0-0.3) % Absolute Neutrophils (1.2-6.7) 10^3/uL Absolute Lymphocytes (1.2-3.4) 10^3/uL Absolute Monocytes (0.1-0.8) 10^3/uL Absolute Eosinophils (0.0-0.7) 10^3/uL Absolute Basophils (0.0-0.2) 10^3/uL VBG pH VBG pCO2 VBG pO2 VBG HCO3 VBG Total CO2 VBG O2 Saturation VBG Base Excess VBG Lactate (0.6-1.4) mmol/L Sodium (136-145) mmol/L Potassium (3.5-5.1) mmol/L Cancelled Chloride (98-107) mmol/L 94 L Cancelled Carbon Dioxide (21.0-32.0) mmol/L 33.2 H Cancelled Anion Gap (3-11) mmol/L 6.8 BUN (7-18) mg/dL Creatinine (0.70-1.30) mg/dL Est GFR (CKD-EPI 2020) (mL/min/1.73m2) Glucose (74-106) mg/dL Calcium (8.5-10.1) mg/dL Magnesium (1.8-2.4) mg/dL Total Bilirubin (0.2-1.0) mg/dL Conjugated Bilirubin (0.0-0.2) mg/dL AST (15-37) U/L ALT (16-63) U/L Alkaline Phosphatase (46-116) U/L C-Reactive Protein (<or=0.5) mg/dL Total Protein (6.4-8.2) g/dL Albumin (3.4-5.0) g/dL Lipase (16-77) U/L Procalcitonin ng/mL Urine Color (Yellow) Urine Clarity (Clear) Urine pH (5-8) Ur Specific [place] (1.005-1.025) Urine Protein (Neg-Trace) mg/dL Urine Ketones (Negative) mg/dL Urine Blood (Negative) Urine Nitrite (Negative) Urine Bilirubin (Negative) Urine Urobilinogen (Up to 0.2) mg/dL Ur Leukocyte Esterase (Negative) Urine RBC (0-2) HPF Urine WBC (0-5) HPF Ur Epithelial Cells (Negative) HPF Urine Crystals (Negative) HPF Urine Bacteria (Negative) HPF Urine Casts (Negative) LPF Urine Mucus (Negative) Ur Culture Indicated? Urine Glucose (Negative) mg/dL Range/Units 09/26/23 09/26/23 09/26/23 12:40 12:40 12:40 WBC (4.4-10.8) 10^3/uL RBC (4.36-5.78) 10^6/uL Hgb (13.5-17.5) g/dL Hct (40.0-50.0) % MCV (80-95) fL MCH (27.0-33.0) pg MCHC (32.0-36.0) % RDW (11.8-14.1) % Plt Count (130-400) 10^3/uL MPV (8.0-11.0) fL Immature Gran % % Neutrophils % % Lymphocytes % % Monocytes % % Eosinophils % % Basophils % % Nucleated RBC % (0.0-0.3) % Absolute Neutrophils (1.2-6.7) 10^3/uL Absolute Lymphocytes (1.2-3.4) 10^3/uL Absolute Monocytes (0.1-0.8) 10^3/uL Absolute Eosinophils (0.0-0.7) 10^3/uL Absolute Basophils (0.0-0.2) 10^3/uL VBG pH VBG pCO2 VBG pO2 VBG HCO3 VBG Total CO2 VBG O2 Saturation VBG Base Excess VBG Lactate (0.6-1.4) mmol/L Sodium (136-145) mmol/L Potassium (3.5-5.1) mmol/L Chloride (98-107) mmol/L Carbon Dioxide (21.0-32.0) mmol/L Anion Gap (3-11) mmol/L Cancelled BUN (7-18) mg/dL 20 H Cancelled Creatinine (0.70-1.30) mg/dL 1.0 Cancelled Est GFR (CKD-EPI 2020) (mL/min/1.73m2) 83.52 Glucose (74-106) mg/dL Calcium (8.5-10.1) mg/dL Magnesium (1.8-2.4) mg/dL Total Bilirubin (0.2-1.0) mg/dL Conjugated Bilirubin (0.0-0.2) mg/dL AST (15-37) U/L ALT (16-63) U/L Alkaline Phosphatase (46-116) U/L C-Reactive Protein (<or=0.5) mg/dL Total Protein (6.4-8.2) g/dL Albumin (3.4-5.0) g/dL Lipase (16-77) U/L Procalcitonin ng/mL Urine Color (Yellow) Urine Clarity (Clear) Urine pH (5-8) Ur Specific [place] (1.005-1.025) Urine Protein (Neg-Trace) mg/dL Urine Ketones (Negative) mg/dL Urine Blood (Negative) Urine Nitrite (Negative) Urine Bilirubin (Negative) Urine Urobilinogen (Up to 0.2) mg/dL Ur Leukocyte Esterase (Negative) Urine RBC (0-2) HPF Urine WBC (0-5) HPF Ur Epithelial Cells (Negative) HPF Urine Crystals (Negative) HPF Urine Bacteria (Negative) HPF Urine Casts (Negative) LPF Urine Mucus (Negative) Ur Culture Indicated? Urine Glucose (Negative) mg/dL Range/Units 09/26/23 09/26/23 09/26/23 12:40 12:40 12:40 WBC (4.4-10.8) 10^3/uL RBC (4.36-5.78) 10^6/uL Hgb (13.5-17.5) g/dL Hct (40.0-50.0) % MCV (80-95) fL MCH (27.0-33.0) pg MCHC (32.0-36.0) % RDW (11.8-14.1) % Plt Count (130-400) 10^3/uL MPV (8.0-11.0) fL Immature Gran % % Neutrophils % % Lymphocytes % % Monocytes % % Eosinophils % % Basophils % % Nucleated RBC % (0.0-0.3) % Absolute Neutrophils (1.2-6.7) 10^3/uL Absolute Lymphocytes (1.2-3.4) 10^3/uL Absolute Monocytes (0.1-0.8) 10^3/uL Absolute Eosinophils (0.0-0.7) 10^3/uL Absolute Basophils (0.0-0.2) 10^3/uL VBG pH VBG pCO2 VBG pO2 VBG HCO3 VBG Total CO2 VBG O2 Saturation VBG Base Excess VBG Lactate (0.6-1.4) mmol/L Sodium (136-145) mmol/L Potassium (3.5-5.1) mmol/L Chloride (98-107) mmol/L Carbon Dioxide (21.0-32.0) mmol/L Anion Gap (3-11) mmol/L BUN (7-18) mg/dL Creatinine (0.70-1.30) mg/dL Est GFR (CKD-EPI 2020) (mL/min/1.73m2) Cancelled Glucose (74-106) mg/dL 207 H Cancelled Calcium (8.5-10.1) mg/dL 10.4 H Cancelled Magnesium (1.8-2.4) mg/dL 1.5 L Total Bilirubin (0.2-1.0) mg/dL 0.50 Conjugated Bilirubin (0.0-0.2) mg/dL AST (15-37) U/L ALT (16-63) U/L Alkaline Phosphatase (46-116) U/L C-Reactive Protein (<or=0.5) mg/dL Total Protein (6.4-8.2) g/dL Albumin (3.4-5.0) g/dL Lipase (16-77) U/L Procalcitonin ng/mL Urine Color (Yellow) Urine Clarity (Clear) Urine pH (5-8) Ur Specific [place] (1.005-1.025) Urine Protein (Neg-Trace) mg/dL Urine Ketones (Negative) mg/dL Urine Blood (Negative) Urine Nitrite (Negative) Urine Bilirubin (Negative) Urine Urobilinogen (Up to 0.2) mg/dL Ur Leukocyte Esterase (Negative) Urine RBC (0-2) HPF Urine WBC (0-5) HPF Ur Epithelial Cells (Negative) HPF Urine Crystals (Negative) HPF Urine Bacteria (Negative) HPF Urine Casts (Negative) LPF Urine Mucus (Negative) Ur Culture Indicated? Urine Glucose (Negative) mg/dL Range/Units 09/26/23 09/26/23 09/26/23 12:40 12:40 12:40 WBC (4.4-10.8) 10^3/uL RBC (4.36-5.78) 10^6/uL Hgb (13.5-17.5) g/dL Hct (40.0-50.0) % MCV (80-95) fL MCH (27.0-33.0) pg MCHC (32.0-36.0) % RDW (11.8-14.1) % Plt Count (130-400) 10^3/uL MPV (8.0-11.0) fL Immature Gran % % Neutrophils % % Lymphocytes % % Monocytes % % Eosinophils % % Basophils % % Nucleated RBC % (0.0-0.3) % Absolute Neutrophils (1.2-6.7) 10^3/uL Absolute Lymphocytes (1.2-3.4) 10^3/uL Absolute Monocytes (0.1-0.8) 10^3/uL Absolute Eosinophils (0.0-0.7) 10^3/uL Absolute Basophils (0.0-0.2) 10^3/uL VBG pH VBG pCO2 VBG pO2 VBG HCO3 VBG Total CO2 VBG O2 Saturation VBG Base Excess VBG Lactate (0.6-1.4) mmol/L Sodium (136-145) mmol/L Potassium (3.5-5.1) mmol/L Chloride (98-107) mmol/L Carbon Dioxide (21.0-32.0) mmol/L Anion Gap (3-11) mmol/L BUN (7-18) mg/dL Creatinine (0.70-1.30) mg/dL Est GFR (CKD-EPI 2020) (mL/min/1.73m2) Glucose (74-106) mg/dL Calcium (8.5-10.1) mg/dL Magnesium (1.8-2.4) mg/dL Total Bilirubin (0.2-1.0) mg/dL Cancelled Conjugated Bilirubin (0.0-0.2) mg/dL 0.1 Cancelled AST (15-37) U/L 20 Cancelled ALT (16-63) U/L 33 Alkaline Phosphatase (46-116) U/L C-Reactive Protein (<or=0.5) mg/dL Total Protein (6.4-8.2) g/dL Albumin (3.4-5.0) g/dL Lipase (16-77) U/L Procalcitonin ng/mL Urine Color (Yellow) Urine Clarity (Clear) Urine pH (5-8) Ur Specific [place] (1.005-1.025) Urine Protein (Neg-Trace) mg/dL Urine Ketones (Negative) mg/dL Urine Blood (Negative) Urine Nitrite (Negative) Urine Bilirubin (Negative) Urine Urobilinogen (Up to 0.2) mg/dL Ur Leukocyte Esterase (Negative) Urine RBC (0-2) HPF Urine WBC (0-5) HPF Ur Epithelial Cells (Negative) HPF Urine Crystals (Negative) HPF Urine Bacteria (Negative) HPF Urine Casts (Negative) LPF Urine Mucus (Negative) Ur Culture Indicated? Urine Glucose (Negative) mg/dL Range/Units 09/26/23 09/26/23 09/26/23 12:40 12:40 12:40 WBC (4.4-10.8) 10^3/uL RBC (4.36-5.78) 10^6/uL Hgb (13.5-17.5) g/dL Hct (40.0-50.0) % MCV (80-95) fL MCH (27.0-33.0) pg MCHC (32.0-36.0) % RDW (11.8-14.1) % Plt Count (130-400) 10^3/uL MPV (8.0-11.0) fL Immature Gran % % Neutrophils % % Lymphocytes % % Monocytes % % Eosinophils % % Basophils % % Nucleated RBC % (0.0-0.3) % Absolute Neutrophils (1.2-6.7) 10^3/uL Absolute Lymphocytes (1.2-3.4) 10^3/uL Absolute Monocytes (0.1-0.8) 10^3/uL Absolute Eosinophils (0.0-0.7) 10^3/uL Absolute Basophils (0.0-0.2) 10^3/uL VBG pH VBG pCO2 VBG pO2 VBG HCO3 VBG Total CO2 VBG O2 Saturation VBG Base Excess VBG Lactate (0.6-1.4) mmol/L Sodium (136-145) mmol/L Potassium (3.5-5.1) mmol/L Chloride (98-107) mmol/L Carbon Dioxide (21.0-32.0) mmol/L Anion Gap (3-11) mmol/L BUN (7-18) mg/dL Creatinine (0.70-1.30) mg/dL Est GFR (CKD-EPI 2020) (mL/min/1.73m2) Glucose (74-106) mg/dL Calcium (8.5-10.1) mg/dL Magnesium (1.8-2.4) mg/dL Total Bilirubin (0.2-1.0) mg/dL Conjugated Bilirubin (0.0-0.2) mg/dL AST (15-37) U/L ALT (16-63) U/L Cancelled Alkaline Phosphatase (46-116) U/L 110 Cancelled C-Reactive Protein (<or=0.5) mg/dL 16.87 H Total Protein (6.4-8.2) g/dL 7.0 Cancelled Albumin (3.4-5.0) g/dL 2.8 L Lipase (16-77) U/L Procalcitonin ng/mL Urine Color (Yellow) Urine Clarity (Clear) Urine pH (5-8) Ur Specific [place] (1.005-1.025) Urine Protein (Neg-Trace) mg/dL Urine Ketones (Negative) mg/dL Urine Blood (Negative) Urine Nitrite (Negative) Urine Bilirubin (Negative) Urine Urobilinogen (Up to 0.2) mg/dL Ur Leukocyte Esterase (Negative) Urine RBC (0-2) HPF Urine WBC (0-5) HPF Ur Epithelial Cells (Negative) HPF Urine Crystals (Negative) HPF Urine Bacteria (Negative) HPF Urine Casts (Negative) LPF Urine Mucus (Negative) Ur Culture Indicated? Urine Glucose (Negative) mg/dL Range/Units 09/26/23 09/26/23 12:40 12:55 WBC (4.4-10.8) 10^3/uL RBC (4.36-5.78) 10^6/uL Hgb (13.5-17.5) g/dL Hct (40.0-50.0) % MCV (80-95) fL MCH (27.0-33.0) pg MCHC (32.0-36.0) % RDW (11.8-14.1) % Plt Count (130-400) 10^3/uL MPV (8.0-11.0) fL Immature Gran % % Neutrophils % % Lymphocytes % % Monocytes % % Eosinophils % % Basophils % % Nucleated RBC % (0.0-0.3) % Absolute Neutrophils (1.2-6.7) 10^3/uL Absolute Lymphocytes (1.2-3.4) 10^3/uL Absolute Monocytes (0.1-0.8) 10^3/uL Absolute Eosinophils (0.0-0.7) 10^3/uL Absolute Basophils (0.0-0.2) 10^3/uL VBG pH VBG pCO2 VBG pO2 VBG HCO3 VBG Total CO2 VBG O2 Saturation VBG Base Excess VBG Lactate (0.6-1.4) mmol/L Sodium (136-145) mmol/L Potassium (3.5-5.1) mmol/L Chloride (98-107) mmol/L Carbon Dioxide (21.0-32.0) mmol/L Anion Gap (3-11) mmol/L BUN (7-18) mg/dL Creatinine (0.70-1.30) mg/dL Est GFR (CKD-EPI 2020) (mL/min/1.73m2) Glucose (74-106) mg/dL Calcium (8.5-10.1) mg/dL Magnesium (1.8-2.4) mg/dL Total Bilirubin (0.2-1.0) mg/dL Conjugated Bilirubin (0.0-0.2) mg/dL AST (15-37) U/L ALT (16-63) U/L Alkaline Phosphatase (46-116) U/L C-Reactive Protein (<or=0.5) mg/dL Total Protein (6.4-8.2) g/dL Albumin (3.4-5.0) g/dL Cancelled Lipase (16-77) U/L 14 L Procalcitonin ng/mL 4.9 Urine Color (Yellow) Yellow Urine Clarity (Clear) Clear Urine pH (5-8) 5.5 Ur Specific [place] (1.005-1.025) 1.010 Urine Protein (Neg-Trace) mg/dL 100 H Urine Ketones (Negative) mg/dL Negative Urine Blood (Negative) Small H Urine Nitrite (Negative) Negative Urine Bilirubin (Negative) Negative Urine Urobilinogen (Up to 0.2) mg/dL 0.2 Ur Leukocyte Esterase (Negative) Negative Urine RBC (0-2) HPF 0-2 Urine WBC (0-5) HPF Negative Ur Epithelial Cells (Negative) HPF Rare Urine Crystals (Negative) HPF Negative Urine Bacteria (Negative) HPF Negative Urine Casts (Negative) LPF 0-2 Hyaline Urine Mucus (Negative) Negative Ur Culture Indicated? No Urine Glucose (Negative) mg/dL >=1000 H Quality:SDOH Health Related Social Needs: No Data to Display PFSH All Active Problems (Updated 09/26/23 @ 14:54 by ANTHONY Shane) Sepsis (Acute) Type 2 diabetes mellitus with left diabetic foot ulcer (Chronic) Diabetes mellitus with neuropathy (Chronic) Atherosclerosis of artery of both lower extremities (Chronic) Below-knee amputation of right lower extremity (Chronic) Venous stasis ulcer of left lower leg with edema of left lower leg (Chronic) Ulcer of left lower extremity with fat layer exposed (Chronic) Ulcer of left foot with fat layer exposed (Acute) BPH loc w urin obs/LUTS (Acute) Hypercalcemia (Acute) Diabetes mellitus with insulin therapy (Acute) Type 2 diabetes mellitus with peripheral vascular disease (Acute) Status post below knee amputation of right lower extremity (Acute) Anticoagulated (Acute) on xarelto due to h/o PAD Nocturia (Acute) Seizure disorder (Chronic) Had 2 seizures since CVA Peripheral vascular disease (Chronic 03/28/16) Status post blilateral femoral artery stents. 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 Social History Smoking/Tobacco Use Status: Former Tobacco Use Quit Date: 02/24/89 Tobacco: How many years used: 15 Smoking risk assessment performed?: Yes Alcohol Intake: never Drug use: Never Substance use type: does not use Caregiver/Support person: No Household members: spouse and none Housing: apartment Communication Needs: None Do you need help understanding health information?: Never Pets and animals: Yes Pets and animals: dog(s) Sexually active: Yes Do you think of yourself as: straight/heterosexual Current gender identity: male What is your relationship status?: How often do you talk on the phone with friends or family?: three or more times per week How often do you get together with friends or relatives?: three or more times per week How often do you attend hinduism or sabianism services?: 1-3 times per year Do you belong to any clubs or organized social groups?: yes Panel score (0-1 are the most socially isolated patients): 2 What type of physical activity do you participate in: decline to answer Duration: decline to answer Frequency: decline to answer Marina/Evangelical: Shinto Special marina needs: No Seatbelt use: always Helmet use: Yes Helmet use: always Drive intox or ride w/intox independent driver: No Do you feel safe at home: Yes Do you feel safe in your relationship?: Yes
[2023-09-26] MEDS: Normal Saline 1,000 ML 1000 ML IV (12:37)
[2023-09-26] MEDS: ACETAMINOPHEN 1,000 MG/100 ML BTL 400 MG IVPB (12:50)
[2023-09-26 12:53] LABS: Abs Immature Grans 0.14 10^3/uL (0.0-0.06); Absolute Eosinophil Count 0.04 10^3/uL (0.0-0.7); Absolute Lymphocyte Count 1.04 10^3/uL (1.2-3.4); BE (Venous) 9 mmol/L (-2-3); Basophils % 0.3 %; Eosinophils % 0.2 %; HCO3 (Venous) 32 mmol/L (23-28); HCT 37.1 % (40.0-50.0); HGB 12.2 g/dL (13.5-17.5); Immature Grans % 0.7 %; Lactate 1.6 mmol/L (0.6-1.4); Lymphocytes % 5.1 %; MCH 26.6 pg (27.0-33.0); MCHC 32.9 % (32.0-36.0); MCV 81 fL (80-95); MPV 10.2 fL (8.0-11.0); Monocytes % 5.4 %; Neutrophils % 88.3 %; O2 Sat (Venous) 63 %; Platelet Count 278 10^3/uL (130-400); RBC 4.59 10^6/uL (4.36-5.78); RDW 13.1 % (11.8-14.1); RDW-SD 38.4 fL; TCO2 (Venous) 29 mmol/L (24-29); pCO2 (Venous) 46 mmHg (41-51); pH (Venous) 7.46 (7.31-7.41); pO2 (Venous) 33 mmHg
[2023-09-26 12:58] LABS: Absolute Basophil Count 0.06 10^3/uL (0.0-0.2); Absolute Neutrophil Count 17.92 10^3/uL (1.2-6.7)
[2023-09-26 13:04] LABS: Bilirubin Negative (Negative); Blood Small (Negative); Clarity Clear (Clear); Glucose >=1000 mg/dL (Negative); Ketones Negative (Negative); Leukocyte Esterase Negative (Negative); Nitrite Negative (Negative); Urobilinogen 0.2 mg/dL (Up to 0.2); pH 5.5 (5-8)
[2023-09-26 13:15] LABS: ALT 33 U/L (16-63); AST 20 U/L (15-37); Albumin 2.8 g/dL (3.4-5.0); Alkaline Phosphatase 110 U/L (46-116); Anion Gap 6.8 mmol/L (3-11); BUN 20 mg/dL (7-18); Bilirubin, Direct 0.1 mg/dL (0.0-0.2); C-Reactive Protein 16.87 mg/dL (<or=0.5); CO2 33.2 mmol/L (21.0-32.0); Calcium 10.4 mg/dL (8.5-10.1); Chloride 94 mmol/L (98-107); Estimated GFR 83.52 (mL/min/1.73m2); Glucose 207 mg/dL (74-106); Lipase 14 U/L (16-77); Magnesium 1.5 mg/dL (1.8-2.4); Potassium 3.4 mmol/L (3.5-5.1); Sodium 134 mmol/L (136-145)
--- NOTE | 2023-09-26 13:15 | DI.RAD_ITS ---
Exam(s) XR PORTABLE CHEST AP EXAM: XR PORTABLE CHEST AP CLINICAL HISTORY: hypoxia TECHNIQUE: 2D digital imaging was performed. COMPARISON: CT CHEST FOR PULMONARY EMBOLUS from 12/30/2016 FINDINGS: LUNGS: Clear. No pleural abnormality seen. HEART: Normal size. AORTA: Normal diameter. BONES: Unremarkable for age. Soft tissues: Unremarkable. IMPRESSION: No acute findings. DATA REPOSITORY: RADIATION DOSE DELIVERED:
[2023-09-26] MEDS: CEFEPIME 2 GM in Normal Saline 100 ML IVPB ×2 (13:25→22:36)
[2023-09-26 13:28] LABS: Bacteria Negative HPF (Negative); C & S Indicated? No; Casts 0-2 Hyaline LPF (Negative); Crystals Negative HPF (Negative); Epithelial Cells Rare HPF (Negative); Mucus Negative (Negative); RBC 0-2 HPF (0-2); WBC Negative HPF (0-5)
[2023-09-26 13:35] LABS: Procalcitonin 4.9 ng/mL
[2023-09-26] MEDS: Albuterol/Ipratropium 3 ML UPD VIAL UPD (13:44)
[2023-09-26] MEDS: VANCOMYCIN/WATER (PEG) 1.5 GM/300 ML BAG IVPB (14:03)
--- NOTE | 2023-09-26 14:45 | DI.MRI_ITS ---
Exam(s) MR LOWER EXTREMITY LT WO/W EXAM: MR LOWER EXTREMITY LT WO/W CLINICAL HISTORY: diabetic foot ulcer; r/o osteomyelitis. TECHNIQUE: Multiplanar multisequence MRI was performed. CONTRAST MATERIAL: IV Contrast: mL of Dotarem contrast administered. COMPARISON: MR MR LOWER EXTREMITY LT WO/W from 05/01/2020 CR XR FOOT LT COMPLETE from 07/28/2023 CR XR FOOT LT COMPLETE from 09/26/2023 FINDINGS: On the T1 weighted images, there is hypointense signal seen in the head of the 1st metatarsal bone an d base of the proximal phalanx of the great toe. There is also linear hypointense signal seen in the diaphysis which corresponds to hyperintense linear signal on the T2 weighted images. The findings r aise a question of avascular necrosis of the 1st metatarsal bone. This was not present on the MRI fr om 05/01/2020. Following contrast administration there is very mild heterogeneous enhancement seen in the 1st metatarsal bone. Since the x-ray from 07/28/2023, has been loss of volume of the head of the 2nd metatarsal bone. There is also hypointense signal seen on the T1 weighted images in the residual head and mild enhancement on the postcontrast images. There is edema seen in the surrounding soft tissues. There is also a pe ripherally enhancing fluid collection on the plantar surface of the foot at the level of the head of the 2nd metatarsal bone (series [id number], image 15). It measures less than 6 mm by 3 mm. It lies adjac ent to the 2nd metatarsal flexor tendons. No other fluid collection is identified. IMPRESSION: 1. Since the prior examination, there has been loss of volume of the head of the 2nd metatarsal bone. There is hypointense signal and mild enhancement noted suggestive for osteomyelitis. 2. Small less than 1 cm fluid collection with an enhancing wall in the soft tissues adjacent to the 2 nd metatarsal flexor tendon suspicious for small abscess. 3. Linear abnormal signal seen in the head and diaphysis of the 1st metatarsal bones suspicious for a vascular necrosis. 4. There is also enhancement in heterogeneous signal seen in the distal 1st metatarsal and proximal p halanx of the great toes suspicious for osteomyelitis. 5. Edema seen in the soft tissues of the forefoot. DATA REPOSITORY:
--- NOTE | 2023-09-26 15:36 | W.PC.ACHO ---
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) (Last Reviewed 07/28/23 @ 12:53 by Migdalia Sy DPM) Status post below knee amputation of right lower extremity S/P femoral-popliteal bypass surgery History of arthroplasty of both knees Most Recent Vital Signs Temperature 36.6 C 09/26/23 14:11 Temperature Source Temporal Artery Scan 09/26/23 14:11 Pulse 88 09/26/23 14:11 Pulse 87 09/26/23 14:20 Respiratory Rate 16 09/26/23 14:11 Blood Pressure 117/71 09/26/23 14:16 Blood Pressure Mean 83 09/26/23 14:16 Pulse Oximetry 95 09/26/23 14:20 Oxygen Delivery Method Nasal Cannula 09/26/23 14:11 Oxygen Flow Rate 2 09/26/23 14:11 Pain Level 0 09/26/23 14:11 Allergies metformin Adverse Reaction (Mild, Verified 09/26/23 11:36) Diarrhea states there is no issues now Precautions Isolation Standard precaution 09/26/23 14:10 IV IV Catheter Type [Right Saline Lock Antecubital] IV Catheter Gauge [Right 18 Antecubital] Diagnostics 09/26/23 09/26/23 09/26/23 Range/Units 12:55 12:40 12:40 WBC (4.4-10.8) 10^3/uL RBC (4.36-5.78) 10^6/uL Hgb (13.5-17.5) g/dL Hct (40.0-50.0) % MCV (80-95) fL MCH (27.0-33.0) pg MCHC (32.0-36.0) % RDW (11.8-14.1) % Plt Count (130-400) 10^3/uL MPV (8.0-11.0) fL Immature Gran % % Neutrophils % % Lymphocytes % % Monocytes % % Eosinophils % % Basophils % % Nucleated RBC % (0.0-0.3) % Absolute Neutrophils (1.2-6.7) 10^3/uL Absolute Lymphocytes (1.2-3.4) 10^3/uL Absolute Monocytes (0.1-0.8) 10^3/uL Absolute Eosinophils (0.0-0.7) 10^3/uL Absolute Basophils (0.0-0.2) 10^3/uL VBG pH VBG pCO2 VBG pO2 VBG HCO3 VBG Total CO2 VBG O2 Saturation VBG Base Excess VBG Lactate (0.6-1.4) mmol/L Sodium (136-145) mmol/L Potassium (3.5-5.1) mmol/L Chloride (98-107) mmol/L Carbon Dioxide (21.0-32.0) mmol/L Anion Gap (3-11) mmol/L BUN (7-18) mg/dL Creatinine (0.70-1.30) mg/dL Est GFR (CKD-EPI 2020) (mL/min/1.73m2) Glucose (74-106) mg/dL Calcium (8.5-10.1) mg/dL Magnesium (1.8-2.4) mg/dL Total Bilirubin (0.2-1.0) mg/dL Conjugated Bilirubin (0.0-0.2) mg/dL AST (15-37) U/L ALT (16-63) U/L Alkaline Phosphatase (46-116) U/L C-Reactive Protein (<or=0.5) mg/dL Total Protein Cancelled (6.4-8.2) g/dL Albumin Cancelled 2.8 L (3.4-5.0) g/dL Lipase 14 L (16-77) U/L Procalcitonin 4.9 ng/mL Urine Color Yellow (Yellow) Urine Clarity Clear (Clear) Urine pH 5.5 (5-8) Ur Specific [place] 1.010 (1.005-1.025) Urine Protein 100 H (Neg-Trace) mg/dL Urine Ketones Negative (Negative) mg/dL Urine Blood Small H (Negative) Urine Nitrite Negative (Negative) Urine Bilirubin Negative (Negative) Urine Urobilinogen 0.2 (Up to 0.2) mg/dL Ur Leukocyte Esterase Negative (Negative) Urine RBC 0-2 (0-2) HPF Urine WBC Negative (0-5) HPF Ur Epithelial Cells Rare (Negative) HPF Urine Crystals Negative (Negative) HPF Urine Bacteria Negative (Negative) HPF Urine Casts 0-2 Hyaline (Negative) LPF Urine Mucus Negative (Negative) Ur Culture Indicated? No Urine Glucose >=1000 H (Negative) mg/dL 09/26/23 09/26/23 09/26/23 Range/Units 12:40 12:40 12:40 WBC (4.4-10.8) 10^3/uL RBC (4.36-5.78) 10^6/uL Hgb (13.5-17.5) g/dL Hct (40.0-50.0) % MCV (80-95) fL MCH (27.0-33.0) pg MCHC (32.0-36.0) % RDW (11.8-14.1) % Plt Count (130-400) 10^3/uL MPV (8.0-11.0) fL Immature Gran % % Neutrophils % % Lymphocytes % % Monocytes % % Eosinophils % % Basophils % % Nucleated RBC % (0.0-0.3) % Absolute Neutrophils (1.2-6.7) 10^3/uL Absolute Lymphocytes (1.2-3.4) 10^3/uL Absolute Monocytes (0.1-0.8) 10^3/uL Absolute Eosinophils (0.0-0.7) 10^3/uL Absolute Basophils (0.0-0.2) 10^3/uL VBG pH VBG pCO2 VBG pO2 VBG HCO3 VBG Total CO2 VBG O2 Saturation VBG Base Excess VBG Lactate (0.6-1.4) mmol/L Sodium (136-145) mmol/L Potassium (3.5-5.1) mmol/L Chloride (98-107) mmol/L Carbon Dioxide (21.0-32.0) mmol/L Anion Gap (3-11) mmol/L BUN (7-18) mg/dL Creatinine (0.70-1.30) mg/dL Est GFR (CKD-EPI 2020) (mL/min/1.73m2) Glucose (74-106) mg/dL Calcium (8.5-10.1) mg/dL Magnesium (1.8-2.4) mg/dL Total Bilirubin (0.2-1.0) mg/dL Conjugated Bilirubin (0.0-0.2) mg/dL AST Cancelled (15-37) U/L ALT Cancelled 33 (16-63) U/L Alkaline Phosphatase Cancelled 110 (46-116) U/L C-Reactive Protein 16.87 H (<or=0.5) mg/dL Total Protein 7.0 (6.4-8.2) g/dL Albumin (3.4-5.0) g/dL Lipase (16-77) U/L Procalcitonin ng/mL Urine Color (Yellow) Urine Clarity (Clear) Urine pH (5-8) Ur Specific [place] (1.005-1.025) Urine Protein (Neg-Trace) mg/dL Urine Ketones (Negative) mg/dL Urine Blood (Negative) Urine Nitrite (Negative) Urine Bilirubin (Negative) Urine Urobilinogen (Up to 0.2) mg/dL Ur Leukocyte Esterase (Negative) Urine RBC (0-2) HPF Urine WBC (0-5) HPF Ur Epithelial Cells (Negative) HPF Urine Crystals (Negative) HPF Urine Bacteria (Negative) HPF Urine Casts (Negative) LPF Urine Mucus (Negative) Ur Culture Indicated? Urine Glucose (Negative) mg/dL 09/26/23 09/26/23 09/26/23 Range/Units 12:40 12:40 12:40 WBC (4.4-10.8) 10^3/uL RBC (4.36-5.78) 10^6/uL Hgb (13.5-17.5) g/dL Hct (40.0-50.0) % MCV (80-95) fL MCH (27.0-33.0) pg MCHC (32.0-36.0) % RDW (11.8-14.1) % Plt Count (130-400) 10^3/uL MPV (8.0-11.0) fL Immature Gran % % Neutrophils % % Lymphocytes % % Monocytes % % Eosinophils % % Basophils % % Nucleated RBC % (0.0-0.3) % Absolute Neutrophils (1.2-6.7) 10^3/uL Absolute Lymphocytes (1.2-3.4) 10^3/uL Absolute Monocytes (0.1-0.8) 10^3/uL Absolute Eosinophils (0.0-0.7) 10^3/uL Absolute Basophils (0.0-0.2) 10^3/uL VBG pH VBG pCO2 VBG pO2 VBG HCO3 VBG Total CO2 VBG O2 Saturation VBG Base Excess VBG Lactate (0.6-1.4) mmol/L Sodium (136-145) mmol/L Potassium (3.5-5.1) mmol/L Chloride (98-107) mmol/L Carbon Dioxide (21.0-32.0) mmol/L Anion Gap (3-11) mmol/L BUN (7-18) mg/dL Creatinine (0.70-1.30) mg/dL Est GFR (CKD-EPI 2020) (mL/min/1.73m2) Glucose (74-106) mg/dL Calcium Cancelled (8.5-10.1) mg/dL Magnesium 1.5 L (1.8-2.4) mg/dL Total Bilirubin Cancelled 0.50 (0.2-1.0) mg/dL Conjugated Bilirubin Cancelled 0.1 (0.0-0.2) mg/dL AST 20 (15-37) U/L ALT (16-63) U/L Alkaline Phosphatase (46-116) U/L C-Reactive Protein (<or=0.5) mg/dL Total Protein (6.4-8.2) g/dL Albumin (3.4-5.0) g/dL Lipase (16-77) U/L Procalcitonin ng/mL Urine Color (Yellow) Urine Clarity (Clear) Urine pH (5-8) Ur Specific [place] (1.005-1.025) Urine Protein (Neg-Trace) mg/dL Urine Ketones (Negative) mg/dL Urine Blood (Negative) Urine Nitrite (Negative) Urine Bilirubin (Negative) Urine Urobilinogen (Up to 0.2) mg/dL Ur Leukocyte Esterase (Negative) Urine RBC (0-2) HPF Urine WBC (0-5) HPF Ur Epithelial Cells (Negative) HPF Urine Crystals (Negative) HPF Urine Bacteria (Negative) HPF Urine Casts (Negative) LPF Urine Mucus (Negative) Ur Culture Indicated? Urine Glucose (Negative) mg/dL 09/26/23 09/26/23 09/26/23 Range/Units 12:40 12:40 12:40 WBC (4.4-10.8) 10^3/uL RBC (4.36-5.78) 10^6/uL Hgb (13.5-17.5) g/dL Hct (40.0-50.0) % MCV (80-95) fL MCH (27.0-33.0) pg MCHC (32.0-36.0) % RDW (11.8-14.1) % Plt Count (130-400) 10^3/uL MPV (8.0-11.0) fL Immature Gran % % Neutrophils % % Lymphocytes % % Monocytes % % Eosinophils % % Basophils % % Nucleated RBC % (0.0-0.3) % Absolute Neutrophils (1.2-6.7) 10^3/uL Absolute Lymphocytes (1.2-3.4) 10^3/uL Absolute Monocytes (0.1-0.8) 10^3/uL Absolute Eosinophils (0.0-0.7) 10^3/uL Absolute Basophils (0.0-0.2) 10^3/uL VBG pH VBG pCO2 VBG pO2 VBG HCO3 VBG Total CO2 VBG O2 Saturation VBG Base Excess VBG Lactate (0.6-1.4) mmol/L Sodium (136-145) mmol/L Potassium (3.5-5.1) mmol/L Chloride (98-107) mmol/L Carbon Dioxide (21.0-32.0) mmol/L Anion Gap (3-11) mmol/L BUN (7-18) mg/dL Creatinine Cancelled (0.70-1.30) mg/dL Est GFR (CKD-EPI 2020) Cancelled 83.52 (mL/min/1.73m2) Glucose Cancelled 207 H (74-106) mg/dL Calcium 10.4 H (8.5-10.1) mg/dL Magnesium (1.8-2.4) mg/dL Total Bilirubin (0.2-1.0) mg/dL Conjugated Bilirubin (0.0-0.2) mg/dL AST (15-37) U/L ALT (16-63) U/L Alkaline Phosphatase (46-116) U/L C-Reactive Protein (<or=0.5) mg/dL Total Protein (6.4-8.2) g/dL Albumin (3.4-5.0) g/dL Lipase (16-77) U/L Procalcitonin ng/mL Urine Color (Yellow) Urine Clarity (Clear) Urine pH (5-8) Ur Specific [place] (1.005-1.025) Urine Protein (Neg-Trace) mg/dL Urine Ketones (Negative) mg/dL Urine Blood (Negative) Urine Nitrite (Negative) Urine Bilirubin (Negative) Urine Urobilinogen (Up to 0.2) mg/dL Ur Leukocyte Esterase (Negative) Urine RBC (0-2) HPF Urine WBC (0-5) HPF Ur Epithelial Cells (Negative) HPF Urine Crystals (Negative) HPF Urine Bacteria (Negative) HPF Urine Casts (Negative) LPF Urine Mucus (Negative) Ur Culture Indicated? Urine Glucose (Negative) mg/dL 09/26/23 09/26/23 09/26/23 Range/Units 12:40 12:40 12:40 WBC (4.4-10.8) 10^3/uL RBC (4.36-5.78) 10^6/uL Hgb (13.5-17.5) g/dL Hct (40.0-50.0) % MCV (80-95) fL MCH (27.0-33.0) pg MCHC (32.0-36.0) % RDW (11.8-14.1) % Plt Count (130-400) 10^3/uL MPV (8.0-11.0) fL Immature Gran % % Neutrophils % % Lymphocytes % % Monocytes % % Eosinophils % % Basophils % % Nucleated RBC % (0.0-0.3) % Absolute Neutrophils (1.2-6.7) 10^3/uL Absolute Lymphocytes (1.2-3.4) 10^3/uL Absolute Monocytes (0.1-0.8) 10^3/uL Absolute Eosinophils (0.0-0.7) 10^3/uL Absolute Basophils (0.0-0.2) 10^3/uL VBG pH VBG pCO2 VBG pO2 VBG HCO3 VBG Total CO2 VBG O2 Saturation VBG Base Excess VBG Lactate (0.6-1.4) mmol/L Sodium (136-145) mmol/L Potassium (3.5-5.1) mmol/L Chloride (98-107) mmol/L Carbon Dioxide Cancelled (21.0-32.0) mmol/L Anion Gap Cancelled 6.8 (3-11) mmol/L BUN Cancelled 20 H (7-18) mg/dL Creatinine 1.0 (0.70-1.30) mg/dL Est GFR (CKD-EPI 2020) (mL/min/1.73m2) Glucose (74-106) mg/dL Calcium (8.5-10.1) mg/dL Magnesium (1.8-2.4) mg/dL Total Bilirubin (0.2-1.0) mg/dL Conjugated Bilirubin (0.0-0.2) mg/dL AST (15-37) U/L ALT (16-63) U/L Alkaline Phosphatase (46-116) U/L C-Reactive Protein (<or=0.5) mg/dL Total Protein (6.4-8.2) g/dL Albumin (3.4-5.0) g/dL Lipase (16-77) U/L Procalcitonin ng/mL Urine Color (Yellow) Urine Clarity (Clear) Urine pH (5-8) Ur Specific [place] (1.005-1.025) Urine Protein (Neg-Trace) mg/dL Urine Ketones (Negative) mg/dL Urine Blood (Negative) Urine Nitrite (Negative) Urine Bilirubin (Negative) Urine Urobilinogen (Up to 0.2) mg/dL Ur Leukocyte Esterase (Negative) Urine RBC (0-2) HPF Urine WBC (0-5) HPF Ur Epithelial Cells (Negative) HPF Urine Crystals (Negative) HPF Urine Bacteria (Negative) HPF Urine Casts (Negative) LPF Urine Mucus (Negative) Ur Culture Indicated? Urine Glucose (Negative) mg/dL 09/26/23 09/26/23 09/26/23 Range/Units 12:40 12:40 12:40 WBC (4.4-10.8) 10^3/uL RBC (4.36-5.78) 10^6/uL Hgb (13.5-17.5) g/dL Hct (40.0-50.0) % MCV (80-95) fL MCH (27.0-33.0) pg MCHC (32.0-36.0) % RDW (11.8-14.1) % Plt Count (130-400) 10^3/uL MPV (8.0-11.0) fL Immature Gran % % Neutrophils % % Lymphocytes % % Monocytes % % Eosinophils % % Basophils % % Nucleated RBC % (0.0-0.3) % Absolute Neutrophils (1.2-6.7) 10^3/uL Absolute Lymphocytes (1.2-3.4) 10^3/uL Absolute Monocytes (0.1-0.8) 10^3/uL Absolute Eosinophils (0.0-0.7) 10^3/uL Absolute Basophils (0.0-0.2) 10^3/uL VBG pH VBG pCO2 VBG pO2 VBG HCO3 VBG Total CO2 VBG O2 Saturation VBG Base Excess VBG Lactate (0.6-1.4) mmol/L Sodium Cancelled (136-145) mmol/L Potassium Cancelled 3.4 L D (3.5-5.1) mmol/L Chloride Cancelled 94 L (98-107) mmol/L Carbon Dioxide 33.2 H (21.0-32.0) mmol/L Anion Gap (3-11) mmol/L BUN (7-18) mg/dL Creatinine (0.70-1.30) mg/dL Est GFR (CKD-EPI 2020) (mL/min/1.73m2) Glucose (74-106) mg/dL Calcium (8.5-10.1) mg/dL Magnesium (1.8-2.4) mg/dL Total Bilirubin (0.2-1.0) mg/dL Conjugated Bilirubin (0.0-0.2) mg/dL AST (15-37) U/L ALT (16-63) U/L Alkaline Phosphatase (46-116) U/L C-Reactive Protein (<or=0.5) mg/dL Total Protein (6.4-8.2) g/dL Albumin (3.4-5.0) g/dL Lipase (16-77) U/L Procalcitonin ng/mL Urine Color (Yellow) Urine Clarity (Clear) Urine pH (5-8) Ur Specific [place] (1.005-1.025) Urine Protein (Neg-Trace) mg/dL Urine Ketones (Negative) mg/dL Urine Blood (Negative) Urine Nitrite (Negative) Urine Bilirubin (Negative) Urine Urobilinogen (Up to 0.2) mg/dL Ur Leukocyte Esterase (Negative) Urine RBC (0-2) HPF Urine WBC (0-5) HPF Ur Epithelial Cells (Negative) HPF Urine Crystals (Negative) HPF Urine Bacteria (Negative) HPF Urine Casts (Negative) LPF Urine Mucus (Negative) Ur Culture Indicated? Urine Glucose (Negative) mg/dL 09/26/23 09/26/23 Range/Units 12:40 12:34 WBC 20.30 H (4.4-10.8) 10^3/uL RBC 4.59 (4.36-5.78) 10^6/uL Hgb 12.2 L D (13.5-17.5) g/dL Hct 37.1 L (40.0-50.0) % MCV 81 (80-95) fL MCH 26.6 L (27.0-33.0) pg MCHC 32.9 (32.0-36.0) % RDW 13.1 (11.8-14.1) % Plt Count 278 (130-400) 10^3/uL MPV 10.2 (8.0-11.0) fL Immature Gran % 0.7 % Neutrophils % 88.3 % Lymphocytes % 5.1 % Monocytes % 5.4 % Eosinophils % 0.2 % Basophils % 0.3 % Nucleated RBC % 0.0 (0.0-0.3) % Absolute Neutrophils 17.92 H (1.2-6.7) 10^3/uL Absolute Lymphocytes 1.04 L (1.2-3.4) 10^3/uL Absolute Monocytes 1.10 H (0.1-0.8) 10^3/uL Absolute Eosinophils 0.04 (0.0-0.7) 10^3/uL Absolute Basophils 0.06 (0.0-0.2) 10^3/uL VBG pH 7.46 H Cancelled VBG pCO2 46 Cancelled VBG pO2 33 Cancelled VBG HCO3 32 H Cancelled VBG Total CO2 29 Cancelled VBG O2 Saturation 63 Cancelled VBG Base Excess 9 H Cancelled VBG Lactate 1.6 H (0.6-1.4) mmol/L Sodium 134 L (136-145) mmol/L Potassium (3.5-5.1) mmol/L Chloride (98-107) mmol/L Carbon Dioxide (21.0-32.0) mmol/L Anion Gap (3-11) mmol/L BUN (7-18) mg/dL Creatinine (0.70-1.30) mg/dL Est GFR (CKD-EPI 2020) (mL/min/1.73m2) Glucose (74-106) mg/dL Calcium (8.5-10.1) mg/dL Magnesium (1.8-2.4) mg/dL Total Bilirubin (0.2-1.0) mg/dL Conjugated Bilirubin (0.0-0.2) mg/dL AST (15-37) U/L ALT (16-63) U/L Alkaline Phosphatase (46-116) U/L C-Reactive Protein (<or=0.5) mg/dL Total Protein (6.4-8.2) g/dL Albumin (3.4-5.0) g/dL Lipase (16-77) U/L Procalcitonin ng/mL Urine Color (Yellow) Urine Clarity (Clear) Urine pH (5-8) Ur Specific [place] (1.005-1.025) Urine Protein (Neg-Trace) mg/dL Urine Ketones (Negative) mg/dL Urine Blood (Negative) Urine Nitrite (Negative) Urine Bilirubin (Negative) Urine Urobilinogen (Up to 0.2) mg/dL Ur Leukocyte Esterase (Negative) Urine RBC (0-2) HPF Urine WBC (0-5) HPF Ur Epithelial Cells (Negative) HPF Urine Crystals (Negative) HPF Urine Bacteria (Negative) HPF Urine Casts (Negative) LPF Urine Mucus (Negative) Ur Culture Indicated? Urine Glucose (Negative) mg/dL 09/26/23 13:06 Blood Culture - Pending Blood 09/26/23 12:40 Blood Culture - Pending Blood Intake and Output - 24 Hour Total 09/26/23 11:26 thru 09/26/23 14:00 Intake Total 1200 Balance 1200 Weight 95.254 kg Intake: IV 1200 Falls Risk Assessment Contributing Factors Impairments 09/26/23 14:19 Tubes/Lines W/no contributing factors 09/26/23 14:19 Gait Evaluation W/no contributing factors 09/26/23 14:19 Cognition No cognitive impairment 09/26/23 14:19 Fall Total Score 23 09/26/23 14:19 Level of Risk Standard/Low Risk 09/26/23 14:19 v v v v v v v v v Sending and/or Receiving Nurses: Please use comment section below to note any information pertinent to the patient hand-off not included above. Information / Comments: A/O x4, PCP requested lab work today during visit and pt came to ER. febrile 38.3, tylenol given and pt current temp is 36.6. WBC elevated at 20, Pt has poor healing diabetic foot ulcer with UNNA boot changed weekly by home health. Receiving IV ABX per MD order, pt has history of L BKA, prosthesis with pt at this time. Pt placed on 2L NC due to poor SAT's and SOB, current VS in ER, BP 126/54, HR 81, RR 20, SAT's 93% 2L NC, 36.6 C. Report received from: GIGI Ramos
[2023-09-26] MEDS: Gadoterate meglumine 20 ML SYRINGE IVP (15:40)
[2023-09-26] MEDS: Normal Saline Flush 10 ML SYR IVP ×3 (15:41→21:16)
--- NOTE | 2023-09-26 16:28 | DI.RAD_ITS ---
Exam(s) XR FOOT LT COMPLETE EXAM: XR FOOT LT COMPLETE CLINICAL HISTORY: left foot diabetic ulcer r/o osteomyelitis. TECHNIQUE: 2D digital imaging was performed of the left foot. Three images were obtained. AP, obli que and lateral views were obtained. COMPARISON: CR XR FOOT LT COMPLETE from 07/28/2023 FINDINGS: BONES: No acute fracture is present. The patient has had a prior 2nd toe amputation to the level of t he 2nd MTP joint. Since examination from 07/28/2023 there has been loss of volume of the head of the 2 nd metatarsal bone. There are also areas of gas in the soft tissues between the 1st and 2nd metatars al heads. There are new lucencies seen in the medial aspects of the head of the 1st metatarsal and b ase of the proximal phalanx of the great toe which were not present on the prior examination. These findings raise a question of and osteomyelitis. There is an enthesophyte at the posterior calcaneus. JOINTS: No dislocation present. Degenerative changes are seen at the 1st MTP joint. SOFT TISSUE: Soft tissue swelling of the foot is noted. IMPRESSION: 1. New loss of volume of the head of the 2nd metatarsal bone. There also new areas of cortical loss in the medial aspect of the head of the 1st metatarsal bone and the base of the proximal phalanx of t he great toe raising the question of osteomyelitis. Please correlate with any recent surgical histor y. 2. Soft tissue gas seen between the 1st and 2nd digits. 3. Generalized soft tissue swelling of the forefoot. DATA REPOSITORY: RADIATION DOSE DELIVERED:
--- NOTE | 2023-09-26 17:01 | W.PM.HP.N ---
Date of service: 09/26/23 Time of Service: 17:01 Assessment and Plan Assessment and plan (1) Sepsis: Status: Acute Assessment and plan: secondary to gangrene of left foot from chronic ulcer of left 1st and 2nd MTP joint. Blood cultures were obtained in the ED, med/surg nursing removed his Claudia boot at my request, and they obtained wound cultures for me. Patient was begun on cefepime and Vancomcyin while in the ED, will continue the same. Use cefepime 2 gm IV Q8h for coverage of Pseudomonas and anaerobes,gram negatives and Strep; Vancomycin for Staph coverage Patient needs to see a vascular surgeon. I did text Dr. Sy information about the patient and sent her pictures. She is not available over the weekend but will plan for surgery on Friday if patient is willing (note I did get verbal consent from the patient for the pictures and for sharing w/ podiatry. Patient wants me to contact a vascular surgeon at [facility] whom a friend had gone to w/ similar vascular insufficiency ulcer and had a good outcome w/o amputation. I told him that I would make calls in the morning to [place]. Qualifiers: Sepsis type: sepsis due to unspecified organism Sepsis acute organ dysfunction status: without acute organ dysfunction Qualified Code(s): A41.9 - Sepsis, unspecified organism (2) Diabetic wet gangrene of the foot: Status: Acute Assessment and plan: see above (3) Type 2 diabetes mellitus with left diabetic foot ulcer: Status: Chronic Assessment and plan: check glucose AC/HS, cover w/ basal/bolus insulin, he is not in DKA or HHNK. (4) Diabetes mellitus with neuropathy: Status: Chronic Qualifiers: Diabetes mellitus type: type 2 Diabetes mellitus residential insulin use: with residential use Qualified Code(s): E11.40 - Type 2 diabetes mellitus with diabetic neuropathy, unspecified; Z79.4 - intermediate (current) use of insulin (5) Anticoagulated: Status: Acute Assessment and plan: chronic anticoagulation d/t is PAD; also he had prior CVA w/ full recovery but had seizures after his CVA and now is on Keppra (6) Seizure disorder: Status: Chronic Assessment and plan: continue Keppra (7) Peripheral vascular disease: Status: Chronic Assessment and plan: cont. ASA, rivaroxaban and atorvastatin History of Present Illness History of Present Illness Chief Complaint: Patient referred by PCP to the emergency department for blood work Narrative: 63-year-old male with severe peripheral arterial vascular disease status post right lower extremity BKA amputation, prior femoral stents who was sent to emergency department by his primary care provider to get some blood work. Patient has been treated by his primary care provider with a left diabetic plantar foot wound over the first and second MTP heads. He states he has had this ulcer for about a month and has been getting CLAUDIA boot treatment to the foot. Upon evaluation in the emergency room he was noted to be mildly hypotensive which responded to iv fluids. Patient allegedly refused to allow the CLAUDIA boot dressing to be removed. The ED provider noted no edema of the LLE and no erythema spreading up the leg. However labs were remarkable for WBC 20,3000, lactate 1.6, anemia H/H 12.2/37, Mg 1.5 and K 3.2, normal creatinine 1.0, low albumin 2.8. No xray imaging was done of the foot. Upon receiving that call for admission of a diabetic foot ulcer, I requested that the Claudia boot be removed, and ordered plain film xray and MRI of the foot be done. 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 There is edema of the forefoot consistent w/ cellulitis of the foot. Blood cultures were obtained and he was started on Vancomycin and cefepime. Review of Systems All systems reviewed & are unremarkable except as noted in HPI and below PFSH All Active Problems (Updated 09/26/23 @ 22:12 by Karlos Lopez MD) Diabetic wet gangrene of the foot (Acute) Sepsis (Acute) Type 2 diabetes mellitus with left diabetic foot ulcer (Chronic) Diabetes mellitus with neuropathy (Chronic) Atherosclerosis of artery of both lower extremities (Chronic) Below-knee amputation of right lower extremity (Chronic) Venous stasis ulcer of left lower leg with edema of left lower leg (Chronic) Ulcer of left lower extremity with fat layer exposed (Chronic) Ulcer of left foot with fat layer exposed (Acute) BPH loc w urin obs/LUTS (Acute) Hypercalcemia (Acute) Diabetes mellitus with insulin therapy (Acute) Type 2 diabetes mellitus with peripheral vascular disease (Acute) Status post below knee amputation of right lower extremity (Acute) Anticoagulated (Acute) on xarelto due to h/o PAD Nocturia (Acute) Seizure disorder (Chronic) Had 2 seizures since CVA Peripheral vascular disease (Chronic 03/28/16) Status post blilateral femoral artery stents. 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 Social History Smoking/Tobacco Use Status: Former Tobacco Use Quit Date: 02/24/89 Tobacco: How many years used: 15 Smoking risk assessment performed?: Yes Alcohol Intake: never Drug use: Never Substance use type: does not use Caregiver/Support person: No Household members: spouse and none Housing: apartment Communication Needs: None Do you need help understanding health information?: Never Pets and animals: Yes Pets and animals: dog(s) Sexually active: Yes Do you think of yourself as: straight/heterosexual Current gender identity: male What is your relationship status?: How often do you talk on the phone with friends or family?: three or more times per week How often do you get together with friends or relatives?: three or more times per week How often do you attend religious or tenriism services?: 1-3 times per year Do you belong to any clubs or organized social groups?: yes Panel score (0-1 are the most socially isolated patients): 2 What type of physical activity do you participate in: decline to answer Duration: decline to answer Frequency: decline to answer [place]/Jewish: Jehovah'S Witness Special marina needs: No Seatbelt use: always Helmet use: Yes Helmet use: always 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 Do you feel safe at home: Yes Do you feel safe in your relationship?: Yes Meds Allergies and Home Medications Allergies Allergy/AdvReac Type Severity Reaction Status Date / Time metformin AdvReac Mild Diarrhea Verified 09/26/23 11:36 Home Medications ?Medication ?Instructions ?Recorded ?Confirmed ?Type albuterol sulfate 90 mcg/actuation 2 puff inhalation BID PRN dyspnea 08/23/22 09/26/23 History aerosol inhaler (Ventolin HFA) aspirin 81 mg tablet,delayed 81 mg PO DAILY 08/23/22 09/26/23 History release atorvastatin 40 mg tablet (Lipitor) 40 mg PO DAILY #90 tab-caps 08/23/22 09/26/23 Rx metformin 500 mg tablet 500 mg PO BID #180 tabs 08/23/22 09/26/23 Rx chlorthalidone 25 mg tablet 25 mg PO DAILY #90 tab-caps 09/10/22 09/26/23 Rx fluticasone propionate 110 1 puff inhalation BID PRN 10/03/22 07/28/23 History mcg/actuation HFA aerosol inhaler (Flovent HFA) cholecalciferol (vitamin D3) 25 25 mcg PO DAILY 10/04/22 09/26/23 History mcg (1,000 unit) capsule rivaroxaban 2.5 mg tablet (Xarelto) 2.5 mg PO BID #180 tabs 11/25/22 09/26/23 Rx insulin glargine 100 unit/mL (3 44 unit (0.44 mL) subcut QAM #15 mL 12/24/22 09/26/23 Rx mL) subcutaneous pen (Lantus Solostar U-100 Insulin) losartan 100 mg tablet 100 mg PO DAILY #90 tab-caps 12/24/22 09/26/23 Rx nifedipine 90 mg tablet,extended 90 mg PO BID #180 tab-caps 12/24/22 07/28/23 Rx release 24 hr prosthetic leg and prosthetic #1 ea 12/25/22 09/26/23 Rx supplies flash glucose scanning reader #1 ea 02/28/23 09/26/23 Rx (FreeStyle Adama 14 Day [place]) flash glucose sensor (FreeStyle #2 ea 02/28/23 09/26/23 Rx Adama 14 Day Sensor kit) insulin lispro 100 unit/mL 5 unit (0.05 mL) subcut TID #15 mL 02/28/23 07/28/23 Rx subcutaneous pen (Humalog Tempo Pen (U-100) Insulin) levetiracetam 500 mg tablet 1,000 mg (2 x 500 mg) PO BID #360 03/31/23 09/26/23 Rx (Keppra) tabs finasteride 5 mg tablet 5 mg PO DAILY #90 tabs 04/08/23 07/28/23 Rx tamsulosin 0.4 mg capsule 0.4 mg PO QHS #90 caps 05/12/23 07/28/23 Rx empagliflozin 10 mg tablet 10 mg PO DAILY 09/26/23 09/26/23 History (Jardiance) furosemide 20 mg tablet 20 mg PO DAILY 09/26/23 09/26/23 History guanfacine 2 mg tablet 2 mg PO HS 09/26/23 09/26/23 History oxybutynin chloride 5 mg tablet 10 mg PO HS 09/26/23 09/26/23 History sertraline 50 mg tablet 50 mg PO DAILY 09/26/23 09/26/23 History Exam Narrative Exam Narrative: Middle age white male who is stoic, denies any pain, alert and oriented x 3, he is insistent that he is not going to allow his left foot to be amputated, despite my telling him he has wet gangrene and there is inadequate circulation to save the foot. At a minimum he needs the first two metatarsals amputated to remove the necrotic tissue and bone. HEENT: urnremarkable Neck: supple, normal carotid pulses but with soft bilateral bruits, no JVD, no adenopathy Lungs: clear Heart: RRR, no murmur or rub or gallop Abdomen: normal bowel sounds, no bruits, nontender and nondistended Extremities: s/p right BKA, surgical site of stump is well healed, no redness or edema, right popliteal pulse palpable as is the femoral pulse. left foot w/ foul smell and black, wet ulceration of the plantar surface of the 1st and 2nd MTP heads, toes are ulcerated, entire foot is edematous, reddened, nonpalpable pedal pulses, nonpalpable popliteal pulse but palpable femoral pulse. Normal ROM and strenght, No focal CN deficits. Results Imaging Imaging Studies: MRI left lower extremity (foot) w/ and w/out contrast: IMPRESSION: 1. Since the prior examination, there has been loss of volume of the head of the 2nd metatarsal bone. There is hypointense signal and mild enhancement noted suggestive for osteomyelitis. 2. Small less than 1 cm fluid collection with an enhancing wall in the soft tissues adjacent to the 2nd metatarsal flexor tendon suspicious for small abscess. 3. Linear abnormal signal seen in the head and diaphysis of the 1st metatarsal bones suspicious for avascular necrosis. 4. There is also enhancement in heterogeneous signal seen in the distal 1st metatarsal and proximal phalanx of the great toes suspicious for osteomyelitis. 5. Edema seen in the soft tissues of the forefoot. X ray of left foot: IMPRESSION: 1. New loss of volume of the head of the 2nd metatarsal bone. There also new areas of cortical loss in the medial aspect of the head of the 1st metatarsal bone and the base of the proximal phalanx of the great toe raising the question of osteomyelitis. Please correlate with any recent surgical history. 2. Soft tissue gas seen between the 1st and 2nd digits. 3. Generalized soft tissue swelling of the forefoot. Labs 09/26/23 12:40 09/26/23 12:40 Labs: Laboratory Results - last 24 hr 09/26/23 09/26/23 09/26/23 12:34 12:40 12:40 WBC 20.30 H RBC 4.59 Hgb 12.2 L D Hct 37.1 L MCV 81 MCH 26.6 L MCHC 32.9 RDW 13.1 Plt Count 278 MPV 10.2 Immature Gran % 0.7 Neutrophils % 88.3 Lymphocytes % 5.1 Monocytes % 5.4 Eosinophils % 0.2 Basophils % 0.3 Nucleated RBC % 0.0 Absolute Neutrophils 17.92 H Absolute Lymphocytes 1.04 L Absolute Monocytes 1.10 H Absolute Eosinophils 0.04 Absolute Basophils 0.06 VBG pH Cancelled 7.46 H VBG pCO2 Cancelled 46 VBG pO2 Cancelled 33 VBG HCO3 Cancelled 32 H VBG Total CO2 Cancelled 29 VBG O2 Saturation Cancelled 63 VBG Base Excess Cancelled 9 H VBG Lactate 1.6 H Sodium 134 L Cancelled Potassium 3.4 L D Chloride Carbon Dioxide Anion Gap BUN Creatinine Est GFR (CKD-EPI 2020) Glucose Calcium Magnesium Total Bilirubin Conjugated Bilirubin AST ALT Alkaline Phosphatase C-Reactive Protein Total Protein Albumin Lipase Procalcitonin Urine Color Urine Clarity Urine pH Ur Specific [place] Urine Protein Urine Ketones Urine Blood Urine Nitrite Urine Bilirubin Urine Urobilinogen Ur Leukocyte Esterase Urine RBC Urine WBC Ur Epithelial Cells Urine Crystals Urine Bacteria Urine Casts Urine Mucus Ur Culture Indicated? Urine Glucose 09/26/23 09/26/23 09/26/23 12:40 12:40 12:40 WBC RBC Hgb Hct MCV MCH MCHC RDW Plt Count MPV Immature Gran % Neutrophils % Lymphocytes % Monocytes % Eosinophils % Basophils % Nucleated RBC % Absolute Neutrophils Absolute Lymphocytes Absolute Monocytes Absolute Eosinophils Absolute Basophils VBG pH VBG pCO2 VBG pO2 VBG HCO3 VBG Total CO2 VBG O2 Saturation VBG Base Excess VBG Lactate Sodium Potassium Cancelled Chloride 94 L Cancelled Carbon Dioxide 33.2 H Cancelled Anion Gap 6.8 BUN Creatinine Est GFR (CKD-EPI 2020) Glucose Calcium Magnesium Total Bilirubin Conjugated Bilirubin AST ALT Alkaline Phosphatase C-Reactive Protein Total Protein Albumin Lipase Procalcitonin Urine Color Urine Clarity Urine pH Ur Specific [place] Urine Protein Urine Ketones Urine Blood Urine Nitrite Urine Bilirubin Urine Urobilinogen Ur Leukocyte Esterase Urine RBC Urine WBC Ur Epithelial Cells Urine Crystals Urine Bacteria Urine Casts Urine Mucus Ur Culture Indicated? Urine Glucose 09/26/23 09/26/23 09/26/23 12:40 12:40 12:40 WBC RBC Hgb Hct MCV MCH MCHC RDW Plt Count MPV Immature Gran % Neutrophils % Lymphocytes % Monocytes % Eosinophils % Basophils % Nucleated RBC % Absolute Neutrophils Absolute Lymphocytes Absolute Monocytes Absolute Eosinophils Absolute Basophils VBG pH VBG pCO2 VBG pO2 VBG HCO3 VBG Total CO2 VBG O2 Saturation VBG Base Excess VBG Lactate Sodium Potassium Chloride Carbon Dioxide Anion Gap Cancelled BUN 20 H Cancelled Creatinine 1.0 Cancelled Est GFR (CKD-EPI 2020) 83.52 Glucose Calcium Magnesium Total Bilirubin Conjugated Bilirubin AST ALT Alkaline Phosphatase C-Reactive Protein Total Protein Albumin Lipase Procalcitonin Urine Color Urine Clarity Urine pH Ur Specific [place] Urine Protein Urine Ketones Urine Blood Urine Nitrite Urine Bilirubin Urine Urobilinogen Ur Leukocyte Esterase Urine RBC Urine WBC Ur Epithelial Cells Urine Crystals Urine Bacteria Urine Casts Urine Mucus Ur Culture Indicated? Urine Glucose 09/26/23 09/26/23 09/26/23 12:40 12:40 12:40 WBC RBC Hgb Hct MCV MCH MCHC RDW Plt Count MPV Immature Gran % Neutrophils % Lymphocytes % Monocytes % Eosinophils % Basophils % Nucleated RBC % Absolute Neutrophils Absolute Lymphocytes Absolute Monocytes Absolute Eosinophils Absolute Basophils VBG pH VBG pCO2 VBG pO2 VBG HCO3 VBG Total CO2 VBG O2 Saturation VBG Base Excess VBG Lactate Sodium Potassium Chloride Carbon Dioxide Anion Gap BUN Creatinine Est GFR (CKD-EPI 2020) Cancelled Glucose 207 H Cancelled Calcium 10.4 H Cancelled Magnesium 1.5 L Total Bilirubin 0.50 Conjugated Bilirubin AST ALT Alkaline Phosphatase C-Reactive Protein Total Protein Albumin Lipase Procalcitonin Urine Color Urine Clarity Urine pH Ur Specific [place] Urine Protein Urine Ketones Urine Blood Urine Nitrite Urine Bilirubin Urine Urobilinogen Ur Leukocyte Esterase Urine RBC Urine WBC Ur Epithelial Cells Urine Crystals Urine Bacteria Urine Casts Urine Mucus Ur Culture Indicated? Urine Glucose 09/26/23 09/26/23 09/26/23 12:40 12:40 12:40 WBC RBC Hgb Hct MCV MCH MCHC RDW Plt Count MPV Immature Gran % Neutrophils % Lymphocytes % Monocytes % Eosinophils % Basophils % Nucleated RBC % Absolute Neutrophils Absolute Lymphocytes Absolute Monocytes Absolute Eosinophils Absolute Basophils VBG pH VBG pCO2 VBG pO2 VBG HCO3 VBG Total CO2 VBG O2 Saturation VBG Base Excess VBG Lactate Sodium Potassium Chloride Carbon Dioxide Anion Gap BUN Creatinine Est GFR (CKD-EPI 2020) Glucose Calcium Magnesium Total Bilirubin Cancelled Conjugated Bilirubin 0.1 Cancelled AST 20 Cancelled ALT 33 Alkaline Phosphatase C-Reactive Protein Total Protein Albumin Lipase Procalcitonin Urine Color Urine Clarity Urine pH Ur Specific [place] Urine Protein Urine Ketones Urine Blood Urine Nitrite Urine Bilirubin Urine Urobilinogen Ur Leukocyte Esterase Urine RBC Urine WBC Ur Epithelial Cells Urine Crystals Urine Bacteria Urine Casts Urine Mucus Ur Culture Indicated? Urine Glucose 09/26/23 09/26/23 09/26/23 12:40 12:40 12:40 WBC RBC Hgb Hct MCV MCH MCHC RDW Plt Count MPV Immature Gran % Neutrophils % Lymphocytes % Monocytes % Eosinophils % Basophils % Nucleated RBC % Absolute Neutrophils Absolute Lymphocytes Absolute Monocytes Absolute Eosinophils Absolute Basophils VBG pH VBG pCO2 VBG pO2 VBG HCO3 VBG Total CO2 VBG O2 Saturation VBG Base Excess VBG Lactate Sodium Potassium Chloride Carbon Dioxide Anion Gap BUN Creatinine Est GFR (CKD-EPI 2020) Glucose Calcium Magnesium Total Bilirubin Conjugated Bilirubin AST ALT Cancelled Alkaline Phosphatase 110 Cancelled C-Reactive Protein 16.87 H Total Protein 7.0 Cancelled Albumin 2.8 L Lipase Procalcitonin Urine Color Urine Clarity Urine pH Ur Specific [place] Urine Protein Urine Ketones Urine Blood Urine Nitrite Urine Bilirubin Urine Urobilinogen Ur Leukocyte Esterase Urine RBC Urine WBC Ur Epithelial Cells Urine Crystals Urine Bacteria Urine Casts Urine Mucus Ur Culture Indicated? Urine Glucose 09/26/23 09/26/23 12:40 12:55 WBC RBC Hgb Hct MCV MCH MCHC RDW Plt Count MPV Immature Gran % Neutrophils % Lymphocytes % Monocytes % Eosinophils % Basophils % Nucleated RBC % Absolute Neutrophils Absolute Lymphocytes Absolute Monocytes Absolute Eosinophils Absolute Basophils VBG pH VBG pCO2 VBG pO2 VBG HCO3 VBG Total CO2 VBG O2 Saturation VBG Base Excess VBG Lactate Sodium Potassium Chloride Carbon Dioxide Anion Gap BUN Creatinine Est GFR (CKD-EPI 2020) Glucose Calcium Magnesium Total Bilirubin Conjugated Bilirubin AST ALT Alkaline Phosphatase C-Reactive Protein Total Protein Albumin Cancelled Lipase 14 L Procalcitonin 4.9 Urine Color Yellow Urine Clarity Clear Urine pH 5.5 Ur Specific [place] 1.010 Urine Protein 100 H Urine Ketones Negative Urine Blood Small H Urine Nitrite Negative Urine Bilirubin Negative Urine Urobilinogen 0.2 Ur Leukocyte Esterase Negative Urine RBC 0-2 Urine WBC Negative Ur Epithelial Cells Rare Urine Crystals Negative Urine Bacteria Negative Urine Casts 0-2 Hyaline Urine Mucus Negative Ur Culture Indicated? No Urine Glucose >=1000 H Last Vital Signs Temp 36.7 C 09/26/23 16:43 Pulse 75 09/26/23 16:43 Resp 18 09/26/23 16:43 BP 121/61 09/26/23 16:43 Pulse Ox 97 09/26/23 16:43 Time Spent Time spent with Patient: 55-74 minutes Time was spent: preparing to see the patient(eg.review tests), obtaining and/or reviewing separately otained hiistory, ordering medications,tests, procedures, referring, communicating with other health care process manager, indepentently interpreting results, counseling the patient and care coordination
[2023-09-26 18:43] LABS: Lactate 0.8 mmol/L (0.6-1.4)
[2023-09-26] MEDS: Normal Saline 100 ML 30 ML (19:58)
[2023-09-26] MEDS: Acetaminophen 325 MG TAB PO (21:08)
[2023-09-26] MEDS: NIFEdipine-CR 30 MG TABCR 90 MG PO (21:09)
[2023-09-26] MEDS: guanFACINE 1 MG TAB 2 MG PO (21:10)
[2023-09-26] MEDS: Tamsulosin 0.4 MG CAPCR PO (21:11)
[2023-09-26] MEDS: Oxybutynin 5 MG TAB 10 MG PO (21:11)
[2023-09-26] MEDS: Rivaroxaban 2.5 MG TABLET PO (21:11)
[2023-09-26] MEDS: levETIRAcetam 500 MG TAB 1000 MG PO (21:12)
[2023-09-26] MEDS: Potassium Chloride 10 MEQ CAPCR 20 MEQ PO (22:40)
[2023-09-26] MEDS: MAGNESIUM SULFATE 2 GM/50 ML BAG IVINF (23:44)
--- NOTE | 2023-09-27 | DI.CT_ITS ---
Exam(s) CT ABD AORTA CTA W RUNOFF EXAM: CT ABD AORTA CTA W RUNOFF CLINICAL HISTORY: ischemic left foot. TECHNIQUE: Imaging Protocol: Axial CT angiography was performed with multi-slice acquisition and mu lti-planar and/or 3D reconstructions. CONTRAST MATERIAL: Intravenous: Omnipaque 350 Contrast volume:150 ml Contrast route:IV - Oral:no COMPARISON: CT CHEST FOR PULMONARY EMBOLUS from 12/30/2016 US ABDOMEN ULTRASOUND (P) from 12/31/2016 CR XR FOOT LT COMPLETE from 09/26/2023 CR XR PORTABLE CHEST AP from 09/26/2023 FINDINGS: Exam is mildly limited by motion. Vascular Structures: Abdomen: Celiac Reading/SMA: No evidence of stenosis. Renal Arteries: No evidence of stenosis. There is a single renal artery perfusing each kidney. Aorta: No aneurysm. No dissection. Distal aortic stent. Pelvis: Iliac Arteries: No evidence of stenosis. Bilateral common iliac artery stents. Common Femoral Arteries: No evidence of stenosis. Lower extremities: Bilateral total knee prostheses. Right: Below the knee amputation. Common Femoral: No evidence of stenosis. Superficial Femoral: Stent in place. Occlusion from the midportion involving the stent, to the leve l of the knee. The popliteal artery is obscured by artifact from the knee prosthesis. Left: Common Femoral: No evidence of stenosis. Superficial Femoral: Stent in place. Occluded from proximal portion through the level of the knee. There is artifact limiting visualization of the popliteal artery. Knee Trifurcation: Some flow is reconstituted below the level of the popliteal artery. Posterior ti bial and peroneal vessels are of diminutive caliber but patent into the foot.. The anterior tibial a rtery is occluded in the mid lower leg. Dorsalis pedis is not seen. Abdomen and pelvis: Lungs: Trace bilateral pleural effusions. Mild dependent atelectasis. Liver: Mildly enlarged. Fatty infiltration. No measurable mass. Gallbladder and biliary tract: No radiodense calculus or dilation. Pancreas: Normal density, no abnormal calcifications or inflammatory process. Spleen: Enlarged at 16 cm in length. Kidneys: Normal size, contour and axis. No radiodense stones or obstructive uropathy. No masses seen. Adrenal glands: No masses seen. Aorta: Abdominal portion non-dilated. Bladder: Symmetric distention, no gross wall thickening. Bowel: No obstruction or bowel wall thickening. Appendix normal. Peritoneal cavity: No ascites, collection or mesenteric inflammatory response. Bones: Within normal limits. Reproductive: Unremarkable. Soft tissues: Abnormally enlarged left inguinal lymph node measuring 5 cm in length by 3.3 cm transve rse. IMPRESSION: Occlusion of the left superficial femoral and popliteal artery stents with reconstitution at the lev el of the trifurcation. Occlusion of the anterior tibial artery in the mid lower leg. Posterior t ibial peroneal arteries patent to the level of the foot. Occlusion of the right superficial femoral artery stent. Below the knee amputation. No significant stenosis involving renal or mesenteric vessels. No acute abnormality within the abdom en or pelvis. RADIATION DOSE DELIVERED: Total DLP DATA REPOSITORY: All CT scans at this facility are submitted to the National Radiology Data Registry (NRDR) Dose Index Registry (DIR) with the [employer] (ACR). RADIATION OPTIMIZATION: All CT scans at this facility use at least one of these dose optimization te chniques: automated exposure control; mA and/or kV adjustment per patient size (includes targeted exa ms where dose is matched to clinical indication); or iterative reconstruction.
[2023-09-27] MEDS: Insulin Aspart 300 UNITS/3 ML PEN SC ×4 (00:33→17:43)
[2023-09-27 00:42] VITALS: BP 147/63; PULSE 64; RESP 16; TEMP 37; O2SAT 96
[2023-09-27] MEDS: VANCOMYCIN/WATER (PEG) 1 GM/200 ML BAG IVPB (02:04)
--- NOTE | 2023-09-27 02:16 | WOUNDCONS_ITS ---
Date of service: 09/27/23 Time of Service: 02:22 Wound Initial Evaluation Narrative Narrative: 63 year old male patient with history of DM and right leg BKA presents with left foot diabetic plantar wound over the first and second MTP heads. The patient reports having the wound all summer with documented initial treatment in June of 2023. Initially the patient was reluctant to discuss nor allow this contract technical writer to complete the consult. However after establishing a good rapport, the patient signed the photo consent and this contract technical writer was allowed to assess the wound with limitations that included no debridement. The patient also has severe vascular disease with a venous stasis ulcer on left lower leg. Past medical history includes status post femoral-popliteal bypass surgery and left sided ischemic stroke with recovery. The admitting provider requested a MRI which demonstrated the presence of osteomyelitis. The patient was admitted 09/26/2023 for sepsis. The H&P and recent labs were reviewed and the allergy to metformin was noted. BMI is 31.6 and the last reported A1C in August 2023 was 8.5%. Wound Plantar Aspect of Left Foot: Wound Type: Diabetic Ulcer Wound General Appearance: Blackened Wound Bed Greatest Portion: Black (Eschar) Percent of Wound Bed Eschar/Black: 100 Wound Length: 5.5 cm Wound Width: 6.5 cm Wound Drainage Amount: Minimal Wound Drainage Odor: Strong and Foul Odor Wound Drainage Description: Bloody and Brown Additional Other Comments: Patient refused any debridement methods at time of assessment. Patient is awaiting Podiatry consult and patient is requesting a specific vascular surgeon to assist with wound care going forward. Surgical debridement is strongly recommended by this contract technical writer, of which the patient is refusing at this time. Circulation, Sensation, Motion Peripheral Pulse Strength: Absent Pain Pain Description: Achy Photo Photo: Treatment/Dressing Change Topicals/Ointments: Medihoney Dressing Types: Elastic Bandage, Kerlix (Gauze Roll) and Telfa Additional Other Comments: Patient refused wound cleanser as part of dressing change Nutrition Education Note: Discussed increased protein needs for optimal wound healing. Pt aware A1C is 8.5% Recomendation Recomendation:: Keep left foot slightly elevated on pillow Remove dressing daily if soiled. Unwrap Pillo bandage, remove and discard Kerlix and Telfa. If patient will allow, spray with wound cleanser Apply Medline MediHoney to blackened wound bed and cover with Telfa. Wrap with Kerlix and Pillo bandage Physcian/Nurse Practioner Notified: Yes (Dr. Lopez) Treatment Time Time Total Time Spent with Patient: 45 minutes
[2023-09-27 02:32] LABS: MRSA PCR Negative (Negative)
[2023-09-27] MEDS: CEFEPIME 2 GM in Normal Saline 100 ML IVPB ×2 (06:01→13:53)
[2023-09-27 06:06] VITALS: BP 150/61; PULSE 69; RESP 16; TEMP 36.6; O2SAT 97
[2023-09-27 06:49] LABS: Abs Immature Grans 0.12 10^3/uL (0.0-0.06); Absolute Lymphocyte Count 1.79 10^3/uL (1.2-3.4); Absolute Monocyte Count 0.99 10^3/uL (0.1-0.8); Basophils % 0.4 %; HCT 33.7 % (40.0-50.0); HGB 10.9 g/dL (13.5-17.5); Immature Grans % 0.7 %; MCH 26.2 pg (27.0-33.0); MCHC 32.3 % (32.0-36.0); MCV 81 fL (80-95); MPV 10.2 fL (8.0-11.0); Monocytes % 6.1 %; Neutrophils % 80.8 %; Platelet Count 256 10^3/uL (130-400); RBC 4.16 10^6/uL (4.36-5.78); RDW 13.2 % (11.8-14.1); WBC 16.25 10^3/uL (4.4-10.8)
[2023-09-27 06:52] LABS: Absolute Basophil Count 0.07 10^3/uL (0.0-0.2); Absolute Eosinophil Count 0.16 10^3/uL (0.0-0.7); Absolute Neutrophil Count 13.13 10^3/uL (1.2-6.7)
[2023-09-27 07:08] LABS: Anion Gap 6.8 mmol/L (3-11); BUN 15 mg/dL (7-18); CO2 31.2 mmol/L (21.0-32.0); CREATININE 0.7 mg/dL (0.70-1.30); Calcium 9.9 mg/dL (8.5-10.1); Chloride 100 mmol/L (98-107); Estimated GFR 102.25 (mL/min/1.73m2); Glucose 191 mg/dL (74-106); Magnesium 1.9 mg/dL (1.8-2.4); Potassium 3.1 mmol/L (3.5-5.1); Sodium 138 mmol/L (136-145)
[2023-09-27 07:23] VITALS: BP 133/59; PULSE 67; RESP 17; TEMP 36.8; O2SAT 93
[2023-09-27] MEDS: NIFEdipine-CR 30 MG TABCR 90 MG PO ×2 (09:15→20:17)
[2023-09-27] MEDS: levETIRAcetam 500 MG TAB 1000 MG PO ×2 (09:16→20:17)
[2023-09-27] MEDS: Empaglifozin 10 MG TAB PO (09:16)
[2023-09-27] MEDS: Cholecalciferol (Vitamin D3) 1,000 UNIT TAB 1000 UNITS PO (09:16)
[2023-09-27] MEDS: Losartan 50 MG TAB 100 MG PO (09:16)
[2023-09-27] MEDS: Normal Saline Flush 10 ML SYR IVP ×2 (09:17→15:04)
[2023-09-27] MEDS: Chlorthalidone 25 MG TAB PO (09:17)
[2023-09-27] MEDS: Insulin Glargine 300 UNITS/3 ML PEN 44 UNITS SC (09:17)
[2023-09-27] MEDS: Aspirin E.C. 81 MG TABEC PO (09:17)
[2023-09-27] MEDS: Atorvastatin 40 MG TAB PO (09:17)
[2023-09-27] MEDS: Rivaroxaban 2.5 MG TABLET PO ×2 (09:17→20:17)
[2023-09-27] MEDS: Potassium Chloride Liquid 20 MEQ PKT 40 MEQ PO (09:17)
--- NOTE | 2023-09-27 09:57 | PDOC.CMIN ---
Date of service: 09/27/23 Time of Service: 09:57 Care Management Initial Assmt Initial Assessment Reason for Hospitalization: Cellulitis of left lower leg, Diabetic ulcer of foot with fat layer exposed Functional Status/Living Situation Patient Presentation: Jose Guadalupe was awake, lying in bed with the HOB elevated when CM met with him. He is pleasant and easily engages in conversation. Jose Guadalupe has a gangrenous left foot and is being treated for sepsic with cultures pending. Patient will likely need transfer to a tertiary hospital. Town of Residence: [place] Resides with: Alone Significant Other/Family: Local Natural Supports: Mother, stays will him occasionally, helps him around the house and grocery shop when needed. Employment Status: Disabled Instrumental Activities of Daily Living (ADLs): Independent Activities/Hobbies/SocialSupport: Enjoys going to the [employer], and having breakfast with friends daily. Medications Medication Management: No Issues/Barriers identified Physical Functioning/Mobility Assistive Device: Uses a wheelchair at home, Right leg prosthestic. Advance Directives Advance Directives: Do you have an Advance Directive: N 01/04/14 00:59 AD On File at [facility]: N 04/30/12 07:11 Date Asked 09/26/23 09/26/23 11:31 AD Date Reviewed COLST On File at [facility] No 07/19/23 16:43 COLST Date Scanned Code Status Resuscitation Status Full Code Insurance Coverage/Financial Issues Insurance: [employer] Health Plans [facility] Medicare Part A & B Financial Issues: None per pt Care Team Visit Care Team Role Provider Type Karey Kennedy Primary Care Provider NURSE PRACTITIONER Migdalia Sy, DPM Other Providers [facility] STAFF PHYSICIAN Orlando Singh CRNA Other Providers [facility] NURSE SLICE CUTTING MACHINE OPERATOR AMISH MorganM Other Providers [facility] STAFF PHYSICIAN ANTHONY Shane Emergency Provider PHYSICIANS REFINERY PROCESS ENGINEER Karlos Lopez MD Admit Provider [facility] STAFF PHYSICIAN Attending Provider Discharge Potential Discharge Needs: PT Evaluation and Surgical F/U Appt Anticipated Barriers to Discharge: None Identified Patient/Family Education Needs: Review discharge instructions, discuss Ask Me Three Plan: Anticipate, patient will be transferred to a tertiary hospital for Gangrene in his left foot. Patient is willing to transfer to [facility]. CM will continue to follow. PFSH All Active Problems (Updated 09/26/23 @ 22:12 by Karlos Lopez MD) Diabetic wet gangrene of the foot (Acute) Sepsis (Acute) Type 2 diabetes mellitus with left diabetic foot ulcer (Chronic) Diabetes mellitus with neuropathy (Chronic) Atherosclerosis of artery of both lower extremities (Chronic) Below-knee amputation of right lower extremity (Chronic) Venous stasis ulcer of left lower leg with edema of left lower leg (Chronic) Ulcer of left lower extremity with fat layer exposed (Chronic) Ulcer of left foot with fat layer exposed (Acute) BPH loc w urin obs/LUTS (Acute) Hypercalcemia (Acute) Diabetes mellitus with insulin therapy (Acute) Type 2 diabetes mellitus with peripheral vascular disease (Acute) Status post below knee amputation of right lower extremity (Acute) Anticoagulated (Acute) on xarelto due to h/o PAD Nocturia (Acute) Seizure disorder (Chronic) Had 2 seizures since CVA Peripheral vascular disease (Chronic 03/28/16) Status post blilateral femoral artery stents. 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 Social History Smoking/Tobacco Use Status: Former Tobacco Use Quit Date: 02/24/89 Tobacco: How many years used: 15 Smoking risk assessment performed?: Yes Alcohol Intake: never Drug use: Never Substance use type: does not use Caregiver/Support person: No Household members: spouse and none Housing: apartment Communication Needs: None Do you need help understanding health information?: Never Pets and animals: Yes Pets and animals: dog(s) Sexually active: Yes Do you think of yourself as: straight/heterosexual Current gender identity: male What is your relationship status?: How often do you talk on the phone with friends or family?: three or more times per week How often do you get together with friends or relatives?: three or more times per week How often do you attend methodist or congregation services?: 1-3 times per year Do you belong to any clubs or organized social groups?: yes Panel score (0-1 are the most socially isolated patients): 2 What type of physical activity do you participate in: decline to answer Duration: decline to answer Frequency: decline to answer Marina/Anglican: Evangelical Special marina needs: No Seatbelt use: always Helmet use: Yes Helmet use: always Drive intox or ride w/intox hazmat tanker driver: No Do you feel safe at home: Yes Do you feel safe in your relationship?: Yes SDOH(Care Management) Screening Will the Patient Participate in the Screening?: Yes Do you worry about having a steady place to live?: no Problems where you live: no known problems In the past 12 months, have you had to go without electric, gas, oil or water in your home?: no Have you or anyone in your house had to go without enough food to eat?: no Has lack of transportation kept you from medical appointments or from doing things needed for daily living?: no Has anyone in your support network made you feel unsafe for any reason?: no
[2023-09-27 11:07] LABS: Vancomycin, Random 9.4 ug/mL
--- NOTE | 2023-09-27 11:48 | PHA.REVIEW2 ---
Pharmacy Admission Review Admission Clinical Review Admission Pharmacy Review: Diabetic wet gangrene of the foot (Acute) Sepsis (Acute) Anticoagulated (Acute) metformin Adverse Reaction (Mild, Verified 09/26/23 11:36) Diarrhea Resuscitation Status Full Code Height 5 ft 10 in Weight 99.798 kg Pharmacy Admission Review Renal Dosing Renal Dosing: BUN 15 mg/dL (7-18) 09/27/23 06:13 Creatinine 0.7 mg/dL (0.70-1.30) 09/27/23 06:13 Medications needing adjustments: Reviewed (CrCl 87.21 mL/min) List of meds needing interventions: Current medications are okay Anticoagulation Anticoagulation: Hgb 10.9 g/dL (13.5-17.5) L 09/27/23 06:13 Hct 33.7 % (40.0-50.0) L 09/27/23 06:13 Plt Count 256 10^3/uL (130-400) 09/27/23 06:13 Creatinine 0.7 mg/dL (0.70-1.30) 09/27/23 06:13 DVT Prophylaxis: Reviewed (Hgb decreased from 12.2) Medications: Rivaroxaban (2.5mg PO BID) Relevant Labs Relevant Labs: Sodium 138 mmol/L (136-145) 09/27/23 06:13 Potassium 3.1 mmol/L (3.5-5.1) L 09/27/23 06:13 Chloride 100 mmol/L (98-107) 09/27/23 06:13 Magnesium 1.9 mg/dL (1.8-2.4) 09/27/23 06:13 C-Reactive Protein 16.87 mg/dL (<or=0.5) H 09/26/23 12:40 Electrolytes, C-Reactive P, ESR: Reviewed (K 3.1 - repleting with oral supplement) DM Control DM Control: Glucose 191 mg/dL (74-106) H 09/27/23 06:13 Finger Stick Blood Glucose 220 1146 Finger Stick Blood Glucose 220 1146 Finger Stick Blood Glucose 215 0918 Finger Stick Blood Glucose 215 0917 Finger Stick Blood Glucose 215 0743 Finger Stick Blood Glucose 215 0743 DM Control: Reviewed Insulin Dosing, Diabetic Medication: Has order for SS insulin, glargine 44 units every morning and Jardiance 10mg daily Cardiac Review Cardiac Review: Blood Pressure 133/59 0723 Blood Pressure 150/61 0606 Blood Pressure 147/63 0042 BP, HR, EF%: Reviewed (HR WNL) QTc Review QTc: Reviewed (No EKG on file) IV to PO Switch IV Medications: Reviewed (cefepime and vancomycin) Home Meds Home Med List reviewed: Intervened Relevent Home Meds Not ordered & why?: metformin (on hold) and Flovent (substituted with Asmanex per pharmacy protocol) Reached out to provider as orders were put in for furosemide, sertraline and finasteride - none of these per external fill history have been filled in some time. Provider asked that the orders be canceled Current Meds Current Medication Order Review: Reviewed Pharmacy Antibiotic Review Relevant Labs: Relevant Labs 09/26/23 12:40 C-Reactive Protein 16.87 H Procalcitonin 4.9 WBC 16.25 10^3/uL (4.4-10.8) H 09/27/23 06:13 Procalcitonin 4.9 ng/mL 09/26/23 12:40 Temperature 36.8 C Temperature 36.6 C Temperature 37.0 C Microbiology 09/26/23 17:54 Wound Culture - Preliminary Foot - Left Gram Positive Estefanía,Mixed Gram Negative Estefanía,Mixed Gram Stain - Final 09/26/23 12:40 Blood Culture - Preliminary Blood Gram Negative Remy Pharmacy Antibiotic Activity: C/S review and Reviewed, no change Comments: Patient is on cefepime and vancomycin, day 1 for sepsis/diabetic foot ulcer. Vanomcyin level was 9.4 today at 1010. Based on level order was changed to 1500mg q12h with predicted AUC of 513 and trough of 15.7. Due to change in dose, another level ordered for tomorrow with morning labs. Cultures coming back as gram negative remy (blood) and gram negative/positive estefanía (wound). WBC decreased from 20.3. Per morning meeting patient will require surgery.
--- NOTE | 2023-09-27 12:08 | PGE_ITS ---
Date of Service Date of service: 09/27/23 Time of Service: 12:08 Assessment and Plan Assessment and plan (1) Sepsis: Status: Acute Assessment and plan: secondary to gangrene of left foot from chronic ulcer of left 1st and 2nd MTP joint w/ abscess and necrotic toes. Patient needs aortogram w/ runoffs and then transfer to tertiary care center. He is willing to go to [facility]. Continue Cefepime and Vancomycin, although most likely is gram negative organism given that his one blood culture is growing gram negative ron. Qualifiers: Sepsis type: sepsis due to unspecified organism Sepsis acute organ dysfunction status: without acute organ dysfunction Qualified Code(s): A41.9 - Sepsis, unspecified organism (2) Diabetic wet gangrene of the foot: Status: Acute Assessment and plan: see above (3) Type 2 diabetes mellitus with left diabetic foot ulcer: Status: Chronic Assessment and plan: check glucose AC/HS, cover w/ basal/bolus insulin, he is not in DKA or HHNK. I have adjusted his dosing and added CHO coverage (4) Diabetes mellitus with neuropathy: Status: Chronic Qualifiers: Diabetes mellitus type: type 2 Diabetes mellitus skilled nursing insulin use: with longwall shearer operator use Qualified Code(s): E11.40 - Type 2 diabetes mellitus with diabetic neuropathy, unspecified; Z79.4 - long term care pharmacist (current) use of insulin (5) Anticoagulated: Status: Acute Assessment and plan: chronic anticoagulation d/t is PAD; also he had prior CVA w/ full recovery but had seizures after his CVA and now is on Keppra (6) Seizure disorder: Status: Chronic Assessment and plan: continue Keppra (7) Peripheral vascular disease: Status: Chronic Assessment and plan: cont. ASA, rivaroxaban and atorvastatin Subjective Subjective Interval history since last seen: Patient is anxious, worried about losing his left foot. 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 I explained to him that he has gangrene in his left foot w/ air/abscess and osteomyelitis and needs urgent surgery and as a minimum needs debridement and resection of the first and second digit of his left foot and clean out the abscess. I told him that depending on the circulation of his left foot, he may need a transmetatarsal amputation or BKA but first he needs evaluation of his circulation and referral to tertiary care center for vascular evaluation and surgical intervention of the abscess and nercrotic toes. Exam Narrative Exam Narrative: Patient is tearful, talking on the phone w/ his daughter Marion, whom I spoke w/ regarding my plan for aortogram w/ runoff to evaluate his circulation and my plan to refer him to [facility]. I explained that there is no vascular surgeon at [place], [place] Lungs: clear heart: RRR, soft grade 2 systolic murmur over apex Abdomen: bruits in right and left upper abdomen, bruits over both femoral areas, none heard over popliteal areas, no palpable popliteal pulse in left leg, he has strong right posterior tibial pulse but no DP pulse I did not take down his dressing today from his left foot, wound has foul odor Objective Last Vital Signs Temp 36.8 C 09/27/23 07:23 Pulse 67 09/27/23 07:23 Resp 17 09/27/23 07:23 BP 133/59 L 09/27/23 07:23 Pulse Ox 93 09/27/23 07:23 Laboratory Results - last 24 hr 09/26/23 09/26/23 09/26/23 12:34 12:40 12:40 WBC 20.30 H RBC 4.59 Hgb 12.2 L D Hct 37.1 L MCV 81 MCH 26.6 L MCHC 32.9 RDW 13.1 Plt Count 278 MPV 10.2 Immature Gran % 0.7 Neutrophils % 88.3 Lymphocytes % 5.1 Monocytes % 5.4 Eosinophils % 0.2 Basophils % 0.3 Nucleated RBC % 0.0 Absolute Neutrophils 17.92 H Absolute Lymphocytes 1.04 L Absolute Monocytes 1.10 H Absolute Eosinophils 0.04 Absolute Basophils 0.06 VBG pH Cancelled 7.46 H VBG pCO2 Cancelled 46 VBG pO2 Cancelled 33 VBG HCO3 Cancelled 32 H VBG Total CO2 Cancelled 29 VBG O2 Saturation Cancelled 63 VBG Base Excess Cancelled 9 H VBG Lactate 1.6 H Sodium 134 L Cancelled Potassium 3.4 L D Chloride Carbon Dioxide Anion Gap BUN Creatinine Est GFR (CKD-EPI 2020) Glucose Calcium Magnesium Total Bilirubin Conjugated Bilirubin AST ALT Alkaline Phosphatase C-Reactive Protein Total Protein Albumin Lipase Procalcitonin Urine Color Urine Clarity Urine pH Ur Specific Childwold Urine Protein Urine Ketones Urine Blood Urine Nitrite Urine Bilirubin Urine Urobilinogen Ur Leukocyte Esterase Urine RBC Urine WBC Ur Epithelial Cells Urine Crystals Urine Bacteria Urine Casts Urine Mucus Ur Culture Indicated? Urine Glucose Random Vancomycin MRSA (TEM-PCR) 09/26/23 09/26/23 09/26/23 12:40 12:40 12:40 WBC RBC Hgb Hct MCV MCH MCHC RDW Plt Count MPV Immature Gran % Neutrophils % Lymphocytes % Monocytes % Eosinophils % Basophils % Nucleated RBC % Absolute Neutrophils Absolute Lymphocytes Absolute Monocytes Absolute Eosinophils Absolute Basophils VBG pH VBG pCO2 VBG pO2 VBG HCO3 VBG Total CO2 VBG O2 Saturation VBG Base Excess VBG Lactate Sodium Potassium Cancelled Chloride 94 L Cancelled Carbon Dioxide 33.2 H Cancelled Anion Gap 6.8 BUN Creatinine Est GFR (CKD-EPI 2020) Glucose Calcium Magnesium Total Bilirubin Conjugated Bilirubin AST ALT Alkaline Phosphatase C-Reactive Protein Total Protein Albumin Lipase Procalcitonin Urine Color Urine Clarity Urine pH Ur Specific Childwold Urine Protein Urine Ketones Urine Blood Urine Nitrite Urine Bilirubin Urine Urobilinogen Ur Leukocyte Esterase Urine RBC Urine WBC Ur Epithelial Cells Urine Crystals Urine Bacteria Urine Casts Urine Mucus Ur Culture Indicated? Urine Glucose Random Vancomycin MRSA (TEM-PCR) 09/26/23 09/26/23 09/26/23 12:40 12:40 12:40 WBC RBC Hgb Hct MCV MCH MCHC RDW Plt Count MPV Immature Gran % Neutrophils % Lymphocytes % Monocytes % Eosinophils % Basophils % Nucleated RBC % Absolute Neutrophils Absolute Lymphocytes Absolute Monocytes Absolute Eosinophils Absolute Basophils VBG pH VBG pCO2 VBG pO2 VBG HCO3 VBG Total CO2 VBG O2 Saturation VBG Base Excess VBG Lactate Sodium Potassium Chloride Carbon Dioxide Anion Gap Cancelled BUN 20 H Cancelled Creatinine 1.0 Cancelled Est GFR (CKD-EPI 2020) 83.52 Glucose Calcium Magnesium Total Bilirubin Conjugated Bilirubin AST ALT Alkaline Phosphatase C-Reactive Protein Total Protein Albumin Lipase Procalcitonin Urine Color Urine Clarity Urine pH Ur Specific Childwold Urine Protein Urine Ketones Urine Blood Urine Nitrite Urine Bilirubin Urine Urobilinogen Ur Leukocyte Esterase Urine RBC Urine WBC Ur Epithelial Cells Urine Crystals Urine Bacteria Urine Casts Urine Mucus Ur Culture Indicated? Urine Glucose Random Vancomycin MRSA (TEM-PCR) 09/26/23 09/26/23 09/26/23 12:40 12:40 12:40 WBC RBC Hgb Hct MCV MCH MCHC RDW Plt Count MPV Immature Gran % Neutrophils % Lymphocytes % Monocytes % Eosinophils % Basophils % Nucleated RBC % Absolute Neutrophils Absolute Lymphocytes Absolute Monocytes Absolute Eosinophils Absolute Basophils VBG pH VBG pCO2 VBG pO2 VBG HCO3 VBG Total CO2 VBG O2 Saturation VBG Base Excess VBG Lactate Sodium Potassium Chloride Carbon Dioxide Anion Gap BUN Creatinine Est GFR (CKD-EPI 2020) Cancelled Glucose 207 H Cancelled Calcium 10.4 H Cancelled Magnesium 1.5 L Total Bilirubin 0.50 Conjugated Bilirubin AST ALT Alkaline Phosphatase C-Reactive Protein Total Protein Albumin Lipase Procalcitonin Urine Color Urine Clarity Urine pH Ur Specific Childwold Urine Protein Urine Ketones Urine Blood Urine Nitrite Urine Bilirubin Urine Urobilinogen Ur Leukocyte Esterase Urine RBC Urine WBC Ur Epithelial Cells Urine Crystals Urine Bacteria Urine Casts Urine Mucus Ur Culture Indicated? Urine Glucose Random Vancomycin MRSA (TEM-PCR) 09/26/23 09/26/23 09/26/23 12:40 12:40 12:40 WBC RBC Hgb Hct MCV MCH MCHC RDW Plt Count MPV Immature Gran % Neutrophils % Lymphocytes % Monocytes % Eosinophils % Basophils % Nucleated RBC % Absolute Neutrophils Absolute Lymphocytes Absolute Monocytes Absolute Eosinophils Absolute Basophils VBG pH VBG pCO2 VBG pO2 VBG HCO3 VBG Total CO2 VBG O2 Saturation VBG Base Excess VBG Lactate Sodium Potassium Chloride Carbon Dioxide Anion Gap BUN Creatinine Est GFR (CKD-EPI 2020) Glucose Calcium Magnesium Total Bilirubin Cancelled Conjugated Bilirubin 0.1 Cancelled AST 20 Cancelled ALT 33 Alkaline Phosphatase C-Reactive Protein Total Protein Albumin Lipase Procalcitonin Urine Color Urine Clarity Urine pH Ur Specific Childwold Urine Protein Urine Ketones Urine Blood Urine Nitrite Urine Bilirubin Urine Urobilinogen Ur Leukocyte Esterase Urine RBC Urine WBC Ur Epithelial Cells Urine Crystals Urine Bacteria Urine Casts Urine Mucus Ur Culture Indicated? Urine Glucose Random Vancomycin MRSA (TEM-PCR) 09/26/23 09/26/23 09/26/23 12:40 12:40 12:40 WBC RBC Hgb Hct MCV MCH MCHC RDW Plt Count MPV Immature Gran % Neutrophils % Lymphocytes % Monocytes % Eosinophils % Basophils % Nucleated RBC % Absolute Neutrophils Absolute Lymphocytes Absolute Monocytes Absolute Eosinophils Absolute Basophils VBG pH VBG pCO2 VBG pO2 VBG HCO3 VBG Total CO2 VBG O2 Saturation VBG Base Excess VBG Lactate Sodium Potassium Chloride Carbon Dioxide Anion Gap BUN Creatinine Est GFR (CKD-EPI 2020) Glucose Calcium Magnesium Total Bilirubin Conjugated Bilirubin AST ALT Cancelled Alkaline Phosphatase 110 Cancelled C-Reactive Protein 16.87 H Total Protein 7.0 Cancelled Albumin 2.8 L Lipase Procalcitonin Urine Color Urine Clarity Urine pH Ur Specific Childwold Urine Protein Urine Ketones Urine Blood Urine Nitrite Urine Bilirubin Urine Urobilinogen Ur Leukocyte Esterase Urine RBC Urine WBC Ur Epithelial Cells Urine Crystals Urine Bacteria Urine Casts Urine Mucus Ur Culture Indicated? Urine Glucose Random Vancomycin MRSA (TEM-PCR) 09/26/23 09/26/23 09/26/23 12:40 12:55 18:00 WBC RBC Hgb Hct MCV MCH MCHC RDW Plt Count MPV Immature Gran % Neutrophils % Lymphocytes % Monocytes % Eosinophils % Basophils % Nucleated RBC % Absolute Neutrophils Absolute Lymphocytes Absolute Monocytes Absolute Eosinophils Absolute Basophils VBG pH VBG pCO2 VBG pO2 VBG HCO3 VBG Total CO2 VBG O2 Saturation VBG Base Excess VBG Lactate Sodium Potassium Chloride Carbon Dioxide Anion Gap BUN Creatinine Est GFR (CKD-EPI 2020) Glucose Calcium Magnesium Total Bilirubin Conjugated Bilirubin AST ALT Alkaline Phosphatase C-Reactive Protein Total Protein Albumin Cancelled Lipase 14 L Procalcitonin 4.9 Urine Color Yellow Urine Clarity Clear Urine pH 5.5 Ur Specific Childwold 1.010 Urine Protein 100 H Urine Ketones Negative Urine Blood Small H Urine Nitrite Negative Urine Bilirubin Negative Urine Urobilinogen 0.2 Ur Leukocyte Esterase Negative Urine RBC 0-2 Urine WBC Negative Ur Epithelial Cells Rare Urine Crystals Negative Urine Bacteria Negative Urine Casts 0-2 Hyaline Urine Mucus Negative Ur Culture Indicated? No Urine Glucose >=1000 H Random Vancomycin MRSA (TEM-PCR) Cancelled 09/26/23 09/26/23 09/27/23 18:38 23:10 06:13 WBC 16.25 H RBC 4.16 L Hgb 10.9 L Hct 33.7 L MCV 81 MCH 26.2 L MCHC 32.3 RDW 13.2 Plt Count 256 MPV 10.2 Immature Gran % 0.7 Neutrophils % 80.8 Lymphocytes % 11.0 Monocytes % 6.1 Eosinophils % 1.0 Basophils % 0.4 Nucleated RBC % 0.0 Absolute Neutrophils 13.13 H Absolute Lymphocytes 1.79 Absolute Monocytes 0.99 H Absolute Eosinophils 0.16 Absolute Basophils 0.07 VBG pH VBG pCO2 VBG pO2 VBG HCO3 VBG Total CO2 VBG O2 Saturation VBG Base Excess VBG Lactate 0.8 Sodium 138 Potassium 3.1 L Chloride 100 Carbon Dioxide 31.2 Anion Gap 6.8 BUN 15 Creatinine 0.7 Est GFR (CKD-EPI 2020) 102.25 Glucose 191 H Calcium 9.9 Magnesium 1.9 Total Bilirubin Conjugated Bilirubin AST ALT Alkaline Phosphatase C-Reactive Protein Total Protein Albumin Lipase Procalcitonin Urine Color Urine Clarity Urine pH Ur Specific Childwold Urine Protein Urine Ketones Urine Blood Urine Nitrite Urine Bilirubin Urine Urobilinogen Ur Leukocyte Esterase Urine RBC Urine WBC Ur Epithelial Cells Urine Crystals Urine Bacteria Urine Casts Urine Mucus Ur Culture Indicated? Urine Glucose Random Vancomycin MRSA (TEM-PCR) Negative 09/27/23 10:10 WBC RBC Hgb Hct MCV MCH MCHC RDW Plt Count MPV Immature Gran % Neutrophils % Lymphocytes % Monocytes % Eosinophils % Basophils % Nucleated RBC % Absolute Neutrophils Absolute Lymphocytes Absolute Monocytes Absolute Eosinophils Absolute Basophils VBG pH VBG pCO2 VBG pO2 VBG HCO3 VBG Total CO2 VBG O2 Saturation VBG Base Excess VBG Lactate Sodium Potassium Chloride Carbon Dioxide Anion Gap BUN Creatinine Est GFR (CKD-EPI 2020) Glucose Calcium Magnesium Total Bilirubin Conjugated Bilirubin AST ALT Alkaline Phosphatase C-Reactive Protein Total Protein Albumin Lipase Procalcitonin Urine Color Urine Clarity Urine pH Ur Specific Childwold Urine Protein Urine Ketones Urine Blood Urine Nitrite Urine Bilirubin Urine Urobilinogen Ur Leukocyte Esterase Urine RBC Urine WBC Ur Epithelial Cells Urine Crystals Urine Bacteria Urine Casts Urine Mucus Ur Culture Indicated? Urine Glucose Random Vancomycin 9.4 MRSA (TEM-PCR) Time Spent with Patient Time Spent with Patient: 35-49 minutes Time was spent: preparing to see the patient(eg.review tests), obtaining and/or reviewing separately otained hiistory, ordering medications,tests, procedures, referring, communicating with other health director of home care hospice, indepentently interpreting results, counseling the patient and care coordination
[2023-09-27 12:49] VITALS: BP 135/60; PULSE 71; RESP 18; TEMP 36.8; O2SAT 93
[2023-09-27] MEDS: Omnipaque 350 MG/ML 50 ML BTL IJ (14:56)
[2023-09-27] MEDS: Omnipaque 350 MG/ML 100 ML BTL IJ (14:58)
[2023-09-27] MEDS: VANCOMYCIN/WATER (PEG) 1.5 GM/300 ML BAG IVPB (15:04)
[2023-09-27 15:38] VITALS: BP 145/64; PULSE 66; RESP 16; TEMP 36.9; O2SAT 96
--- NOTE | 2023-09-27 16:30 | DI.VRAD_ITS ---
PROCEDURE INFORMATION: Exam: CTA Abdominal Aorta and Bilateral Lower Extremities (Run-off) With Contrast Exam date and time: 09/27/2023 2:42 PM Age: 63 years old Clinical indication: Other: Ischemic left foot TECHNIQUE: Imaging protocol: Computed tomographic angiography of the of the abdominal aorta, pelvis and bilateral lower extremities with contrast. 3D rendering (Not supervised by radiologist): MIP and/or 3D reconstructed images were created by the technologist. Radiation optimization: All CT scans at this facility use at least one of these dose optimization techniques: automated exposure control; mA and/or kV adjustment per patient size (includes targeted exams where dose is matched to clinical indication); or iterative reconstruction. Contrast material: OMNIPAQUE 350; Contrast volume: 150 ml; Contrast route: INTRAVENOUS (IV); COMPARISON: MR LOWER EXTREMITY LT WO/W 09/26/2023 3:15 PM FINDINGS: Aorta: Stents in the distal aorta and bilateral iliac arteries. Celiac trunk and mesenteric arteries: No occlusion or significant stenosis. Renal arteries: No occlusion or significant stenosis. Right iliac arteries: No occlusion or significant stenosis. Left femoral/popliteal arteries: Common femoral artery is patent. The superficial femoral and popliteal stents are occluded. Left infrapopliteal arteries: Reconstitution with three-vessel runoff. The anterior tibial artery is occluded in the mid lower leg. The dorsalis pedis is not seen. The posterior tibial and peroneal arteries are visible into the foot. Left iliac arteries: No occlusion or significant stenosis. Right femoral/popliteal arteries: Common femoral artery is patent with moderate stenosis. There is multifocal stenosis in the proximal superficial femoral artery with occlusion of proximally 2 cm above the patient's stent. The SFA stent is occluded. The popliteal artery is heavily calcified and there an below the knee amputation. Right infrapopliteal arteries: Status post below the knee amputation. Pleural spaces: Trace pleural effusions and bibasilar atelectasis. Liver: There is hepatomegaly and fatty infiltration of the liver. There are no focal liver lesions present. Gallbladder and biliary ducts: Unremarkable. No calcified stones. No ductal dilation. Pancreas: Unremarkable. No mass. No ductal dilation. Spleen: Moderate splenomegaly at 16 cm in length. Adrenal glands: Normal. No mass. Kidneys and ureters: Normal. No mass. Stomach and bowel: Unremarkable. No obstruction. No mucosal thickening. Appendix: No evidence of appendicitis. A normal appendix is identified. Urinary bladder: Unremarkable. No mass. Reproductive: Unremarkable as visualized. Intraperitoneal space: Unremarkable. No free air. No significant fluid collection. Lymph nodes: A few enlarged left inguinal lymph nodes. Bones/joints: No acute fracture. No dislocation. Bilateral knee arthroplasties. Status post right [id number] amputation. Soft tissues: There is a small fat-containing umbilical hernia. IMPRESSION: Occlusion of the left femoral and popliteal stents with reconstitution. The anterior tibial artery is occluded mid lower leg, with flow seen in the left posterior tibial and peroneal arteries to the foot. Occlusion of the right SFA stent. Small pleural effusions. Additional findings as described. Dictated and Authenticated by: Kanika Reyes MD. Ordering:.[facility] Jessica Everett MD
[2023-09-27] MEDS: Potassium Chloride Liquid 20 MEQ PKT PO ×2 (17:42→20:16)
--- NOTE | 2023-09-27 17:44 | DSE_ITS ---
Date of service: 09/27/23 Time of Service: 17:44 DS: Diagnosis Discharge Diagnosis (1) Sepsis: Status: Acute Asessment and Plan: secondary to diabetic foot ulcer complicated by severe PAD, and now w/ wet gas gangrene of left foot and osteomyelitis. patient never was in shock and did not require vasopressors. he remains hemodynamically stable despite bacteremia (2) Gram-negative bacteremia: Status: Acute Asessment and Plan: blood cultures postive for gram negative rods in two sets of cultures from yesterday, WBC declined from 20,000 to 16,000, he is afebrile however he has gas gangrene of his left foot and needs urgent surgery. wound gram stain w/ mixed gram positive and mixed gram negative organisms. (3) Diabetic wet gangrene of the foot: Status: Acute (4) Type 2 diabetes mellitus with left diabetic foot ulcer: Status: Chronic (5) Diabetes mellitus with neuropathy: Status: Chronic Asessment and Plan: poorly controlled, HbA1c 8.5%, on insulin and metformin and Jardiance at home (6) Anticoagulated: Status: Acute Asessment and Plan: chronically on rivaroxaban and aspirin last dose given at 09:17 am today (7) Seizure disorder: Status: Chronic Asessment and Plan: no recent seizures, seizures were related to prior CVA, chronically maintained on Keppra 1000 mg bid (8) Peripheral vascular disease: Status: Chronic Asessment and Plan: severe bilateral disease w/ occlusions of his stents: see aortogram w/ bilateral runoffs (9) Essential hypertension: Status: Chronic Asessment and Plan: blood pressure have been stable since admission. at home BP controlled w/ Nifedipine XL 90 mg bid, chlorthalidon 25 mg daily, losartan 100 mg daily Discharge Plan Disposition Patient Disposition: Transfer-Acute Inpatient Care Specific Acute Inpt Facility: [facility] Condition: Stable Discharge Details Reason For Visit: sepsis. diabetic foot ulcer Admit Date/Time: 09/26/23 14:25 Admit Provider: Karlos Lopez Attending Provider: Karlos Lopez Primary Care Provider: Karey Kennedy Hospital Course Hospital Course: 63-year-old male with history of severe peripheral arterial vascular disease status post right lower extremity BKA, previous femoral stents bilaterally, poorly controlled type II DM on insulin who was sent to emergency department by his primary care provider to get some blood work done as she was concerned that he was jaundiced. Patient has been followed by Karey Kennedy and [facility]. Patient developed diabetic foot ulcer about 4 weeks ago had been seen in the emergency department at [facility] in [place] and reportedly had been recommended to see a vascular surgeon. Patient has chosen to follow-up with primary care provider who has been doing local wound care and using an Unna boot dressing. Upon evaluation the emergency department he was noted to have foul-smelling drainage from his right foot and noted to have necrotic ulceration on the plantar surface of his left foot underneath the first and second metatarsal heads in the toes had a necrotic appearance he was noted to have a white count of 20,300 with elevated blood lactate of 1.6. He had a stable anemia with hemoglobin 12.2 g was hypokalemic and hypomagnesemic with a potassium of 3.2 and a magnesium of 1.5. He had normal renal function but low albumin at 2.8. Initially no imaging was done of his foot although he had had a previous foot x- ray and tib-fib x-ray in July 2023 that showed no radiographic evidence of osteomyelitis. Blood cultures were obtained and patient was started on cefepime and vancomycin. Wound cultures obtained. Currently wound culture showing mixed gram-positive estefanía and mixed gram-negative estefanía. Blood cultures are positive for gram-negative rods. Imaging was obtained of his left foot with both a plain film x-ray as well as an MRI. Plain film x-ray shows loss of volume of the head of the second metatarsal bone and new areas of cortical loss in the medial aspect of the head of the first metatarsal bone in the base of the proximal phalanx of the great toe suggestive of osteomyelitis. There is soft tissue gas seen between the first and second digits generalized soft tissue swelling the forefoot. MRI was obtained and confirmed that there is osteomyelitis involving the first and second metatarsal bones and there is a fluid collection adjacent to the second metatarsal flexor tendon suspicious for abscess there is osteomyelitis involving the proximal phalanx of the left great toe. Subsequently patient underwent an aortogram with runoff on the following day that showed occlusion of the left superficial femoral and popliteal artery stents with reconstitution at the level of the trifurcation and occlusion of the anterior tibial artery in the mid lower leg with patent posterior tibial and peroneal arteries to the level of the foot on the right he has an occlusion of the right SFA stent with no stenosis of his renal or mesenteric vessels. Upon admission I recommend the patient be transferred to tertiary care center however he did not want to go to [facility] and balked at going to [facility] and insisted that I contact a vascular surgeon at [facility] whom he said treated one of his friends. I contacted [facility] found that they do not have a vascular surgeon on staff. I then convince the patient to allow me to call [facility] and the transfer center put me in touch with Dr. Amando Villatoro, vascular surgeon. When I told Dr. Villatoro, the results of his aortogram runoff and the lack of pedal pulses in the left foot and the gas gangrene in the left foot, he accepted the patient for transfer and referred me to Dr. Mauricio Nuñez, emergency room provider whom I gave report. Dr. Nuñez graciously accepted the patient in transfer as we have no vasular surgeon, and no orthopedic or podiatric coverage over the weekend and the patient needs emergent surgery. Home Meds and New Rx's Prescriptions: No Action albuterol sulfate [Ventolin HFA] 90 mcg/actuation HFA aerosol inhaler 2 puff inhalation BID PRN (Reason: dyspnea) atorvastatin [Lipitor] 40 mg tablet 40 mg PO DAILY Qty: 90 4RF aspirin 81 mg tablet,delayed release (DR/EC) 81 mg PO DAILY metformin 500 mg tablet 500 mg PO BID Qty: 180 3RF (DME) FreeStyle Adama 14 Day [place] Misc See Rx Instructions .ROUTE .MEDSUPPLY Qty: 1 4RF Rx Instructions: Check blood sugar 4 times a day (DME) FreeStyle Adama 14 Day Sensor Kit See Rx Instructions .ROUTE .MEDSUPPLY Qty: 2 8RF Rx Instructions: Check blood sugar 4 times a day insulin lispro [Humalog Tempo Pen(U-100)Insuln] 100 unit/mL insulin pen 5 unit subcut TID Qty: 15 3RF fluticasone propionate [Flovent HFA] 110 mcg/actuation HFA aerosol inhaler 1 puff inhalation BID PRN Patient Comments: INHALE 1 PUFF TWO TIMES A DAY DIRECTED main use in winter time insulin glargine [Lantus Solostar U-100 Insulin] 100 unit/mL (3 mL) insulin pen 44 unit subcut QAM Qty: 15 12RF losartan 100 mg tablet 100 mg PO DAILY Qty: 90 3RF nifedipine 90 mg tablet extended release 24hr 90 mg PO BID Qty: 180 3RF (DME) prosthetic leg and prosthetic supplies See Rx Instructions .Route .MEDSUPPLY Qty: 1 12RF Rx Instructions: As directed chlorthalidone 25 mg tablet 25 mg PO DAILY Qty: 90 4RF cholecalciferol (vitamin D3) 25 mcg (1,000 unit) capsule 25 mcg PO DAILY Xarelto 2.5 mg tablet 2.5 mg PO BID Qty: 180 4RF levetiracetam [Keppra] 500 mg tablet 1,000 mg PO BID Qty: 360 1RF finasteride 5 mg tablet 5 mg PO DAILY Qty: 90 3RF tamsulosin 0.4 mg capsule 0.4 mg PO QHS Qty: 90 1RF oxybutynin chloride 5 mg tablet 10 mg PO HS Patient Comments: TAKE TWO TABLETS BY MOUTH EVERY DAY AT BEDTIME furosemide 20 mg tablet 20 mg PO DAILY Patient Comments: TAKE ONE TABLET BY MOUTH EVERY DAY FOR 1 WEEK guanfacine 2 mg tablet 2 mg PO HS Patient Comments: TAKE ONE TABLET BY MOUTH AT BEDTIME Jardiance 10 mg tablet 10 mg PO DAILY Patient Comments: TAKE ONE TABLET BY MOUTH EVERY DAY sertraline 50 mg tablet 50 mg PO DAILY Patient Comments: TAKE ONE TABLET BY MOUTH EVERY DAY Discharge Instructions Instructions: Osteomyelitis in adults, Sepsis in adults, Gangrene (DC) Activity:: bedrest Equipment/Supplies:: No Equipment Needed Diet:: Carb Counting DS: Summary Time Spent with Patient providing and/or coordinating discharge services: Greater than 30 minutes Specific discharge activities: Interview/exam of patient, educating patient and/or family about need for transfer and alternative treatment options, coordination of transfer w/ receiving facility and discussion of case w/ accepting provider(s), completion of transfer orders and discharge summary Status at Discharge Functional status at discharge: bed bound Overall status at discharge: patient is not back to baseline Mental Status: mental status grossly normal Speech and Movement: speech and movement normal Mood: congruent mood Affect: normal affect and anxious affect Quality:SDOH Health Related Social Needs: No Data to Display Exam Narrative Exam Narrative: Patient is tearful, talking on the phone w/ his daughter Marion, whom I spoke w/ regarding my plan for aortogram w/ runoff to evaluate his circulation and my plan to refer him to [facility]. I explained that there is no vascular surgeon at [place], [place] Lungs: clear heart: RRR, soft grade 2 systolic murmur over apex Abdomen: bruits in right and left upper abdomen, bruits over both femoral areas, none heard over popliteal areas, no palpable popliteal pulse in left leg, he has strong right posterior tibial pulse but no DP pulse I did not take down his dressing today from his left foot, wound has foul odor, I had looked at the wound last night and pictures are in the chart. Psych Mental Status: mental status grossly normal Speech and Movement: speech and movement normal Mood: congruent mood Affect: normal affect and anxious affect DS: Data Vitals/I&O Vitals and I&O: Vital Signs Temperature 36.9 C 09/27/23 15:38 Temperature Source Temporal Artery Scan 09/27/23 15:38 Pulse 66 09/27/23 15:38 Pulse Rhythm Regular 09/27/23 13:58 Pulse 87 09/26/23 14:20 Respiratory Rate 16 09/27/23 15:38 Respiratory Effort Normal, Non-Labored 09/27/23 13:58 Respiratory Depth Normal 09/27/23 13:58 Respiratory Pattern Normal 09/27/23 13:58 Blood Pressure 145/64 H 09/27/23 15:38 Blood Pressure Mean 83 09/26/23 14:16 Pulse Oximetry 96 09/27/23 15:38 Oxygen Delivery Method Room Air 09/27/23 15:38 Oxygen Flow Rate 0 09/27/23 15:38 Pain Level 0 09/27/23 15:38 Comment MAP 76 09/26/23 20:07 Intake & Output 09/26/23 09/27/23 09/27/23 23:59 11:59 23:59 Intake Total 1500 / 1500 910 / 1150 240 / 1150 Output Total 775 / 775 1475 / 2250 775 / 2250 Balance 725 / 725 -565 / -1100 -535 / -1100 Weight 99.798 kg Intake: IV 1500 / 1500 410 / 410 Oral 500 / 740 240 / 740 Output: Urine 775 / 775 1475 / 2250 775 / 2250 Other: Urine Color Yellow Yellow Yellow Urine Appearance Clear Clear Clear Urine Odor Normal Normal Voiding Methods Urinal Urinal Data Completed and Pending Labs on day of discharge: Labs from last 24 hours 09/27/23 09/27/23 09/26/23 10:10 06:13 23:10 WBC 16.25 H RBC 4.16 L Hgb 10.9 L Hct 33.7 L MCV 81 MCH 26.2 L MCHC 32.3 RDW 13.2 Plt Count 256 MPV 10.2 Immature Gran % 0.7 Neutrophils % 80.8 Lymphocytes % 11.0 Monocytes % 6.1 Eosinophils % 1.0 Basophils % 0.4 Nucleated RBC % 0.0 Absolute Neutrophils 13.13 H Absolute Lymphocytes 1.79 Absolute Monocytes 0.99 H Absolute Eosinophils 0.16 Absolute Basophils 0.07 VBG Lactate Sodium 138 Potassium 3.1 L Chloride 100 Carbon Dioxide 31.2 Anion Gap 6.8 BUN 15 Creatinine 0.7 Est GFR (CKD-EPI 2020) 102.25 Glucose 191 H Calcium 9.9 Magnesium 1.9 Random Vancomycin 9.4 MRSA (TEM-PCR) Negative 09/26/23 09/26/23 18:38 18:00 WBC RBC Hgb Hct MCV MCH MCHC RDW Plt Count MPV Immature Gran % Neutrophils % Lymphocytes % Monocytes % Eosinophils % Basophils % Nucleated RBC % Absolute Neutrophils Absolute Lymphocytes Absolute Monocytes Absolute Eosinophils Absolute Basophils VBG Lactate 0.8 Sodium Potassium Chloride Carbon Dioxide Anion Gap BUN Creatinine Est GFR (CKD-EPI 2020) Glucose Calcium Magnesium Random Vancomycin MRSA (TEM-PCR) Cancelled 09/26/23 17:54 Foot - Left Anaerobic Culture - Pending Preliminary micro results at discharge 09/26/23 13:06 Blood Culture - Preliminary Blood Gram Negative Remy 09/26/23 12:40 Blood Culture - Preliminary Blood Gram Negative Remy 09/26/23 17:54 Wound Culture - Preliminary Foot - Left Gram Positive Estefanía,Mixed Gram Negative Estefanía,Mixed 09/26/23 17:54 Anaerobic Culture - Pending Foot - Left PFSH All Active Problems (Updated 09/27/23 @ 17:46 by Karlos Lopez MD) Gram-negative bacteremia (Acute) Diabetic wet gangrene of the foot (Acute) Sepsis (Acute) Type 2 diabetes mellitus with left diabetic foot ulcer (Chronic) Diabetes mellitus with neuropathy (Chronic) Atherosclerosis of artery of both lower extremities (Chronic) Below-knee amputation of right lower extremity (Chronic) Venous stasis ulcer of left lower leg with edema of left lower leg (Chronic) Ulcer of left lower extremity with fat layer exposed (Chronic) Ulcer of left foot with fat layer exposed (Acute) BPH loc w urin obs/LUTS (Acute) Hypercalcemia (Acute) Diabetes mellitus with insulin therapy (Acute) Type 2 diabetes mellitus with peripheral vascular disease (Acute) Status post below knee amputation of right lower extremity (Acute) Anticoagulated (Acute) on xarelto due to h/o PAD Nocturia (Acute) Seizure disorder (Chronic) Had 2 seizures since CVA Peripheral vascular disease (Chronic 03/28/16) Status post blilateral femoral artery stents. 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 Social History Smoking/Tobacco Use Status: Former Tobacco Use Quit Date: 02/24/89 Tobacco: How many years used: 15 Smoking risk assessment performed?: Yes Alcohol Intake: never Drug use: Never Substance use type: does not use Caregiver/Support person: No Household members: spouse and none Housing: apartment Communication Needs: None Do you need help understanding health information?: Never Pets and animals: Yes Pets and animals: dog(s) Sexually active: Yes Do you think of yourself as: straight/heterosexual Current gender identity: male What is your relationship status?: How often do you talk on the phone with friends or family?: three or more times per week How often do you get together with friends or relatives?: three or more times per week How often do you attend jew or mormonism services?: 1-3 times per year Do you belong to any clubs or organized social groups?: yes Panel score (0-1 are the most socially isolated patients): 2 What type of physical activity do you participate in: decline to answer Duration: decline to answer Frequency: decline to answer Marina/Hindu: [employer] Special marina needs: No Seatbelt use: always Helmet use: Yes Helmet use: always Drive intox or ride w/intox flatbed driver: No Do you feel safe at home: Yes Do you feel safe in your relationship?: Yes Time Spent with Patient Time Spent with Patient: 45-69 minutes Time was spent: preparing to see the patient(eg.review tests), ordering medications,tests, procedures, referring, communicating with other health manager urgent care, indepentently interpreting results, counseling the patient and care coordination
[2023-09-27] MEDS: Acetaminophen 325 MG TAB PO (18:26)
[2023-09-27 19:35] VITALS: BP 133/76; PULSE 80; RESP 20; TEMP 37; O2SAT 95
[2023-09-27] MEDS: Tamsulosin 0.4 MG CAPCR PO (20:17)
[2023-09-27] MEDS: guanFACINE 1 MG TAB 2 MG PO (20:17)
[2023-09-27] MEDS: oxyCODONE 5 MG TAB PO (21:17)
--- NOTE | 2023-09-28 14:08 | NUR.NOTE ---
Daughter called asking about the patient's belongings that were left at [facility] when he was transferred to [facility]. He was an inpt at the time of discharge so the call was put to [place]. Nursing Note:
== END 2023-09-27 21:21 | disposition short-term general hospital (02) | DRG 872 ==
LOC: ER 14:54 → MS 15:15
PROVIDERS: Admitting Provider Internal Medicine; Emergency Provider Physician Assistant; PCP Nurse Practitioner Family; Visit Provider Internal Medicine
DX: A41.9 Sepsis, unspecified organism (principal); E11.52 Type 2 diabetes mellitus with diabetic peripheral angiopathy with gangrene; M86.8X7 Other osteomyelitis, ankle and foot; M87.875 Other osteonecrosis, left foot; L03.116 Cellulitis of left lower limb; I70.262 Atherosclerosis of native arteries of extremities with gangrene, left leg; E11.621 Type 2 diabetes mellitus with foot ulcer; E11.40 Type 2 diabetes mellitus with diabetic neuropathy, unspecified; Z79.01 Long term (current) use of anticoagulants; Z79.4 Long term (current) use of insulin; G40.909 Epilepsy, unspecified, not intractable, without status epilepticus; L97.529 Non-pressure chronic ulcer of other part of left foot with unspecified severity; Z89.511 Acquired absence of right leg below knee; Z95.828 Presence of other vascular implants and grafts; D64.9 Anemia, unspecified; E11.69 Type 2 diabetes mellitus with other specified complication; I70.201 Unspecified atherosclerosis of native arteries of extremities, right leg; N40.1 Benign prostatic hyperplasia with lower urinary tract symptoms; Z96.653 Presence of artificial knee joint, bilateral; I10 Essential (primary) hypertension; J45.909 Unspecified asthma, uncomplicated; R35.1 Nocturia; R48.3 Visual agnosia; I69.398 Other sequelae of cerebral infarction; E11.65 Type 2 diabetes mellitus with hyperglycemia
CPT/HCPCS: 00123; 36415; 75635; 80048; 80076; 82805; 83690; 84145; 87040; 87077; 87641; 94640; 96365; 96366; 96367; 96375; 99285; 71045; 73630; 73720; 80202; 81003; 81015; 83605; 83735; 85025; 86140; 87070; 87075; 87186; 87205; 99222; 99239; J0131; J0692; J1815; J3372; J3475; J3490; J7620; Q9967

== ENCOUNTER 2024-05-12 11:33 | Emergency (ER) | payer MEDICARE, SELFPAY ==
[2024-05-12 11:39] VITALS: BP 133/74; PULSE 75; RESP 16; TEMP 36.6; O2SAT 95
[2024-05-12 11:43] VITALS: BP 137/74; PULSE 75; RESP 16; TEMP 36.6; O2SAT 95
--- NOTE | 2024-05-12 11:51 | ED.GENADUL_ITS ---
Discharge Plan Disposition Patient Disposition: Home Condition: Stable Discharge Details Clinical Impression: Open wnd foot-complicated Primary Care Provider: Karey Kennedy ED Provider: Jessi Brock Meds and New Rx's Prescriptions: New amoxicillin-pot clavulanate 875-125 mg tablet 1 tab PO BID Qty: 14 0RF doxycycline hyclate 100 mg capsule 100 mg PO BID Qty: 14 0RF Continued albuterol sulfate [Ventolin HFA] 90 mcg/actuation HFA aerosol inhaler 2 puff inhalation BID PRN (Reason: dyspnea) atorvastatin [Lipitor] 40 mg tablet 40 mg PO DAILY Qty: 90 4RF aspirin 81 mg tablet,delayed release (DR/EC) 81 mg PO DAILY metformin 500 mg tablet 500 mg PO BID Qty: 180 3RF (DME) FreeStyle Adama 14 Day [place] Misc See Rx Instructions .ROUTE .MEDSUPPLY Qty: 1 4RF Rx Instructions: Check blood sugar 4 times a day (DME) FreeStyle Adama 14 Day Sensor Kit See Rx Instructions .ROUTE .MEDSUPPLY Qty: 2 8RF Rx Instructions: Check blood sugar 4 times a day insulin lispro [Humalog Tempo Pen(U-100)Insuln] 100 unit/mL insulin pen 5 unit subcut TID Qty: 15 3RF fluticasone propionate [Flovent HFA] 110 mcg/actuation HFA aerosol inhaler 1 puff inhalation BID PRN Patient Comments: INHALE 1 PUFF TWO TIMES A DAY DIRECTED main use in winter time insulin glargine [Lantus Solostar U-100 Insulin] 100 unit/mL (3 mL) insulin pen 44 unit subcut QAM Qty: 15 12RF losartan 100 mg tablet 100 mg PO DAILY Qty: 90 3RF nifedipine 90 mg tablet extended release 24hr 90 mg PO BID Qty: 180 3RF (DME) prosthetic leg and prosthetic supplies See Rx Instructions .Route .MEDSUPPLY Qty: 1 12RF Rx Instructions: As directed chlorthalidone 25 mg tablet 25 mg PO DAILY Qty: 90 4RF cholecalciferol (vitamin D3) 25 mcg (1,000 unit) capsule 25 mcg PO DAILY Xarelto 2.5 mg tablet 2.5 mg PO BID Qty: 180 4RF levetiracetam [Keppra] 500 mg tablet 1,000 mg PO BID Qty: 360 1RF finasteride 5 mg tablet 5 mg PO DAILY Qty: 90 3RF tamsulosin 0.4 mg capsule 0.4 mg PO QHS Qty: 90 1RF oxybutynin chloride 5 mg tablet 10 mg PO HS Patient Comments: TAKE TWO TABLETS BY MOUTH EVERY DAY AT BEDTIME furosemide 20 mg tablet 20 mg PO DAILY Patient Comments: TAKE ONE TABLET BY MOUTH EVERY DAY FOR 1 WEEK guanfacine 2 mg tablet 2 mg PO HS Patient Comments: TAKE ONE TABLET BY MOUTH AT BEDTIME Jardiance 10 mg tablet 10 mg PO DAILY Patient Comments: TAKE ONE TABLET BY MOUTH EVERY DAY sertraline 50 mg tablet 50 mg PO DAILY Patient Comments: TAKE ONE TABLET BY MOUTH EVERY DAY Discharge Instructions Instructions: Diabetic Foot Ulcer (DC), Cellulitis (skin infection) in adults - Discharge instructions Additional Instructions: As we discussed, I believe that you do have an infection in the foot but it does appear to be more in the soft tissues and does not extend into the bone. Please take the antibiotics as prescribed. Reviewed if symptoms improve, please take the entire course. Please continue with your high-protein, wound healing diet. Please encourage hydration. Please continue other medications. Please continue to have home health evaluate the wound. You have a scheduled appointment next Friday, the , at 2:15 in the afternoon at the main campus at [facility]. If you have difficulty with transportation, please call the hospital and discussed with care management. If you have any worsening symptoms between now and then, [facility] did encourage you to call the office, . If you develop fever/chills, increased redness or other new/worsening symptoms please seek care urgently once again. Referrals: Earle Villatoro [ NON-[facility] STAFF PHYSICIAN] - 05/19/24 2:15 pm Karey Kennedy [Primary Care Provider] - Discharge Data Discharge Date/Time-TO BE ENTERED AT DEPARTURE: 05/12/24 15:44 HPI General Date/Time Provider Initiated Documentation: 05/12/24 11:35 . Limitations to Documentation: no limitations . Information obtained by: patient and RN notes reviewed . History of Present Illness 63 year old M presents to the emergency department with the chief complaint of diabetic foot wound, left foot, described as moderate, Quality is described as aching, Patient reports no radiation. Patient started experiencing this unknown (first noted by home health this AM) and it has been constant. Patient notes no other symptoms.; denies diaphoresis, fever/chills, nausea/vomiting, shortness of breath and weakness. Patient did receive the following treatments prior to arrival, none Related Data Home Medications ?Medication ?Instructions ?Recorded ?Confirmed albuterol sulfate 90 mcg/actuation 2 puff inhalation BID PRN dyspnea 08/23/22 05/12/24 aerosol inhaler (Ventolin HFA) aspirin 81 mg tablet,delayed 81 mg PO DAILY 08/23/22 05/12/24 release atorvastatin 40 mg tablet (Lipitor) 40 mg PO DAILY #90 tab-caps 08/23/22 05/12/24 metformin 500 mg tablet 500 mg PO BID #180 tabs 08/23/22 05/12/24 chlorthalidone 25 mg tablet 25 mg PO DAILY #90 tab-caps 09/10/22 05/12/24 fluticasone propionate 110 1 puff inhalation BID PRN 10/03/22 05/12/24 mcg/actuation HFA aerosol inhaler (Flovent HFA) cholecalciferol (vitamin D3) 25 25 mcg PO DAILY 10/04/22 05/12/24 mcg (1,000 unit) capsule rivaroxaban 2.5 mg tablet (Xarelto) 2.5 mg PO BID #180 tabs 11/25/22 05/12/24 insulin glargine 100 unit/mL (3 44 unit (0.44 mL) subcut QAM #15 mL 12/24/22 05/12/24 mL) subcutaneous pen (Lantus Solostar U-100 Insulin) losartan 100 mg tablet 100 mg PO DAILY #90 tab-caps 12/24/22 05/12/24 nifedipine 90 mg tablet,extended 90 mg PO BID #180 tab-caps 12/24/22 05/12/24 release 24 hr prosthetic leg and prosthetic #1 ea 12/25/22 09/26/23 supplies flash glucose scanning reader #1 ea 02/28/23 05/12/24 (FreeStyle Adama 14 Day [place]) flash glucose sensor (FreeStyle #2 ea 02/28/23 05/12/24 Adama 14 Day Sensor kit) insulin lispro 100 unit/mL 5 unit (0.05 mL) subcut TID #15 mL 02/28/23 05/12/24 subcutaneous pen (Humalog Tempo Pen (U-100) Insulin) levetiracetam 500 mg tablet 1,000 mg (2 x 500 mg) PO BID #360 03/31/23 05/12/24 (Keppra) tabs finasteride 5 mg tablet 5 mg PO DAILY #90 tabs 04/08/23 05/12/24 tamsulosin 0.4 mg capsule 0.4 mg PO QHS #90 caps 05/12/23 05/12/24 empagliflozin 10 mg tablet 10 mg PO DAILY 09/26/23 05/12/24 (Jardiance) furosemide 20 mg tablet 20 mg PO DAILY 09/26/23 05/12/24 guanfacine 2 mg tablet 2 mg PO HS 09/26/23 05/12/24 oxybutynin chloride 5 mg tablet 10 mg PO HS 09/26/23 05/12/24 sertraline 50 mg tablet 50 mg PO DAILY 09/26/23 05/12/24 amoxicillin 875 mg-potassium 1 tab PO BID #14 tabs 05/12/24 clavulanate 125 mg tablet doxycycline hyclate 100 mg capsule 100 mg PO BID #14 caps 05/12/24 Previous Rx's ?Medication ?Instructions ?Recorded atorvastatin 40 mg tablet (Lipitor) 40 mg PO DAILY #90 tab-caps 08/23/22 metformin 500 mg tablet 500 mg PO BID #180 tabs 08/23/22 chlorthalidone 25 mg tablet 25 mg PO DAILY #90 tab-caps 09/10/22 rivaroxaban 2.5 mg tablet (Xarelto) 2.5 mg PO BID #180 tabs 11/25/22 insulin glargine 100 unit/mL (3 44 unit (0.44 mL) subcut QAM #15 mL 12/24/22 mL) subcutaneous pen (Lantus Solostar U-100 Insulin) losartan 100 mg tablet 100 mg PO DAILY #90 tab-caps 12/24/22 nifedipine 90 mg tablet,extended 90 mg PO BID #180 tab-caps 12/24/22 release 24 hr prosthetic leg and prosthetic #1 ea 12/25/22 supplies flash glucose scanning reader #1 ea 02/28/23 (FreeStyle Adama 14 Day [place]) flash glucose sensor (FreeStyle #2 ea 02/28/23 Adama 14 Day Sensor kit) insulin lispro 100 unit/mL 5 unit (0.05 mL) subcut TID #15 mL 02/28/23 subcutaneous pen (Humalog Tempo Pen (U-100) Insulin) levetiracetam 500 mg tablet 1,000 mg (2 x 500 mg) PO BID #360 03/31/23 (Keppra) tabs finasteride 5 mg tablet 5 mg PO DAILY #90 tabs 04/08/23 tamsulosin 0.4 mg capsule 0.4 mg PO QHS #90 caps 05/12/23 amoxicillin 875 mg-potassium 1 tab PO BID #14 tabs 05/12/24 clavulanate 125 mg tablet doxycycline hyclate 100 mg capsule 100 mg PO BID #14 caps 05/12/24 Allergies Allergy/AdvReac Type Severity Reaction Status Date / Time metformin AdvReac Mild Diarrhea Verified 05/12/24 11:44 General Stated Complaint: GenMedical JIM: 4 Review of Systems Constitutional Constitutional: Reports as per HPI, Denies chills, Denies fever(s) and Denies weakness Cardiovascular Cardiovascular: Reports as per HPI Respiratory Respiratory: Reports as per HPI and Denies cough Musculoskeletal Musculoskeletal: Reports as per HPI Integumentary/Breasts Skin/Breast: Reports as per HPI, Denies rash and Denies wounds Neurologic Neurologic: Reports as per HPI and Denies weakness Exam Const General: cooperative, healthy appearing, comfortable, no acute distress, well developed and well groomed Nutritional Appearance: average body habitus and well nourished Orientation: alert and awake Resp Effort & Inspection: normal respiratory effort, able to speak in complete sentences and no respiratory distress Cardio Rate: regular rate Rhythm: regular rhythm Neuro General: patient alert and patient awake Cognition: normal cognition Speech: speech normal Gait: normal gait Motor: muscle tone normal throughout Sensory Exam: no sensory deficits noted Extrem Ankle/foot/toe images: 2 1. area of 3mm open, draining wound. Surrounding erythema, about 1cm in diameter. He has had amputation of all toes, incisions have healed well, this area does not involve the prior incision site. Course Vital Signs Vital signs: Vital Signs Temperature 36.6 C 05/12/24 11:39 Pulse 75 05/12/24 11:39 Respiratory Rate 16 05/12/24 11:39 Blood Pressure 133/74 05/12/24 11:39 Pulse Oximetry 95 05/12/24 11:39 Temperature 36.6 C 05/12/24 11:43 Temperature Source Oral 05/12/24 11:43 Pulse 75 05/12/24 11:43 Respiratory Rate 16 05/12/24 11:43 Blood Pressure 137/74 05/12/24 11:43 Blood Pressure Position Sitting 05/12/24 11:39 Pulse Oximetry 95 05/12/24 11:43 Oxygen Delivery Method Room Air 05/12/24 11:43 Oxygen Flow Rate 0 05/12/24 11:39 Medical Decision Making Nasim is a pleasant 63 year old male, presenting for evaluation of wound to left foot. Patient has BKA on the contralateral side. He had toes resected last summer on the left side. He had been healing well, was supposed to get prosthesis today. However, his home health nurse, who last saw him Friday, noted that he had a new wound along hte lateral side of the foot distal foot at the area of debridement. He states taht his baseline sensation is limited but, starting yesterday, he noted some discomfort. No fevers/chills. Has some redness along anterior tibia but he states this is baseline and unchanged. Home health nurse cleaned, applied bandage. He was last seen by his surgical team for debridment last week per patient report, states he is seen at [facility] remote clinic, at [facility]. On exam, nasim appears non-toxic. Hemodynamically stable. Exam of the RLE signficant for small open, draining, circular wound, about 3mm in diameter. Drainage is purulent. Tender to palpation. unable to visualize or palpate deeper structures. Incision from toe resection last year has healed well, this seems more lateral and closer to sole of foot. Erythema anterior left calf, non- tender, no swelling or drainage. No crepitus or fluctuance. Concerned for possible osteomyelitis in [place] setting of chronic diabetic foot wounds. he does not appear to be critically ill, no evidence of sepsis. By UTD standards, this would be a mild DM foot wound infection. Despite this, concerned for the progression of this given his history. Will obtain labs, x-ray and reevaluate. Called home health to find surgical team. Amando Crenshaw and Karey Kennedy. Spoke with vascular team at [facility]. they will call back, going to see if they can expidite appointment for outpatietn management. XR reviewed by radiologist: IMPRESSION: Soft tissue swelling. No plain film evidence of osteomyelitis. Labs reviewed. White count of 12.3. ESR of 28. CRP 3.0. On chart review, this is low for the patient. Labs otherwise without significant abnormality. [facility] called back, team was able to speak with surgeon. They are able to see the patient Early next week is soonest appointment but he can call the office if he develops any worsening symptoms. While labs are elevated, not compared to his baseline. He does not appear systemically ill, is able to be seen in few days but his surgical team. He is able to return urgently if things worsen. Feelt hat outpatient management is appropriate at this time. 2:15, at [facility] main [place]. discussed with patient. We discussed abx coverage, follow up with his surgical team. He feels well supported by home health and surgical team. he is able to return with any new/worsening symptoms. Wound culture was sent. Wound was dressed, new boot given. Strict return precautions discussed. All of his questions and concerns were addressed, he is in agreement with rosalia daniels. Quality:SDOH Health Related Social Needs: 2 No Data to Display PFSH All Active Problems (Updated 05/12/24 @ 14:59 by ANTHONY Salas) Open wnd foot-complicated (Acute) Gram-negative bacteremia (Acute) Diabetic wet gangrene of the foot (Acute) Sepsis (Acute) Type 2 diabetes mellitus with left diabetic foot ulcer (Chronic) Diabetes mellitus with neuropathy (Chronic) Atherosclerosis of artery of both lower extremities (Chronic) Below-knee amputation of right lower extremity (Chronic) Venous stasis ulcer of left lower leg with edema of left lower leg (Chronic) Ulcer of left lower extremity with fat layer exposed (Chronic) Ulcer of left foot with fat layer exposed (Acute) BPH loc w urin obs/LUTS (Acute) Hypercalcemia (Acute) Diabetes mellitus with insulin therapy (Acute) Type 2 diabetes mellitus with peripheral vascular disease (Acute) Status post below knee amputation of right lower extremity (Acute) Anticoagulated (Acute) on xarelto due to h/o PAD Nocturia (Acute) Seizure disorder (Chronic) Had 2 seizures since CVA Peripheral vascular disease (Chronic 03/28/16) Status post blilateral femoral artery stents. 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 Social History Smoking/Tobacco Use Status: Former Tobacco Use Quit Date: 02/24/89 Tobacco: How many years used: 15 Smoking risk assessment performed?: Yes Alcohol Intake: never Drug use: Never Substance use type: does not use Caregiver/Support person: No Household members: spouse and none Housing: apartment Communication Needs: None Do you need help understanding health information?: Never Pets and animals: Yes Pets and animals: dog(s) Sexually active: Yes Do you think of yourself as: straight/heterosexual Current gender identity: male What is your relationship status?: How often do you talk on the phone with friends or family?: three or more times per week How often do you get together with friends or relatives?: three or more times per week How often do you attend methodist or jewish services?: 1-3 times per year Do you belong to any clubs or organized social groups?: yes Panel score (0-1 are the most socially isolated patients): 2 What type of physical activity do you participate in: decline to answer Duration: decline to answer Frequency: decline to answer Marina/Rastafari: Caodaism Special marina needs: No Seatbelt use: always Helmet use: Yes Helmet use: always Drive 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
--- NOTE | 2024-05-12 12:45 | DI.RAD_ITS ---
Exam(s) XR FOOT LT COMPLETE EXAM: XR FOOT LT COMPLETE CLINICAL HISTORY: wound along latreal side, concern for osteomyeliti. TECHNIQUE: 2D digital imaging was performed. Three views. COMPARISON: No exams were available for comparison FINDINGS: BONES: Prior amputations at the bases of the 1st through 5th toes. No visible erosive changes. Heel spur. JOINTS: No dislocation present. SOFT TISSUE: Diffuse soft tissue swelling, greatest distally. Plantar fascial calcification. IMPRESSION: Soft tissue swelling. No plain film evidence of osteomyelitis. DATA REPOSITORY: RADIATION DOSE DELIVERED:
[2024-05-12 13:38] LABS: Abs Immature Grans 0.03 10^3/uL (0.0-0.06); Absolute Eosinophil Count 0.74 10^3/uL (0.0-0.7); Absolute Monocyte Count 0.76 10^3/uL (0.1-0.8); Absolute Neutrophil Count 8.17 10^3/uL (1.2-6.7); Basophils % 0.6 %; HCT 43.6 % (40.0-50.0); HGB 14.9 g/dL (13.5-17.5); Immature Grans % 0.2 %; Lymphocytes % 20.6 %; MCHC 34.2 % (32.0-36.0); MCV 82 fL (80-95); MPV 9.8 fL (8.0-11.0); Monocytes % 6.2 %; Neutrophils % 66.4 %; Platelet Count 238 10^3/uL (130-400); RBC 5.33 10^6/uL (4.36-5.78); RDW 14.2 % (11.8-14.1); RDW-SD 42.4 fL; WBC 12.31 10^3/uL (4.4-10.8)
[2024-05-12 13:41] LABS: Absolute Basophil Count 0.07 10^3/uL (0.0-0.2); Absolute Lymphocyte Count 2.54 10^3/uL (1.2-3.4)
[2024-05-12 13:43] LABS: ESR 28 mm/hr (0-20)
[2024-05-12 13:56] LABS: ALT 26 U/L (16-63); AST 11 U/L (15-37); Albumin 3.8 g/dL (3.4-5.0); Alkaline Phosphatase 115 U/L (46-116); Anion Gap 6.7 mmol/L (3-11); BUN 20 mg/dL (7-18); Bilirubin, Total 0.4 mg/dL (0.2-1.0); CO2 31.3 mmol/L (21.0-32.0); CREATININE 0.6 mg/dL (0.70-1.30); Calcium 10.7 mg/dL (8.5-10.1); Chloride 103 mmol/L (98-107); Estimated GFR 107.13 (mL/min/1.73m2); Glucose 126 mg/dL (74-106); Potassium 3.6 mmol/L (3.5-5.1); Sodium 141 mmol/L (136-145); Total Protein 7.7 g/dL (6.4-8.2)
[2024-05-12] MEDS: Doxycycline Hyclate 100 MG CAP PO (15:30)
[2024-05-12] MEDS: Amoxicillin 875/Clav. 125 TAB PO (15:30)
[2024-05-12 15:31] VITALS: BP 162/70; PULSE 62; RESP 12; TEMP 36.6; O2SAT 96
== END 2024-05-12 15:44 | disposition home or self-care (01) ==
PROVIDERS: Emergency Provider Physician Assistant; PCP Nurse Practitioner Family
DX: E11.621 Type 2 diabetes mellitus with foot ulcer (principal); L97.428 Non-pressure chronic ulcer of left heel and midfoot with other specified severity; I10 Essential (primary) hypertension; Z86.73 Personal history of transient ischemic attack (TIA), and cerebral infarction without residual deficits; Z79.82 Long term (current) use of aspirin; Z79.84 Long term (current) use of oral hypoglycemic drugs; Z79.4 Long term (current) use of insulin; Z79.01 Long term (current) use of anticoagulants; Z87.891 Personal history of nicotine dependence; Z89.412 Acquired absence of left great toe; Z89.422 Acquired absence of other left toe(s); Z89.511 Acquired absence of right leg below knee
CPT/HCPCS: 36415; 80053; 85652; 87077; 99284; 73630; 85025; 86140; 87070; 87205

== ENCOUNTER 2024-05-26 14:14 | Emergency (ER) | payer MEDICARE, SELFPAY ==
[2024-05-26 14:19] VITALS: BP 132/76; PULSE 85; RESP 12; TEMP 36.6; O2SAT 97
--- NOTE | 2024-05-26 14:40 | ED.GENADUL_ITS ---
Discharge Plan Disposition Patient Disposition: Home Condition: Stable Discharge Details Clinical Impression: Wound of left foot Primary Care Provider: Karey Kennedy ED Provider: Jose Guadalupe Ruby Home Meds and New Rx's Prescriptions: Continued albuterol sulfate [Ventolin HFA] 90 mcg/actuation HFA aerosol inhaler 2 puff inhalation BID PRN (Reason: dyspnea) atorvastatin [Lipitor] 40 mg tablet 40 mg PO DAILY Qty: 90 4RF aspirin 81 mg tablet,delayed release (DR/EC) 81 mg PO DAILY metformin 500 mg tablet 500 mg PO BID Qty: 180 3RF (DME) FreeStyle Adama 14 Day [place] Misc See Rx Instructions .ROUTE .MEDSUPPLY Qty: 1 4RF Rx Instructions: Check blood sugar 4 times a day (DME) FreeStyle Adama 14 Day Sensor Kit See Rx Instructions .ROUTE .MEDSUPPLY Qty: 2 8RF Rx Instructions: Check blood sugar 4 times a day insulin lispro [Humalog Tempo Pen(U-100)Insuln] 100 unit/mL insulin pen 5 unit subcut TID Qty: 15 3RF fluticasone propionate [Flovent HFA] 110 mcg/actuation HFA aerosol inhaler 1 puff inhalation BID PRN Patient Comments: INHALE 1 PUFF TWO TIMES A DAY DIRECTED main use in winter time insulin glargine [Lantus Solostar U-100 Insulin] 100 unit/mL (3 mL) insulin pen 44 unit subcut QAM Qty: 15 12RF losartan 100 mg tablet 100 mg PO DAILY Qty: 90 3RF nifedipine 90 mg tablet extended release 24hr 90 mg PO BID Qty: 180 3RF (DME) prosthetic leg and prosthetic supplies See Rx Instructions .Route .MEDSUPPLY Qty: 1 12RF Rx Instructions: As directed chlorthalidone 25 mg tablet 25 mg PO DAILY Qty: 90 4RF cholecalciferol (vitamin D3) 25 mcg (1,000 unit) capsule 25 mcg PO DAILY Xarelto 2.5 mg tablet 2.5 mg PO BID Qty: 180 4RF levetiracetam [Keppra] 500 mg tablet 1,000 mg PO BID Qty: 360 1RF finasteride 5 mg tablet 5 mg PO DAILY Qty: 90 3RF tamsulosin 0.4 mg capsule 0.4 mg PO QHS Qty: 90 1RF oxybutynin chloride 5 mg tablet 10 mg PO HS Patient Comments: TAKE TWO TABLETS BY MOUTH EVERY DAY AT BEDTIME furosemide 20 mg tablet 20 mg PO DAILY Patient Comments: TAKE ONE TABLET BY MOUTH EVERY DAY FOR 1 WEEK Jardiance 10 mg tablet 10 mg PO DAILY Patient Comments: TAKE ONE TABLET BY MOUTH EVERY DAY sertraline 50 mg tablet 50 mg PO DAILY Patient Comments: TAKE ONE TABLET BY MOUTH EVERY DAY Discharge Instructions Additional Instructions: Your wound did not appear infected on exam today. It is a superficial wound that is not tunneling so my suspicion that you have a bone infection is low. Follow-up with your primary care provider. If you feel more ill or have spreading redness around the wound or high fevers return to the emergency department for reevaluation HPI General Date/Time Provider Initiated Documentation: 05/26/24 14:15 . Limitations to Documentation: no limitations . Information obtained by: patient . History of Present Illness 64 year old M presents to the emergency department with the chief complaint of foot wound, described as mild, and it has been constant. No relieving factors improve symptom(s), No exacerbating factors reported . Patient notes no other symptoms.; denies fever/chills. Patient did receive the following treatments prior to arrival, none Related Data Home Medications ?Medication ?Instructions ?Recorded ?Confirmed albuterol sulfate 90 mcg/actuation 2 puff inhalation BID PRN dyspnea 08/23/22 05/26/24 aerosol inhaler (Ventolin HFA) aspirin 81 mg tablet,delayed 81 mg PO DAILY 08/23/22 05/26/24 release atorvastatin 40 mg tablet (Lipitor) 40 mg PO DAILY #90 tab-caps 08/23/22 05/26/24 metformin 500 mg tablet 500 mg PO BID #180 tabs 08/23/22 05/26/24 chlorthalidone 25 mg tablet 25 mg PO DAILY #90 tab-caps 09/10/22 05/26/24 fluticasone propionate 110 1 puff inhalation BID PRN 10/03/22 05/26/24 mcg/actuation HFA aerosol inhaler (Flovent HFA) cholecalciferol (vitamin D3) 25 25 mcg PO DAILY 10/04/22 05/26/24 mcg (1,000 unit) capsule rivaroxaban 2.5 mg tablet (Xarelto) 2.5 mg PO BID #180 tabs 11/25/22 05/26/24 insulin glargine 100 unit/mL (3 44 unit (0.44 mL) subcut QAM #15 mL 12/24/22 05/26/24 mL) subcutaneous pen (Lantus Solostar U-100 Insulin) losartan 100 mg tablet 100 mg PO DAILY #90 tab-caps 12/24/22 05/26/24 nifedipine 90 mg tablet,extended 90 mg PO BID #180 tab-caps 12/24/22 05/26/24 release 24 hr prosthetic leg and prosthetic #1 ea 12/25/22 05/26/24 supplies flash glucose scanning reader #1 ea 02/28/23 05/26/24 ([employer] Adama 14 Day [place]) flash glucose sensor (FreeStyle #2 ea 02/28/23 05/26/24 Adama 14 Day Sensor kit) insulin lispro 100 unit/mL 5 unit (0.05 mL) subcut TID #15 mL 02/28/23 05/26/24 subcutaneous pen (Humalog Tempo Pen (U-100) Insulin) levetiracetam 500 mg tablet 1,000 mg (2 x 500 mg) PO BID #360 03/31/23 05/26/24 (Keppra) tabs finasteride 5 mg tablet 5 mg PO DAILY #90 tabs 04/08/23 05/26/24 tamsulosin 0.4 mg capsule 0.4 mg PO QHS #90 caps 05/12/23 05/26/24 empagliflozin 10 mg tablet 10 mg PO DAILY 09/26/23 05/26/24 (Jardiance) furosemide 20 mg tablet 20 mg PO DAILY 09/26/23 05/26/24 oxybutynin chloride 5 mg tablet 10 mg PO HS 09/26/23 05/26/24 sertraline 50 mg tablet 50 mg PO DAILY 09/26/23 05/26/24 Previous Rx's ?Medication ?Instructions ?Recorded atorvastatin 40 mg tablet (Lipitor) 40 mg PO DAILY #90 tab-caps 08/23/22 metformin 500 mg tablet 500 mg PO BID #180 tabs 08/23/22 chlorthalidone 25 mg tablet 25 mg PO DAILY #90 tab-caps 09/10/22 rivaroxaban 2.5 mg tablet (Xarelto) 2.5 mg PO BID #180 tabs 11/25/22 insulin glargine 100 unit/mL (3 44 unit (0.44 mL) subcut QAM #15 mL 12/24/22 mL) subcutaneous pen (Lantus Solostar U-100 Insulin) losartan 100 mg tablet 100 mg PO DAILY #90 tab-caps 12/24/22 nifedipine 90 mg tablet,extended 90 mg PO BID #180 tab-caps 12/24/22 release 24 hr prosthetic leg and prosthetic #1 ea 12/25/22 supplies flash glucose scanning reader #1 ea 02/28/23 (FreeStyle Adama 14 Day [place]) flash glucose sensor (FreeStyle #2 ea 02/28/23 Adama 14 Day Sensor kit) insulin lispro 100 unit/mL 5 unit (0.05 mL) subcut TID #15 mL 02/28/23 subcutaneous pen (Humalog Tempo Pen (U-100) Insulin) levetiracetam 500 mg tablet 1,000 mg (2 x 500 mg) PO BID #360 03/31/23 (Keppra) tabs finasteride 5 mg tablet 5 mg PO DAILY #90 tabs 04/08/23 tamsulosin 0.4 mg capsule 0.4 mg PO QHS #90 caps 05/12/23 Allergies Allergy/AdvReac Type Severity Reaction Status Date / Time metformin AdvReac Mild Diarrhea Verified 05/26/24 14:23 General Stated Complaint: Cellulitis JIM: 3 Review of Systems All systems reviewed & are unremarkable except as noted in HPI and below Constitutional Constitutional: Denies chills, Denies fever(s) and Denies weakness Cardiovascular Cardiovascular: Denies chest pain and Denies dyspnea Respiratory Respiratory: Denies cough and Denies dyspnea Gastrointestinal Gastrointestinal: Denies nausea and Denies vomiting Genitourinary Genitourinary: Denies dysuria Integumentary/Breasts Skin/Breast: Denies rash Neurologic Neurologic: Denies weakness Exam Const General: no acute distress Orientation: alert [facility] Head: normal to inspection Ears: external ears normal General nose exam: external nose normal Mouth: moist mucous membranes Eyes General: appearance normal, both eyes and all related structures Neck Neck: normal visual inspection Resp Effort & Inspection: normal respiratory effort and able to speak in complete sentences Cardio Rate: regular rate Skin General skin exam: no erythema Neuro General: patient alert and patient oriented x3 Extrem General: full ROM, no cyanosis and no edema Psych Mental Status: mental status grossly normal Course Vital Signs Vital signs: Vital Signs Temperature 36.6 C 05/26/24 14:19 Pulse 85 05/26/24 14:19 Respiratory Rate 12 05/26/24 14:19 Blood Pressure 132/76 05/26/24 14:19 Pulse Oximetry 97 05/26/24 14:19 Temperature 36.6 C 05/26/24 14:19 Temperature Source Oral 05/26/24 14:19 Pulse 85 05/26/24 14:19 Respiratory Rate 12 05/26/24 14:19 Blood Pressure 132/76 05/26/24 14:19 Blood Pressure Position Sitting 05/26/24 14:19 Pulse Oximetry 97 05/26/24 14:19 Oxygen Delivery Method Room Air 05/26/24 14:19 Oxygen Flow Rate 0 05/26/24 14:19 Pain Level 0 05/26/24 14:19 Medical Decision Making 64-year-old male with a history of diabetes who has had a distal left foot a mputation and has home health care to manage his foot wounds comes in with home health nursing concerned that he could have a foot infection. He says he feels well and has no fevers and has no complaints. Denies any pain in the leg. He has a very small less than half a centimeter superficial open wound on the left distal portion of his foot without any erythema or tenderness. He says that the wound looks the same as it has been. He is not sure what nursing was really concerned about. He has no swelling of the leg, there is no streaking erythema. The wound is not tunneling so my suspicion for osteomyelitis is low. I offered to order screening labs and x-ray, after discussion with him and him feeling that his wound is unchanged he declines to have any workup done at this current time which I feel is reasonable. He will follow-up with his PCP and return precautions given Differential Diagnosis Differential Diagnosis: Chronic wound, diabetic foot infection Quality:SDOH Health Related Social Needs: No Data to Display PFSH All Active Problems (Updated 05/26/24 @ 14:49 by Jose Guadalupe Ruby MD) Wound of left foot (Acute) Open wnd foot-complicated (Acute) Gram-negative bacteremia (Acute) Diabetic wet gangrene of the foot (Acute) Sepsis (Acute) Type 2 diabetes mellitus with left diabetic foot ulcer (Chronic) Diabetes mellitus with neuropathy (Chronic) Atherosclerosis of artery of both lower extremities (Chronic) Below-knee amputation of right lower extremity (Chronic) Venous stasis ulcer of left lower leg with edema of left lower leg (Chronic) Ulcer of left lower extremity with fat layer exposed (Chronic) Ulcer of left foot with fat layer exposed (Acute) BPH loc w urin obs/LUTS (Acute) Hypercalcemia (Acute) Diabetes mellitus with insulin therapy (Acute) Type 2 diabetes mellitus with peripheral vascular disease (Acute) Status post below knee amputation of right lower extremity (Acute) Anticoagulated (Acute) on xarelto due to h/o PAD Nocturia (Acute) Seizure disorder (Chronic) Had 2 seizures since CVA Peripheral vascular disease (Chronic 03/28/16) Status post blilateral femoral artery stents. 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 Social History Smoking/Tobacco Use Status: Former Tobacco Use Quit Date: 02/24/89 Tobacco: How many years used: 15 Smoking risk assessment performed?: Yes Alcohol Intake: never Drug use: Never Substance use type: does not use Caregiver/Support person: No Household members: spouse and none Housing: apartment Communication Needs: None Do you need help understanding health information?: Never Pets and animals: Yes Pets and animals: dog(s) Sexually active: Yes Do you think of yourself as: straight/heterosexual Current gender identity: male What is your relationship status?: How often do you talk on the phone with friends or family?: three or more times per week How often do you get together with friends or relatives?: three or more times per week How often do you attend mosque or mandaen services?: 1-3 times per year Do you belong to any clubs or organized social groups?: yes Panel score (0-1 are the most socially isolated patients): 2 What type of physical activity do you participate in: decline to answer Duration: decline to answer Frequency: decline to answer Marina/Orthodoxy: [employer] Special marina needs: No Seatbelt use: always Helmet use: Yes Helmet use: always Drive intox or ride w/intox electric train driver: No Do you feel safe at home: Yes Do you feel safe in your relationship?: Yes
== END 2024-05-26 14:59 | disposition home or self-care (01) ==
LOC: ER 15:03
PROVIDERS: Emergency Provider Emergency Medicine; PCP Nurse Practitioner Family
DX: S90.822A Blister (nonthermal), left foot, initial encounter (principal); E11.69 Type 2 diabetes mellitus with other specified complication; I10 Essential (primary) hypertension; Z79.4 Long term (current) use of insulin; Z79.84 Long term (current) use of oral hypoglycemic drugs; Z79.01 Long term (current) use of anticoagulants; Z89.511 Acquired absence of right leg below knee; Z87.891 Personal history of nicotine dependence; X58.XXXA Exposure to other specified factors, initial encounter
CPT/HCPCS: 99283

== ENCOUNTER 2024-05-27 10:48 | Outpatient (CLI) | payer MEDICARE, SELFPAY ==
--- NOTE | 2024-05-27 | DI.RAD_ITS ---
Exam(s) XR FOOT LT COMPLETE EXAM: XR FOOT LT COMPLETE CLINICAL HISTORY: INFECTION B99.9 R/O INFECTION OF BONE. TECHNIQUE: 2D digital imaging was performed of the left foot. Three images were obtained. AP, obli que and lateral views were obtained. COMPARISON: CR XR FOOT LT COMPLETE from 05/12/2024 FINDINGS: BONES: No acute fracture is present. The patient has had amputation of all the toes. Portions of the bases of the 1st through 5th metatarsals are still present. There is irregularity seen at the gerald x at the stump of the 5th metatarsal bone. Osteomyelitis should be considered. The bones otherwise are unremarkable. There is an enthesophyte at the posterior calcaneus. JOINTS: No dislocation present. SOFT TISSUE: Dystrophic calcifications are seen in the soft tissues. IMPRESSION: Question of erosive changes seen at the stump of the 5th metatarsal concerning for osteomyelitis. DATA REPOSITORY: RADIATION DOSE DELIVERED:
--- NOTE | 2024-05-27 | DI.RAD_ITS ---
Exam(s) XR TIB/FIB LT EXAM: XR TIB/FIB LT CLINICAL HISTORY: INFECTION B99.9. TECHNIQUE: 2D digital imaging was performed of the left tibia and fibula. Four images were obtained. AP and lateral views were obtained. COMPARISON: CR XR TIB/FIB LT from 07/28/2023 FINDINGS: BONES: No acute fracture is present. No bony destructive lesion is seen. The patient has a total knee arthroplasty. It is unchanged compared to the prior examination. SOFT TISSUE: There is a vascular stent posterior to the femur. Vascular clips are seen in the soft t issues of the lower leg. IMPRESSION: No radiographic evidence to suggest osteomyelitis. DATA REPOSITORY: RADIATION DOSE DELIVERED:
== END 2024-05-27 11:08 ==
LOC: DI 10:49
PROVIDERS: PCP Nurse Practitioner Family; Visit Provider Nurse Practitioner Family
DX: B99.9 Unspecified infectious disease (principal)
CPT/HCPCS: 73590; 73630

== ENCOUNTER 2024-05-27 12:40 | Outpatient (CLI) | payer MEDICARE, SELFPAY ==
[2024-05-27 11:46] LABS: Abs Immature Grans 0.03 10^3/uL (0.0-0.06); Absolute Basophil Count 0.06 10^3/uL (0.0-0.2); Absolute Eosinophil Count 0.38 10^3/uL (0.0-0.7); Absolute Lymphocyte Count 2.13 10^3/uL (1.2-3.4); Basophils % 0.5 %; Eosinophils % 3.2 %; HCT 47.5 % (40.0-50.0); HGB 15.8 g/dL (13.5-17.5); Immature Grans % 0.3 %; Lymphocytes % 18.2 %; MCH 27.3 pg (27.0-33.0); MCHC 33.3 % (32.0-36.0); MCV 82 fL (80-95); MPV 9.5 fL (8.0-11.0); Monocytes % 6.1 %; Neutrophils % 71.7 %; Platelet Count 296 10^3/uL (130-400); RBC 5.79 10^6/uL (4.36-5.78); RDW 13.7 % (11.8-14.1); RDW-SD 40.6 fL; WBC 11.73 10^3/uL (4.4-10.8)
[2024-05-27 11:51] LABS: Absolute Monocyte Count 0.72 10^3/uL (0.1-0.8); Absolute Neutrophil Count 8.41 10^3/uL (1.2-6.7)
[2024-05-27 11:57] LABS: Hemoglobin A1C 6.8 % (<5.7)
[2024-05-27 12:34] LABS: ALT 24 U/L (16-63); AST 12 U/L (15-37); Albumin 3.8 g/dL (3.4-5.0); Alkaline Phosphatase 131 U/L (46-116); Anion Gap 9.1 mmol/L (3-11); BUN 23 mg/dL (7-18); Bilirubin, Total 0.4 mg/dL (0.2-1.0); CO2 31.9 mmol/L (21.0-32.0); CREATININE 0.9 mg/dL (0.70-1.30); Calcium 10.9 mg/dL (8.5-10.1); Chloride 101 mmol/L (98-107); Estimated GFR 94.19 (mL/min/1.73m2); Glucose 184 mg/dL (74-106); Potassium 3.1 mmol/L (3.5-5.1); Sodium 142 mmol/L (136-145); Total Protein 7.8 g/dL (6.4-8.2)
== END 2024-05-27 12:41 | disposition home or self-care (01) ==
LOC: LBO 12:42
PROVIDERS: PCP Nurse Practitioner Family; Visit Provider Nurse Practitioner Family
DX: E11.8 Type 2 diabetes mellitus with unspecified complications (principal); B99.9 Unspecified infectious disease
CPT/HCPCS: 36415; 80053; 83036; 85025